=== PATIENT | male | born 1960 | race Caucasian/White ===

== ENCOUNTER 2020-06-12 05:32 | Emergency (ER) | payer BC, SELFPAY ==
[2020-06-12 05:45] VITALS: BP 125/78; PULSE 75; RESP 18; TEMP 36.6; O2SAT 99; BMI 22.3
--- NOTE | 2020-06-12 05:45 | ECG_ITS ---
Test Reason : PALPITATIONS Blood Pressure : / mmHG Vent. Rate : 080 BPM Atrial Rate : 080 BPM P-R Int : 134 ms QRS Dur : 094 ms QT Int : 394 ms P-R-T Axes : 052 -06 006 degrees QTc Int : 454 ms Sinus rhythm with Premature supraventricular complexes in a pattern of bigeminy Abnormal ECG No previous ECGs available Referred By: Sophia Kramer Electronically Signed By:JAIME LANCE MD
--- NOTE | 2020-06-12 06:45 | ED.ARRPALP ---
HPI - Arrhythmia/Palpitations General Chief Complaint: Arrhythmia/Palpitations Stated Complaint: HEART RACING Time Seen by Provider: 06/12/20 06:45 Source: patient Mode of arrival: ambulatory Limitations: no limitations History of Present Illness MD complaint: skipped beats and palpitations Onset (ago): hour(s) (few) Duration: constant Severity: mild Context: occurred during rest Associated symptoms: denies other symptoms Related Data Allergies Allergy/AdvReac Type Severity Reaction Status Date / Time acetaminophen [From PERCOCET] Allergy Unknown VOMITING Verified 06/12/20 06:32 oxycodone [From PERCOCET] Allergy Unknown VOMITING Verified 06/12/20 06:32 Review of Systems Review of Systems: Constitutional : No Weight loss, No Fever, No Chills ENT/Mouth : No sore throat, No Rhinorrhea Eyes: No Eye Pain, No Swelling Cardiovascular : no Chest Pain, no SOB, no Dyspnea on Exertion, No Orthopnea, No Edema, pos Palpitations Respiratory : No Cough, No Sputum Gastrointestinal : pos Nausea, No Vomiting, No Diarrhea, No abdominal Pain, No Hematochezia, No Melena Genitourinary : No Dysuria, No Urinary Frequency Musculoskeletal : No joint pain, No Myalgias, No Joint Swelling Skin : No Skin Lesions, No rash Neuro : No Weakness, No Numbness, No Dizziness, No Headache Psych : No Anxiety/Panic, No Depression Heme/Lymph: No Bruising, No Lymphadenopathy Endocrine : No Polyuria, No Polydipsia All other systems reviewed and are negative [facility] Past Medical History Attestation statement: The following information was validated with the patient. Medical History Parkinson disease Surgical History History of back surgery Hx of aortic aneurysm repair Social History Social History Smoking Status: Never smoker Use of substances other than those prescribed or required for medical reasons: No Advance Directives: No Physical Exam Vital Signs: Vital Signs: Last Vital Signs Temp 98 F 06/12/20 05:45 Pulse 71 06/12/20 08:57 Resp 18 06/12/20 08:57 BP 104/62 06/12/20 08:57 Pulse Ox 98 06/12/20 08:57 Body Mass Index 22.3 Appearance: Alert. Oriented X3. No acute distress. Eyes: Pupils equal, round and reactive to light. ENT: Pharynx normal. Neck: Normal inspection. Neck supple. CVS: Normal heart rate and rhythm. Pulses normal. Respiratory: No respiratory distress. Breath sounds normal. Abdomen: Soft and nontender. Skin: Skin warm and dry. Normal skin color. Normal skin turgor. Extremities: No lower extremity edema. No calf ttp Neuro: Oriented X 3. No motor deficit. No sensory deficit. Course Course Course Narrative: no acute findings at this time, stable for DC, PACs will refer to PCP and Cardiology MDM - Arrhythmia/Palpitations MDM Narrative Medical decision making narrative: 59 yo male with hx of Parkinson's s/p aortic thoracic aneurysm repair 10+ years ago - here with palpitations no associated SOB/CP will need labs, lytes, CXR, EKG, PACs seen on tele but not in bigeminy, takes no BB denies GIB symptoms doubt ACS/PE/aneurysm issue, dispo per results and findings Lab Data Result diagrams: 06/12/20 07:05 06/12/20 07:05 Labs: Lab Results 06/12/20 06/12/20 06/12/20 Range/Units 07:05 07:05 07:05 WBC 5.5 (4.8-10.8) X10*3/uL RBC 4.75 (4.60-5.80) X10*6/uL Hgb 14.7 (14.0-18.0) g/dl Hct 43.7 (42-52) % MCV 92.0 (80-98) fL MCH 30.9 (27.0-33.0) pg MCHC 33.6 (31.0-36.0) g/dl RDW 12.8 (11.0-16.0) % Plt Count 187 (160-400) X10*3/uL MPV 9.5 (9.4-12.4) fL Immature Gran % (Auto) 0.2 (0.0-0.4) % Neut % (Auto) 65.4 (45-73) % Lymph % (Auto) 24.5 (20-40) % [place] % (Auto) 6.6 (2-11) % Eos % (Auto) 2.6 (0-4) % Baso % (Auto) 0.7 (0-2) % Lymph # (Auto) 1.3 (1.2-4.9) X10*3/uL [place] # (Auto) 0.4 (0.1-1.2) X10*3/uL Eos # (Auto) 0.1 (0.0-0.4) X10*3/uL Baso # (Auto) 0.0 (0.0-0.2) X10*3/uL Abs Immat Gran (auto) 0.01 (0.00-0.03) X10*3/uL Absolute Neuts (auto) 3.6 (2.0-8.3) X10*3/uL Absolute Nucleated RBC 0.000 (0.0-0.012) X10*3/uL Nucleated RBC % (auto) 0.0 (0.0-0.2) /100WBC Hold Blue Top SEE NOTE Sodium 140 (135-145) mmol/L Potassium 4.3 (3.3-5.1) mmol/l Chloride 106 (96-108) mmol/L Carbon Dioxide 29 (22-29) mmol/L Anion Gap 9 L (12-20) BUN 18 H (9-16) mg/dL Creatinine 1.21 (0.5-1.4) mg/dL Estim Creat Clear Calc 68.3 Estimated GFR > 60 Random Glucose 92 (60-115) mg/dL Calcium 9.0 (8.4-10.2) mg/dL Magnesium (1.6-2.6) mg/dL Total Bilirubin (0.0-1.0) mg/dL Direct Bilirubin (0.0-0.5) mg/dL AST (5-37) U/L ALT (0-40) U/L Alkaline Phosphatase (39-117) U/L Troponin I High Sens (<3.5-35.0) ng/L B-Natriuretic Peptide (<100) pg/mL Total Protein (6.5-8.0) g/dL Albumin (3.5-5.0) g/dL 06/12/20 06/12/20 Range/Units 07:05 07:05 WBC (4.8-10.8) X10*3/uL RBC (4.60-5.80) X10*6/uL Hgb (14.0-18.0) g/dl Hct (42-52) % MCV (80-98) fL MCH (27.0-33.0) pg MCHC (31.0-36.0) g/dl RDW (11.0-16.0) % Plt Count (160-400) X10*3/uL MPV (9.4-12.4) fL Immature Gran % (Auto) (0.0-0.4) % Neut % (Auto) (45-73) % Lymph % (Auto) (20-40) % [place] % (Auto) (2-11) % Eos % (Auto) (0-4) % Baso % (Auto) (0-2) % Lymph # (Auto) (1.2-4.9) X10*3/uL [place] # (Auto) (0.1-1.2) X10*3/uL Eos # (Auto) (0.0-0.4) X10*3/uL Baso # (Auto) (0.0-0.2) X10*3/uL Abs Immat Gran (auto) (0.00-0.03) X10*3/uL Absolute Neuts (auto) (2.0-8.3) X10*3/uL Absolute Nucleated RBC (0.0-0.012) X10*3/uL Nucleated RBC % (auto) (0.0-0.2) /100WBC Hold Blue Top Sodium (135-145) mmol/L Potassium (3.3-5.1) mmol/l Chloride (96-108) mmol/L Carbon Dioxide (22-29) mmol/L Anion Gap (12-20) BUN (9-16) mg/dL Creatinine (0.5-1.4) mg/dL Estim Creat Clear Calc Estimated GFR Random Glucose (60-115) mg/dL Calcium (8.4-10.2) mg/dL Magnesium 2.2 (1.6-2.6) mg/dL Total Bilirubin 0.9 (0.0-1.0) mg/dL Direct Bilirubin 0.4 (0.0-0.5) mg/dL AST 16 (5-37) U/L ALT 18 (0-40) U/L Alkaline Phosphatase 64 (39-117) U/L Troponin I High Sens < 3.5 (<3.5-35.0) ng/L B-Natriuretic Peptide 35 (<100) pg/mL Total Protein 6.5 (6.5-8.0) g/dL Albumin 4.4 (3.5-5.0) g/dL ECG Data Attestation: I personally reviewed and interpreted this ECG as follows: ECG interpretation date: 06/12/20 ECG interpretation time: 08:38 Interpretation: Rate: 68 Rhythm: NSR, occasional PACs Merkel: left Normal P waves. Normal MOMO. Normal QRS complex. ST T wave : normal qTC: normal prior studies: no acute ischemia The study has been interpreted contemporaneously by me. . Discharge Plan Discharge Clinical Impression: Palpitations, PAC (premature atrial contraction) Patient Disposition: Home, Self-Care Additional Instructions: return to ED for any worsening symptoms or concerns YOUR THYROID TEST IS PENDING IF ABNORMAL WE WILL CALL YOU DECREASE YOUR CAFFEINE INTAKE Referrals: Galileo Gore MD [Primary Care Provider] - 2 days (IF NOT BETTER) Vance Hall MD [Physician] - 1 week Stand Alone Forms: Work/School Release
--- NOTE | 2020-06-12 06:54 | XR_ITS ---
EXAMINATION: XR CHEST CLINICAL INFORMATION: Palpitations COMPARISON: None TECHNIQUE: Frontal view of the chest was obtained. FINDINGS: Mild scoliosis convex right dorsal spine. No significant abnormality is noted involving the heart, lungs, mediastinum, bony thorax or soft tissues. XR/XR chest 1V IMPRESSION: No active chest disease.
--- NOTE | 2020-06-12 06:56 | PC.NURSE ---
REPORT FROM NIMISHA MARTINEZ AT BEDSIDE FOR INITIAL EVALUATION PT INFORMED OF THE PLAN OF CARE, TANNERY GUMMER REVEALS NSR, NO ECTOPY
[2020-06-12 07:21] LABS: MANUAL DIFF FLAG NO
[2020-06-12 07:28] LABS: Basophils Percent Auto 0.7 % (0-2); Eosinophils Absolute Auto 0.1 X10*3/uL (0.0-0.4); Eosinophils Percent Auto 2.6 % (0-4); Hematocrit 43.7 % (42-52); Hemoglobin 14.7 g/dl (14.0-18.0); Imm Gran Abs Auto 0.01 X10*3/uL (0.00-0.03); Imm Gran Pct Auto 0.2 % (0.0-0.4); Lymphocytes Absolute Auto 1.3 X10*3/uL (1.2-4.9); Lymphocytes Percent Auto 24.5 % (20-40); Mean Corpuscular HGB Conc 33.6 g/dl (31.0-36.0); Mean Corpuscular Hemoglobin 30.9 pg (27.0-33.0); Mean Platelet Volume 9.5 fL (9.4-12.4); Monocytes Absolute Auto 0.4 X10*3/uL (0.1-1.2); Monocytes Percent Auto 6.6 % (2-11); Neutrophils Absolute Auto 3.6 X10*3/uL (2.0-8.3); Neutrophils Percent Auto 65.4 % (45-73); Platelet Count 187 X10*3/uL (160-400); Red Blood Count 4.75 X10*6/uL (4.60-5.80); Red Cell Distribution Width 12.8 % (11.0-16.0); White Blood Count 5.5 X10*3/uL (4.8-10.8)
[2020-06-12 07:45] LABS: Alanine Aminotransferase 18 U/L (0-40); Albumin Level 4.4 g/dL (3.5-5.0); Alkaline Phosphatase 64 U/L (39-117); Aspartate Amino Transferase 16 U/L (5-37); Bilirubin Direct 0.4 mg/dL (0.0-0.5); Bilirubin Total 0.9 mg/dL (0.0-1.0); Magnesium 2.2 mg/dL (1.6-2.6); Total Protein 6.5 g/dL (6.5-8.0)
[2020-06-12 07:50] LABS: B Type Natriuretic Peptide 35 pg/mL (<100); Troponin-I High Sensitivity < 3.5 ng/L (<3.5-35.0)
[2020-06-12 07:51] LABS: Anion Gap 9 (12-20); Blood Urea Nitrogen 18 mg/dL (9-16); Carbon Dioxide 29 mmol/L (22-29); Chloride 106 mmol/L (96-108); Creatinine Clr Calc Pharmacy 68.3; Estimated Glomerular Filt Rate > 60; Glucose Random 92 mg/dL (60-115); Potassium 4.3 mmol/l (3.3-5.1); Sodium 140 mmol/L (135-145)
--- NOTE | 2020-06-12 08:00 | PC.NURSE ---
NO COMPLAINTS AT THIS TIME, WAITING FOR RESULTS
--- NOTE | 2020-06-12 08:18 | ECG_ITS ---
Test Reason : PALPITION Blood Pressure : / mmHG Vent. Rate : 068 BPM Atrial Rate : 068 BPM P-R Int : 138 ms QRS Dur : 106 ms QT Int : 412 ms P-R-T Axes : 073 -18 002 degrees QTc Int : 438 ms Sinus rhythm with Premature atrial complexes with Aberrant conduction Otherwise normal ECG When compared with ECG of 12-JUN-2020 05:45, in a pattern of bigeminy is no longer Present Referred By: Sophia Kramer Electronically Signed By:JAIME LANCE MD
[2020-06-12 08:57] VITALS: BP 104/62; PULSE 71; RESP 18; O2SAT 98
[2020-06-12 13:13] LABS: Thyroid Stimulating Hormone 1.74 uIU/mL (0.32-4.0)
== END 2020-06-12 09:49 | disposition home or self-care (01) ==
PROVIDERS: Emergency Provider Emergency Medicine; PCP Internal Medicine
DX: R00.2 Palpitations (principal); I49.1 Atrial premature depolarization
CPT/HCPCS: 36415; 71045; 80048; 80076; 83735; 83880; 84443; 84484; 85025; 93005; 99283; 99285

== ENCOUNTER 2021-03-14 10:41 | Outpatient (REF) | payer BC, SELFPAY ==
[2021-03-14 10:44] LABS: MANUAL DIFF FLAG NO
[2021-03-14 11:04] LABS: Basophils Absolute Auto 0.1 X10*3/uL (0.0-0.2); Basophils Percent Auto 1.1 % (0-2); Eosinophils Absolute Auto 0.2 X10*3/uL (0.0-0.4); Eosinophils Percent Auto 3.5 % (0-4); Hematocrit 44.3 % (42-52); Hemoglobin 14.7 g/dl (14.0-18.0); Lymphocytes Absolute Auto 1.3 X10*3/uL (1.2-4.9); Lymphocytes Percent Auto 24.6 % (20-40); Mean Corpuscular HGB Conc 33.2 g/dl (31.0-36.0); Mean Corpuscular Hemoglobin 30.8 pg (27.0-33.0); Mean Corpuscular Volume 92.9 fL (80-98); Mean Platelet Volume 9.8 fL (9.4-12.4); Monocytes Absolute Auto 0.4 X10*3/uL (0.1-1.2); Monocytes Percent Auto 7.6 % (2-11); Neutrophils Absolute Auto 3.4 X10*3/uL (2.0-8.3); Neutrophils Percent Auto 63.2 % (45-73); Platelet Count 194 X10*3/uL (160-400); Red Blood Count 4.77 X10*6/uL (4.60-5.80); Red Cell Distribution Width 12.8 % (11.0-16.0); White Blood Count 5.4 X10*3/uL (4.8-10.8)
[2021-03-14 11:11] LABS: Estimated Average Glucose 103 mg/dL; Hemoglobin A1c % 5.2 %
[2021-03-14 11:18] LABS: Alanine Aminotransferase 13 U/L (0-40); Albumin Level 4.5 g/dL (3.5-5.0); Alkaline Phosphatase 65 U/L (39-117); Anion Gap 12 (12-20); Aspartate Amino Transferase 16 U/L (5-37); Bilirubin Total 1.1 mg/dL (0.0-1.0); Blood Urea Nitrogen 17 mg/dL (9-16); Carbon Dioxide 27 mmol/L (22-29); Chloride 105 mmol/L (96-108); Cholesterol 192 mg/dL; Estimated Glomerular Filt Rate 58; Glucose Fasting 93 mg/dL (60-99); HDL Cholesterol 56 mg/dL; LDL Cholesterol Calculated 120 mg/dl; Potassium 4.3 mmol/L (3.3-5.1); Sodium 140 mmol/L (135-145); Total Protein 6.7 g/dL (6.5-8.0); Triglycerides 81 mg/dL
[2021-03-14 11:31] LABS: Glucose Urine UA NEG (NEG); Leukocyte Esterase Urine NEG (NEG); Nitrite Urine NEG (NEG); Urine Blood NEG (NEG); Urine Ketones NEG (NEG); Urine Protein NEG (NEG-TRACE)
[2021-03-14 11:33] LABS: PSA,Total (Free>4and<10) 1.75 ng/mL (0.00-4.00)
[2021-03-14 11:38] LABS: Creatinine Urine 166.59 mg/dL; Microalbum/Creatinine Ratio Ur 7.2 ug/mg cr
[2021-03-14 11:44] LABS: Appearance Urine CLEAR; Color Urine YELLOW
== END 2021-03-14 10:42 | disposition home or self-care (01) ==
LOC: HO.LNP 10:41
PROVIDERS: Visit Provider Internal Medicine
DX: Z00.00 Encounter for general adult medical examination without abnormal findings (principal); R73.09 Other abnormal glucose; R97.20 Elevated prostate specific antigen [PSA]; G20 Parkinson's disease
CPT/HCPCS: 80053; 80061; 81003; 82043; 83036; 84153; 85025

== ENCOUNTER 2021-10-21 10:26 | Emergency (ER) | payer BC, SELFPAY ==
[2021-10-21 11:03] VITALS: BP 143/75; PULSE 75; RESP 19; TEMP 36.6; O2SAT 99; BMI 23.0
[2021-10-21 14:18] LABS: MANUAL DIFF FLAG NO
[2021-10-21 14:19] LABS: Basophils Absolute Auto 0.1 X10*3/uL (0.0-0.2); Basophils Percent Auto 0.8 % (0-2); Eosinophils Absolute Auto 0.2 X10*3/uL (0.0-0.4); Eosinophils Percent Auto 2.2 % (0-4); Hematocrit 44.4 % (42.0-52.0); Hemoglobin 14.9 g/dl (14.0-18.0); Imm Gran Abs Auto 0.02 X10*3/uL (0.00-0.03); Imm Gran Pct Auto 0.2 % (0.0-0.4); Lymphocytes Absolute Auto 1.7 X10*3/uL (1.2-4.9); Lymphocytes Percent Auto 19.7 % (20-40); Mean Corpuscular HGB Conc 33.6 g/dl (31.0-36.0); Mean Corpuscular Hemoglobin 31.2 pg (27.0-33.0); Mean Corpuscular Volume 92.9 fL (80.0-98.0); Mean Platelet Volume 9.2 fL (9.4-12.4); Monocytes Absolute Auto 0.4 X10*3/uL (0.1-1.2); Monocytes Percent Auto 4.8 % (2-11); Neutrophils Absolute Auto 6.3 x10*3/uL (2.0-8.3); Neutrophils Percent Auto 72.3 % (45-73); Platelet Count 194 X10*3/uL (160-400); Red Blood Count 4.78 X10*6/uL (4.60-5.80); Red Cell Distribution Width 12.5 % (11.0-16.0); White Blood Count 8.7 X10*3/uL (4.8-10.8)
[2021-10-21 14:21] LABS: Appearance Urine CLEAR; Color Urine YELLOW; Glucose Urine UA NEG (NEG); Leukocyte Esterase Urine NEG (NEG); Nitrite Urine NEG (NEG); Specific Gravity - Urine >= 1.030 (1.005-1.025); Urine Blood NEG (NEG); Urine Ketones 5 MG/DL (NEG); Urine Protein TRACE MG/DL (NEG-TRACE)
[2021-10-21 14:32] LABS: Anion Gap 12 (12-20); Blood Urea Nitrogen 15 mg/dL (9-16); Calcium 9.4 mg/dL (8.4-10.2); Carbon Dioxide 29 mmol/L (22-29); Chloride 104 mmol/L (96-108); Creatinine Clr Calc Pharmacy 65.9; Estimated Glomerular Filt Rate 58; Glucose Random 153 mg/dL (60-115); Sodium 141 mmol/L (135-145)
[2021-10-21 18:33] VITALS: BP 138/80; PULSE 71; RESP 16; TEMP 36.4; O2SAT 100
--- NOTE | 2021-10-21 18:35 | ED.MALEGU ---
HPI - Male Genitourinary General Chief complaint: Urogenital-Male Stated complaint: Trouble urinating Time Seen by Provider: 10/21/21 18:35 Source: patient Mode of arrival: ambulatory Limitations: no limitations History of Present Illness HPI Narrative: Patient history of Parkinson disease , BPH complaining of difficulty urinating unable to empty his bladder in triage post vital bladder volume was 54 mL. No fever no chills feels very anxious also no blood in the stool or urine no flank pain no history of urinary retention in the past patient is on tamsulosin and finasteride Related Data Previous Rx's Medication Instructions Recorded lorazepam 1 mg tablet (Ativan) 1 mg PO BID PRN #7 tab 10/21/21 phenazopyridine 200 mg tablet 200 mg PO TID PRN #6 tab 10/21/21 (Pyridium) Allergies Allergy/AdvReac Type Severity Reaction Status Date / Time acetaminophen [From PERCOCET] Allergy Unknown VOMITING Verified 06/12/20 06:32 oxycodone [From PERCOCET] Allergy Unknown VOMITING Verified 06/12/20 06:32 Review of Systems Review of Systems: Yes all other systems are reviewed and are negative [facility] Past Medical History Medical History Parkinson disease Surgical History History of back surgery Hx of aortic aneurysm repair Social History Social History Alcohol intake: never Patient Tobacco Use Status: Never used Tobacco Use of substances other than those prescribed or required for medical reasons: No Advance Directives: No Advance Directives Information Provided: No Physical Exam Vital Signs: Vital Signs: Last Vital Signs Temp 98 F 10/21/21 18:45 Pulse 77 10/21/21 18:45 Resp 18 10/21/21 18:45 BP 142/84 H 10/21/21 18:45 Pulse Ox 99 10/21/21 18:45 BMI result Body Mass Index 23.0 Appearance: Alert. Oriented X3. No acute distress. Very anxious Eyes: No pallor icterus ENT: Pharynx normal. Oral Mucosa moist Neck: Normal inspection. Neck supple. CVS: Normal heart rate and rhythm. Pulses normal. Respiratory: No respiratory distress. Equal air entry bilateral, no wheezing/rales/rhonchi Abdomen: Soft and nontender. Bowel sounds are present, no mass palpable, no CVA tenderness Skin: Skin warm and dry. Normal skin color. Normal skin turgor. Extremities: No lower extremity edema. No calf tenderness Neuro: Oriented X 3. MDM - Male Genitourinary MDM Narrative Medical decision making narrative: Patient seems very anxious urine is negative labs 1st negative any infection patient fell little better after Pyridium and Ativan will discharge patient home on those 2 medications Lab Data Attestation: I reviewed the patient's lab results. Result diagrams: 10/21/21 14:14 10/21/21 14:14 Labs: Lab Results 10/21/21 10/21/21 10/21/21 Range/Units 14:14 14:14 14:14 WBC 8.7 (4.8-10.8) X10*3/uL RBC 4.78 (4.60-5.80) X10*6/uL Hgb 14.9 (14.0-18.0) g/dl Hct 44.4 (42.0-52.0) % MCV 92.9 (80.0-98.0) fL MCH 31.2 (27.0-33.0) pg MCHC 33.6 (31.0-36.0) g/dl RDW 12.5 (11.0-16.0) % Plt Count 194 (160-400) X10*3/uL MPV 9.2 L (9.4-12.4) fL Immature Gran % (Auto) 0.2 (0.0-0.4) % Neut % (Auto) 72.3 (45-73) % Lymph % (Auto) 19.7 L (20-40) % Price % (Auto) 4.8 (2-11) % Eos % (Auto) 2.2 (0-4) % Baso % (Auto) 0.8 (0-2) % Lymph # (Auto) 1.7 (1.2-4.9) X10*3/uL [place] # (Auto) 0.4 (0.1-1.2) X10*3/uL Eos # (Auto) 0.2 (0.0-0.4) X10*3/uL Baso # (Auto) 0.1 (0.0-0.2) X10*3/uL Abs Immat Gran (auto) 0.02 (0.00-0.03) X10*3/uL Absolute Neuts (auto) 6.3 (2.0-8.3) x10*3/uL Absolute Nucleated RBC 0.000 (0.0-0.012) X10*3/uL Nucleated RBC % (auto) 0.0 (0.0-0.2) /100WBC Sodium 141 (135-145) mmol/L Potassium 4.0 (3.3-5.1) mmol/L Chloride 104 (96-108) mmol/L Carbon Dioxide 29 (22-29) mmol/L Anion Gap 12 (12-20) BUN 15 (9-16) mg/dL Creatinine 1.26 (0.5-1.4) mg/dL Estim Creat Clear Calc 65.9 Estimated GFR 58 Random Glucose 153 H D (60-115) mg/dL Calcium 9.4 (8.4-10.2) mg/dL Urine Color YELLOW Urine Appearance CLEAR Urine pH 6.0 (5.0-8.0) Ur Specific [place] >= 1.030 H (1.005-1.025) Urine Protein TRACE (NEG-TRACE) MG/DL Urine Glucose (UA) NEG (NEG) MG/DL Urine Ketones 5 (NEG) MG/DL Urine Blood NEG (NEG) Urine Nitrite NEG (NEG) Ur Leukocyte Esterase NEG (NEG) Discharge Plan Discharge Clinical Impression: Anxiety, Bladder irritability Patient Disposition: Home, Self-Care Instructions: Dysuria (ED), Anxiety (ED) Additional Instructions: Drink plenty of fluids Take Medication for anxiety will help in bladder spasm You do not have any bladder infection Prescriptions: New lorazepam [Ativan] 1 mg tablet 1 mg PO BID PRN (Reason: anxiety) Qty: 7 0RF phenazopyridine [Pyridium] 200 mg tablet 200 mg PO TID PRN (Reason: pain) Qty: 6 0RF
[2021-10-21 18:45] VITALS: BP 142/84; PULSE 77; RESP 18; TEMP 36.6; O2SAT 99
[2021-10-21] MEDS: Phenazopyridine HCL 200 MG TABLET PO (19:05)
[2021-10-21] MEDS: LORazepam 1 MG TABLET PO (19:05)
== END 2021-10-21 20:19 | disposition home or self-care (01) ==
PROVIDERS: Emergency Provider Internal Medicine; PCP Internal Medicine
DX: N32.89 Other specified disorders of bladder (principal); F41.9 Anxiety disorder, unspecified; G20 Parkinson's disease
CPT/HCPCS: 36415; 80048; 81003; 85025; 99283; 99284

== ENCOUNTER 2021-11-07 11:13 | Outpatient (REF) | payer BC, SELFPAY ==
[2021-11-07 11:50] LABS: Appearance Urine CLEAR; Color Urine YELLOW; Glucose Urine UA NEG (NEG); Leukocyte Esterase Urine NEG (NEG); Nitrite Urine NEG (NEG); Urine Blood NEG (NEG); Urine Ketones NEG (NEG); Urine Protein TRACE MG/DL (NEG-TRACE)
== END 2021-11-07 11:14 | disposition home or self-care (01) ==
LOC: HO.LNP 11:13
PROVIDERS: Visit Provider Internal Medicine
DX: N32.89 Other specified disorders of bladder (principal)
CPT/HCPCS: 81003; 87086

== ENCOUNTER 2022-03-19 12:24 | Outpatient (REF) | payer BC, SELFPAY ==
[2022-03-19 12:27] LABS: MANUAL DIFF FLAG NO
[2022-03-19 12:36] LABS: Basophils Absolute Auto 0.1 X10*3/uL (0.0-0.2); Basophils Percent Auto 1.2 % (0-2); Eosinophils Absolute Auto 0.3 X10*3/uL (0.0-0.4); Eosinophils Percent Auto 4.3 % (0-4); Hematocrit 43.5 % (42.0-52.0); Hemoglobin 14.6 g/dl (14.0-18.0); Imm Gran Abs Auto 0.01 X10*3/uL (0.00-0.03); Imm Gran Pct Auto 0.2 % (0.0-0.4); Lymphocytes Absolute Auto 1.7 X10*3/uL (1.2-4.9); Lymphocytes Percent Auto 28.8 % (20-40); Mean Corpuscular HGB Conc 33.6 g/dl (31.0-36.0); Mean Corpuscular Hemoglobin 31.1 pg (27.0-33.0); Mean Corpuscular Volume 92.6 fL (80.0-98.0); Mean Platelet Volume 9.7 fL (9.4-12.4); Monocytes Absolute Auto 0.4 X10*3/uL (0.1-1.2); Monocytes Percent Auto 6.6 % (2-11); Neutrophils Absolute Auto 3.4 x10*3/uL (2.0-8.3); Neutrophils Percent Auto 58.9 % (45-73); Platelet Count 194 X10*3/uL (160-400); Red Cell Distribution Width 12.8 % (11.0-16.0); White Blood Count 5.8 X10*3/uL (4.8-10.8)
[2022-03-19 12:40] LABS: Appearance Urine Clear; Color Urine Yellow; Glucose Urine UA Negative (Negative); Leukocyte Esterase Urine Negative (Negative); Nitrite Urine Negative (Negative); Urine Blood Negative (Negative); Urine Ketones Negative (Negative); Urine Protein Negative (Neg-Trace)
[2022-03-19 12:52] LABS: Alanine Aminotransferase 12 U/L (0-40); Albumin Level 4.5 g/dL (3.5-5.0); Alkaline Phosphatase 60 U/L (39-117); Anion Gap 14 (12-20); Aspartate Amino Transferase 14 U/L (5-37); Bilirubin Total 1.1 mg/dL (0.0-1.0); Blood Urea Nitrogen 19 mg/dL (9-16); Carbon Dioxide 28 mmol/L (22-29); Chloride 105 mmol/L (96-108); Cholesterol 193 mg/dL; Estimated Average Glucose 103 mg/dL; Estimated Glomerular Filt Rate 58; Glucose Fasting 93 mg/dL (60-99); HDL Cholesterol 65 mg/dL; Hemoglobin A1c % 5.2 %; LDL Cholesterol Calculated 115 mg/dl; Potassium 4.2 mmol/L (3.3-5.1); Sodium 143 mmol/L (135-145); Total Protein 6.7 g/dL (6.5-8.0); Triglycerides 69 mg/dL
[2022-03-19 12:54] LABS: Bacteria Urine None Seen (None Seen); Hyaline Casts Urine 0-2 /LPF (0-2); RBC Urine 0-2 /HPF (0-2); Squamous Epithelial Cell Urine 0-2 /HPF (0-2); WBC Urine 0-5 /HPF (0-5)
[2022-03-19 13:04] LABS: Creatinine Urine 139.18 mg/dL; Microalbum/Creatinine Ratio Ur 5.7 ug/mg cr
[2022-03-19 13:15] LABS: PSA,Total (Free>4and<10) 1.17 ng/mL (0.00-4.00)
== END 2022-03-19 12:25 | disposition home or self-care (01) ==
LOC: HO.LNP 12:24
PROVIDERS: Visit Provider Internal Medicine
DX: Z00.00 Encounter for general adult medical examination without abnormal findings (principal); R73.03 Prediabetes; R97.20 Elevated prostate specific antigen [PSA]
CPT/HCPCS: 80053; 80061; 81001; 82043; 83036; 84153; 85025

== ENCOUNTER 2022-04-10 10:44 | Outpatient (REF) | payer BC, SELFPAY ==
--- NOTE | ~2022-04-10 | MM_ITS ---
EXAMINATION: MM DIAGNOSTIC DIGITAL BREAST TOMOSYNTHESIS, BILATERAL US DIAGNOSTIC ULTRASOUND BREAST, RIGHT CLINICAL INFORMATION: Male age 61 with palpable mass outer right breast noted at routine clinical exam. COMPARISON: No prior breast imaging. TECHNIQUE: Digital breast tomosynthesis is performed in both the craniocaudal and mediolateral oblique views along with computer-aided detection (CAD). Synthesized 2D images are generated from the tomosynthesis. Ultrasound right breast is targeted to the outer breast. Grayscale imaging and color Doppler are performed without and with harmonics. FINDINGS: There are scattered areas of fibroglandular density (ACR BI-RADS breast composition Category b). Left breast shows some mild gynecomastia type pattern retroareolar region. There is no mass or architectural abnormality. Neither breast shows abnormal calcifications. The axilla and skin contours are unremarkable. Right breast has a macrolobulated circumscribed smooth mass in the area of palpable concern outer quadrant measuring approximately 3.0 x 2.7 x 2.9 cm. Ultrasound right breast demonstrates a unilocular simple appearing cystic lesion just beneath the dermis corresponding to finding on mammography measuring 3.1 x 2.7 x 1.3 cm. There is thin imperceptible wall and increased through-transmission of sound. No internal septation or solid component. Some reverberation artifact suggested on initial images, not reproducible. No associated color flow. There is no visible claw sign with the skin to suggest dermal origin. Additional imaging right axilla demonstrates no lymphadenopathy. Results are discussed with the patient at time of visit. The cystic lesion on the right appears below the dermis. Cysts in males are extremely rare. Tissue sampling is suggested. A surgical consult will be requested. MM/MM tomosynthesis diagnostic BI IMPRESSION: Right: -Unilocular cystic mass outer breast 3 cm, likely arising deep to dermis. Left: -Mild benign gynecomastia. ASSESSMENT: BI-RADS 4: Suspicious RECOMMENDATION: Surgical consult.
== END 2022-04-10 10:45 | disposition home or self-care (01) ==
LOC: HO.MAMMO 10:44
PROVIDERS: PCP Internal Medicine; Visit Provider Internal Medicine
DX: N63.15 Unspecified lump in the right breast, overlapping quadrants (principal)
CPT/HCPCS: 76642; 77062; 77066

== ENCOUNTER 2022-04-16 07:55 | Outpatient (REF) | payer BC, SELFPAY ==
--- NOTE | ~2022-04-16 | MM_ITS ---
EXAMINATION: ULTRASOUND GUIDED CORE BIOPSY BREAST, RIGHT POST PROCEDURE DIGITAL MAMMOGRAM, RIGHT CLINICAL INFORMATION: 61-year-old male with unilocular circumscribed cyst periareolar right breast, 3.1 x 2.7 x 1.3 cm. COMPARISON: Diagnostic mammography and targeted right breast ultrasound 04/10/2022. FINDINGS: Case and management plans reviewed intra-departmentally and discussed with surgeon in advance of today's appointment. Proper informed consent is obtained from the patient after discussion of the procedure, potential risks and complications, and alternatives. Patient was given an opportunity for questions. The patient appeared to understand. The patient consented to the procedure and signed the consent form. GUIDANCE: Ultrasound-guided; aseptic technique. LESION: Unilocular outer right periareolar cyst, male age 61. APPROACH: Oblique lateral medial. ANESTHESIA: 10 mL carbonated 1% lidocaine. DERMATOTOMY: Single skin miri dermatotomy performed. NEEDLE: 14-gauge Achieve core biopsy device with 13.5-gauge co-axial guide needle. CORES: 9 passes performed with approximately 4 cores with solid material. The cyst is fully collapsed after sampling. CLIP: HydroMARK; shape: open coil. POST PROCEDURE UNILATERAL DIGITAL MAMMOGRAM: The post biopsy mammogram is performed in separate room using separate digital mammography equipment from the biopsy procedure. CC x2, ML views are obtained. There are scattered areas of fibroglandular density (breast composition category: b). The clip marker is in position. The cyst is no longer demonstrated. No gross hematoma. The patient tolerated the procedure well. No immediate complications. Home instructions reviewed with the patient. Final pathology results are pending. MM/MM diagnostic mammo unilat RT IMPRESSION: 1. Status post ultrasound-guided core biopsy right breast. 2. Clip placed: HydroMARK; shape: open coil. 3. Pathology pending. An addendum report will be issued.
[2022-04-16] MEDS: Lidocaine HCl 1 % 20 ML VIAL 9 ML SUBCUT (09:22)
[2022-04-16] MEDS: Sodium Bicarbonate 8.4% 50 MEQ/50 ML VIAL SUBCUT (09:24)
== END 2022-04-16 07:56 | disposition home or self-care (01) ==
LOC: HO.MAMMO 07:55
PROVIDERS: PCP Internal Medicine; Visit Provider Surgery
DX: N60.01 Solitary cyst of right breast (principal)
CPT/HCPCS: 19083; 77062; 77065; 88305; A4648

== ENCOUNTER 2022-10-21 06:26 | Day surgery (SDC) | payer BC, SELFPAY ==
--- NOTE | 2022-10-20 13:45 | P.CONAN_ITS ---
Documented by User: Jazmine Jalloh NP 10/20/22 13:45 HPI - Anesthesia Eval Consult details Narrative: 62yo M for Colonoscopy PMFSH Active Problems Active Problems: All Active Problems (Updated 04/14/22 @ 15:20 by Gulshan Pelayo MD) Cyst of right breast (Acute) Past Medical History Medical History Parkinson disease Family History Family History Father Lung cancer Mother Breast cancer Surgical History Surgical History (Updated 10/20/22 @ 13:40 by Shayy Auguste RN) H/O partial thyroidectomy History of back surgery Hx of aortic aneurysm repair Social History Social History Alcohol intake: current Alcohol intake frequency: holidays/special occasions only Alcohol type: beer Patient Tobacco Use Status: Never used Tobacco Use of substances other than those prescribed or required for medical reasons: No Are you DNR?: No Advance Directives: No Advance Directives Information Provided: Yes Meds Allergies Allergy/AdvReac Type Severity Reaction Status Date / Time acetaminophen [From PERCOCET] Allergy Unknown VOMITING Verified 04/14/22 15:09 oxycodone [From PERCOCET] Allergy Unknown VOMITING Verified 04/14/22 15:09 Home Medications Medication Instructions Recorded Confirmed Last Taken Type carbidopa 25 mg-levodopa 100 mg 0 tab PO 04/14/22 04/23/22 Unknown History tablet finasteride 5 mg tablet 5 mg PO DAILY 04/14/22 04/16/22 Unknown History gabapentin 300 mg capsule 80,310,900 mg PO DAILY 04/14/22 04/16/22 Unknown History modafinil 100 mg tablet 100 mg PO DAILY 04/14/22 04/16/22 Unknown History sildenafil 100 mg tablet 50 mg PO DAILY PRN 04/14/22 04/16/22 Unknown History tamsulosin 0.4 mg capsule 0.4 mg PO BID 04/14/22 04/16/22 Unknown History aspirin 81 mg tablet 81 mg PO DAILY 10/20/22 10/20/22 Unknown History Exam Exam Date and Time: October 20, [id number] Assessment and Plan Assessment Anesthesia Assessment: Chart Reviewed Documented by User: Alejandra Ramon MD 10/21/22 09:03 [facility] Past Medical History Medical History Parkinson disease Family History Family History Father Lung cancer Mother Breast cancer Family history of problems with anesthesia: No Surgical History Surgical History (Updated 10/20/22 @ 13:40 by Shayy Auguste RN) H/O partial thyroidectomy History of back surgery Hx of aortic aneurysm repair History of Problems with Anesthesia: Yes Social History Social History Alcohol intake: current Alcohol intake frequency: holidays/special occasions only Alcohol type: beer Patient Tobacco Use Status: Never used Tobacco Use of substances other than those prescribed or required for medical reasons: No Are you DNR?: No Advance Directives: No Advance Directives Information Provided: Yes Meds Allergies Allergy/AdvReac Type Severity Reaction Status Date / Time acetaminophen [From PERCOCET] Allergy Unknown VOMITING Verified 04/14/22 15:09 oxycodone [From PERCOCET] Allergy Unknown VOMITING Verified 04/14/22 15:09 Home Medications Medication Instructions Recorded Confirmed Last Taken Type carbidopa 25 mg-levodopa 100 mg 0 tab PO 04/14/22 04/23/22 Unknown History tablet finasteride 5 mg tablet 5 mg PO DAILY 04/14/22 04/16/22 Unknown History gabapentin 300 mg capsule 80,310,900 mg PO DAILY 04/14/22 04/16/22 Unknown History modafinil 100 mg tablet 100 mg PO DAILY 04/14/22 04/16/22 Unknown History sildenafil 100 mg tablet 50 mg PO DAILY PRN 04/14/22 04/16/22 Unknown History tamsulosin 0.4 mg capsule 0.4 mg PO BID 04/14/22 04/16/22 Unknown History aspirin 81 mg tablet 81 mg PO DAILY 10/20/22 10/20/22 Unknown History Exam Airway Mallampati Class: II TM Dist: >3cm Neck ROM: Full Heart: rr Lungs: cta Assessment and Plan Assessment Anesthesia Assessment: Anesthesia Plan Discussed Final Anesthetic Review Family History of Problems with Anesthesia: No History of Problems with Anesthesia: Yes NPO: Yes ASA Class: II Final Preanesthetic Review: No Changes in Pt Med Stat, Meds/Allgs Chart Reviewed, Consent Obtained/Reviewed and Anes Risks/Benef Reviewed Patient Risk: Low Procedure Risk: Low Anesthetic Plan Anesthetic Plan: MAC: Disposition: Standard PACU
[2022-10-21 06:47] VITALS: BP 129/73; PULSE 75; RESP 16; TEMP 36.6; O2SAT 99; BMI 23.0
[2022-10-21] MEDS: Lactated Ringers 1,000 ML 100 ML IVCONT (06:58)
[2022-10-21 08:31] VITALS: BP 98/56; PULSE 66; RESP 18; TEMP 36.6; O2SAT 96
--- NOTE | 2022-10-21 08:33 | PM.OP ---
Brief Operative Note Date of Service: 10/21/22 Pre-op diagnosis: Screening Post-op diagnosis: other (Diverticulosis) Procedure: Colonoscopy to the cecum Surgeon: Mj Pena Anesthesia: MAC Was an Enterprise Systems Administrator used for this Procedure?: No Estimated blood loss (mL): 0 Pathology: none sent Condition: stable Disposition: PACU
[2022-10-21 08:46] VITALS: BP 115/65; PULSE 68; RESP 16; O2SAT 99
[2022-10-21 08:58] VITALS: BP 120/75; PULSE 70; RESP 16; TEMP 36.4; O2SAT 99
--- NOTE | 2022-10-21 20:19 | OP_ITS ---
DATE OF SERVICE: 10/21/2022 SURGEON: Mj Pena MD PREOPERATIVE DIAGNOSIS: POSTOPERATIVE DIAGNOSIS: PROCEDURE PERFORMED: Colonoscopy to the cecum. ESTIMATED BLOOD LOSS: COMPLICATIONS: ANESTHESIA: Monitored anesthesia care. ASSISTANTS: SPECIMENS: PREOPERATIVE DIAGNOSES: Colorectal cancer screening and personal history of tubular adenoma of the colon. POSTOPERATIVE DIAGNOSES: Colorectal cancer screening and personal history of tubular adenoma of the colon, diverticulosis, and internal hemorrhoids. INDICATION: The patient presents for followup of personal history of tubular adenomas of the colon and colorectal cancer screening. Full consent has been obtained from him for this, including risks of bleeding and perforation. DESCRIPTION OF PROCEDURE: The patient was placed in the left lateral decubitus position. The digital rectal exam revealed no abnormalities. The Olympus video pediatric colonoscope was entered into the rectum and advanced easily to the cecum. Once in the cecum, I did identify a normal-appearing cecal pouch with appendiceal orifice and a normal-appearing ileocecal valve. The entire cecum was well visualized and appeared normal without any sign of mass or ulceration. The scope was slowly withdrawn assessing all mucosal surfaces carefully. Preparation was excellent. There was a translumination in the light deep in the right lower quadrant. I did not visualize any sign of polyps, colitis, nor angiodysplasia. There was a mild amount of sigmoid diverticulosis. In the rectum, the scope was retroflexed, visualizing small internal hemorrhoids, but no other pathology. The rectal mucosa appeared normal. The scope was straightened and withdrawn from the patient. He tolerated the procedure well and was returned to the recovery area in stable condition. IMPRESSION: 1. Mild sigmoid diverticulosis. 2. Small internal hemorrhoids. PLAN: Given today's negative exam but previous history of tubular adenoma, I would recommend a followup colonoscopy in 5 years for further screening and surveillance. He will otherwise see me on a p.r.n. basis. Mj Pena MD RMEdilma/[place] / [phone] [place]
== END 2022-10-21 09:41 | disposition home or self-care (01) ==
PROVIDERS: PCP Internal Medicine; Visit Provider Internal Medicine
PROC: 0DJD8ZZ Inspection of Lower Intestinal Tract, Via Natural or Artificial Opening Endoscopic (ICD-10-PCS; CPT 45378; principal; 2022-10-21 07:30)
DX: Z12.11 Encounter for screening for malignant neoplasm of colon (principal); Z86.010 Personal history of colon polyps; K57.30 Diverticulosis of large intestine without perforation or abscess without bleeding; K64.8 Other hemorrhoids; G20 Parkinson's disease; Z79.899 Other long term (current) drug therapy; Z88.8 Allergy status to other drugs, medicaments and biological substances
CPT/HCPCS: 45378

== ENCOUNTER 2023-02-07 02:53 | Emergency (ER) | payer BC, SELFPAY ==
[2023-02-07 03:01] VITALS: BP 159/82; PULSE 109; RESP 20; TEMP 36.4; O2SAT 96; BMI 23.0
[2023-02-07 03:18] LABS: MANUAL DIFF FLAG NO
[2023-02-07 03:19] LABS: Basophils Absolute Auto 0.1 X10*3/uL (0.0-0.2); Basophils Percent Auto 0.5 % (0-2); Eosinophils Percent Auto 0.2 % (0-4); Hematocrit 43.6 % (42.0-52.0); Hemoglobin 15.1 g/dl (14.0-18.0); Imm Gran Abs Auto 0.03 X10*3/uL (0.00-0.03); Imm Gran Pct Auto 0.2 % (0.0-0.4); Lymphocytes Percent Auto 7.5 % (20-40); Mean Corpuscular HGB Conc 34.6 g/dl (31.0-36.0); Mean Corpuscular Hemoglobin 31.2 pg (27.0-33.0); Mean Corpuscular Volume 90.1 fL (80.0-98.0); Mean Platelet Volume 8.8 fL (9.4-12.4); Monocytes Absolute Auto 0.4 X10*3/uL (0.1-1.2); Monocytes Percent Auto 3.3 % (2-11); Neutrophils Absolute Auto 11.3 x10*3/uL (2.0-8.3); Neutrophils Percent Auto 88.3 % (45-73); Platelet Count 201 X10*3/uL (160-400); Red Blood Count 4.84 X10*6/uL (4.60-5.80); Red Cell Distribution Width 12.6 % (11.0-16.0); White Blood Count 12.8 X10*3/uL (4.8-10.8)
[2023-02-07 03:36] LABS: Alanine Aminotransferase 7 U/L (0-40); Albumin Level 4.8 g/dL (3.5-5.0); Alkaline Phosphatase 65 U/L (39-117); Anion Gap 15 (12-20); Aspartate Amino Transferase 15 U/L (5-37); Bilirubin Direct 0.3 mg/dL (0.0-0.5); Blood Urea Nitrogen 14 mg/dL (9-16); Calcium 9.7 mg/dL (8.4-10.2); Carbon Dioxide 20 mmol/L (22-29); Chloride 109 mmol/L (96-108); Estimated Glomerular Filt Rate > 60; Glucose Random 119 mg/dL (60-115); Lipase 34 U/L (8-78); Potassium 3.8 mmol/L (3.3-5.1); Sodium 140 mmol/L (135-145); Total Protein 7.4 g/dL (6.5-8.0)
[2023-02-07 04:15] LABS: Appearance Urine Clear; Color Urine Yellow; Glucose Urine UA Negative (Negative); Leukocyte Esterase Urine Negative (Negative); Nitrite Urine Negative (Negative); PH 5.5 (5.0-9.0); Specific Gravity - Urine <= 1.005 (1.005-1.025); UMIC TRIGGER UACC YES; Urine Blood Large (3+) (Negative); Urine Ketones Negative (Negative); Urine Protein Negative (Neg-Trace)
[2023-02-07 04:17] LABS: Bacteria Urine None Seen (None Seen); Hyaline Casts Urine 0-2 /LPF (0-2); Squamous Epithelial Cell Urine 0-2 /HPF (0-2); WBC Urine 0-5 /HPF (0-5)
--- NOTE | 2023-02-07 04:27 | PC.NURSE ---
alert, mental status at baseline. cath without difficulty. reports great relief/resting. family at bedside.
--- NOTE | 2023-02-07 05:46 | ED.MALEGU ---
HPI - Male Genitourinary General Chief complaint: Urogenital-Male Stated complaint: Trouble using bathroom Time Seen by Provider: 02/07/23 03:40 Source: patient and family Mode of arrival: ambulatory History of Present Illness HPI Narrative: 62-year-old male with underlying Parkinson's disorder presents for concerns regarding possible UTI but reporting that he is not passed urine in several hours. Patient states that he was in [place] at a concert, had several beers, and then on the right back on the bus was unable to urinate. He denies any fevers or chills but endorses that he was recently treated for urinary tract infection. Related Data Home Medications Medication Instructions Recorded Confirmed carbidopa 25 mg-levodopa 100 mg 0 tab PO 04/14/22 04/23/22 tablet finasteride 5 mg tablet 5 mg PO DAILY 04/14/22 04/16/22 gabapentin 300 mg capsule 80,310,900 mg PO DAILY 04/14/22 04/16/22 modafinil 100 mg tablet 100 mg PO DAILY 04/14/22 04/16/22 sildenafil 100 mg tablet 50 mg PO DAILY PRN 04/14/22 04/16/22 tamsulosin 0.4 mg capsule 0.4 mg PO BID 04/14/22 04/16/22 aspirin 81 mg tablet 81 mg PO DAILY 10/20/22 10/20/22 Previous Rx's Medication Instructions Recorded lorazepam 1 mg tablet (Ativan) 1 mg PO BID PRN anxiety #7 tabs 10/21/21 Allergies Allergy/AdvReac Type Severity Reaction Status Date / Time acetaminophen [From PERCOCET] Allergy Unknown VOMITING Verified 02/07/23 03:04 oxycodone [From PERCOCET] Allergy Unknown VOMITING Verified 02/07/23 03:04 Review of Systems Review of Systems: Pertinent positives and negatives as stated in HPI PMF Past Medical History Source: nursing notes reviewed Medical History Parkinson disease Surgical History H/O partial thyroidectomy History of back surgery Hx of aortic aneurysm repair Family History Family History Father Lung cancer Mother Breast cancer Social History Social History Alcohol intake: current Alcohol intake frequency: holidays/special occasions only Alcohol type: beer Patient Tobacco Use Status: Never used Tobacco Advance Directives: No Advance Directives Information Provided: Yes Physical Exam Vital Signs: Vital Signs: Last Vital Signs Temp 97.6 F 02/07/23 03:01 Pulse 109 H 02/07/23 03:01 Resp 20 02/07/23 03:01 BP 159/82 H 02/07/23 03:01 Pulse Ox 96 02/07/23 03:01 O2 Del Method Room Air 02/07/23 03:01 BMI result Body Mass Index 23.0 VITAL SIGNS: Reviewed. GENERAL: Well developed, well nourished, in no acute distress. HEAD: Normocephalic/atraumatic EYES: PERRLA, EOMI LUNGS: Normal breath sounds. No adventitious sounds or accessory muscle use. SpO2<96> CARDIOVASCULAR: Regular rate and rhythm without noted murmurs ABDOMEN: Soft, mild tenderness that suprapubic, non-distended with bowel sounds. MUSCULOSKELETAL: No tenderness, deformities, or effusions noted on gross inspection. EXTREMITIES: No cyanosis, clubbing or edema. SKIN: Inspection of the skin reveals no rashes NEUROLOGIC: Alert and oriented x 4. Strength and sensation to light touch were grossly intact x 4, mild tremor. Medical Decision Making Medical Decision Making MDM Narrative: 62-year-old male with history and clinical presentation, DDX: Urinary tension, UTI. On bladder scan patient was noted to have over 400 cc of urine in his bladder. I reviewed all investigations and there is a noted leukocytosis with left shift, but due to urinary retention suspect that this is a stress response as patient is afebrile and does not report any cough. In addition, urinalysis negative for evidence of infection but does demonstrate hematuria likely secondary to prostatic bleeding secondary to Gleason catheter insertion. There has been significant urinary output indicative of urinary tension. Patient denied any recent medication changes in suspect that may be the urinary retention is secondary to underlying disease process. All findings and results were discussed with him at bedside and he understands he will need to follow-up with urology and he will be discharged with a Gleason catheter. Otherwise, chemistry results are grossly within normal limits. Differential Diagnosis Please see the discussion above Admission/Observation Consideration of admission/observation: Escalation of care including admission/observation considered Lab Data Please see the discussion above 02/07/23 03:14 02/07/23 03:14 Labs: Lab Results 02/07/23 02/07/23 02/07/23 Range/Units 03:14 03:14 04:07 WBC 12.8 H (4.8-10.8) X10*3/uL RBC 4.84 (4.60-5.80) X10*6/uL Hgb 15.1 (14.0-18.0) g/dl Hct 43.6 (42.0-52.0) % MCV 90.1 (80.0-98.0) fL MCH 31.2 (27.0-33.0) pg MCHC 34.6 (31.0-36.0) g/dl RDW 12.6 (11.0-16.0) % Plt Count 201 (160-400) X10*3/uL MPV 8.8 L (9.4-12.4) fL Immature Gran % (Auto) 0.2 (0.0-0.4) % Neut % (Auto) 88.3 H (45-73) % Lymph % (Auto) 7.5 L (20-40) % [place] % (Auto) 3.3 (2-11) % Eos % (Auto) 0.2 (0-4) % Baso % (Auto) 0.5 (0-2) % Lymph # (Auto) 1.0 L (1.2-4.9) X10*3/uL [place] # (Auto) 0.4 (0.1-1.2) X10*3/uL Eos # (Auto) 0.0 (0.0-0.4) X10*3/uL Baso # (Auto) 0.1 (0.0-0.2) X10*3/uL Abs Immat Gran (auto) 0.03 (0.00-0.03) X10*3/uL Absolute Neuts (auto) 11.3 H (2.0-8.3) x10*3/uL Absolute Nucleated RBC 0.000 (0.0-0.012) X10*3/uL Nucleated RBC % (auto) 0.0 (0.0-0.2) /100WBC Sodium 140 (135-145) mmol/L Potassium 3.8 (3.3-5.1) mmol/L Chloride 109 H (96-108) mmol/L Carbon Dioxide 20 L (22-29) mmol/L Anion Gap 15 (12-20) BUN 14 (9-16) mg/dL Creatinine 1.14 (0.5-1.4) mg/dL Estim Creat Clear Calc 72.0 Estimated GFR > 60 Random Glucose 119 H (60-115) mg/dL Calcium 9.7 D (8.4-10.2) mg/dL Total Bilirubin 1.0 (0.0-1.0) mg/dL Direct Bilirubin 0.3 (0.0-0.5) mg/dL AST 15 (5-37) U/L ALT 7 (0-40) U/L Alkaline Phosphatase 65 (39-117) U/L Total Protein 7.4 (6.5-8.0) g/dL Albumin 4.8 (3.5-5.0) g/dL Lipase 34 (8-78) U/L Urine Color Cancelled Urine Appearance Cancelled Urine pH Cancelled Ur Specific [place] Cancelled Urine Protein Cancelled Urine Glucose (UA) Cancelled Urine Ketones Cancelled Urine Blood Cancelled Urine Nitrite Cancelled Ur Leukocyte Esterase Cancelled Urine RBC (0-2) /HPF Urine WBC (0-5) /HPF Ur Squamous Epith Cells (0-2) /HPF Urine Bacteria (None Seen) Hyaline Casts (0-2) /LPF 02/07/23 Range/Units 04:07 WBC (4.8-10.8) X10*3/uL RBC (4.60-5.80) X10*6/uL Hgb (14.0-18.0) g/dl Hct (42.0-52.0) % MCV (80.0-98.0) fL MCH (27.0-33.0) pg MCHC (31.0-36.0) g/dl RDW (11.0-16.0) % Plt Count (160-400) X10*3/uL MPV (9.4-12.4) fL Immature Gran % (Auto) (0.0-0.4) % Neut % (Auto) (45-73) % Lymph % (Auto) (20-40) % [place] % (Auto) (2-11) % Eos % (Auto) (0-4) % Baso % (Auto) (0-2) % Lymph # (Auto) (1.2-4.9) X10*3/uL [place] # (Auto) (0.1-1.2) X10*3/uL Eos # (Auto) (0.0-0.4) X10*3/uL Baso # (Auto) (0.0-0.2) X10*3/uL Abs Immat Gran (auto) (0.00-0.03) X10*3/uL Absolute Neuts (auto) (2.0-8.3) x10*3/uL Absolute Nucleated RBC (0.0-0.012) X10*3/uL Nucleated RBC % (auto) (0.0-0.2) /100WBC Sodium (135-145) mmol/L Potassium (3.3-5.1) mmol/L Chloride (96-108) mmol/L Carbon Dioxide (22-29) mmol/L Anion Gap (12-20) BUN (9-16) mg/dL Creatinine (0.5-1.4) mg/dL Estim Creat Clear Calc Estimated GFR Random Glucose (60-115) mg/dL Calcium (8.4-10.2) mg/dL Total Bilirubin (0.0-1.0) mg/dL Direct Bilirubin (0.0-0.5) mg/dL AST (5-37) U/L ALT (0-40) U/L Alkaline Phosphatase (39-117) U/L Total Protein (6.5-8.0) g/dL Albumin (3.5-5.0) g/dL Lipase (8-78) U/L Urine Color Yellow Urine Appearance Clear Urine pH 5.5 Ur Specific W[place] <= 1.005 Urine Protein Negative Urine Glucose (UA) Negative Urine Ketones Negative Urine Blood Large (3+) H Urine Nitrite Negative Ur Leukocyte Esterase Negative Urine RBC 6-10 H (0-2) /HPF Urine WBC 0-5 (0-5) /HPF Ur Squamous Epith Cells 0-2 (0-2) /HPF Urine Bacteria None Seen (None Seen) Hyaline Casts 0-2 (0-2) /LPF External Record Review External record reviewed: Outpatient record and Prior outpatient labs Discharge Plan Discharge Clinical Impression: Acute urinary retention, Hematuria Patient Disposition: Home, Self-Care Instructions: Urinary Retention in Men (ED), Gleason Catheter Placement and Care (ED), Hematuria (ED) Additional Instructions: 1. Resume all home medications as prescribed. 2. Please review the information for Gleason catheter care. 3. You have been provided with a referral to Urology and should call the office on Wednesday morning. Return to the ER for any worsening symptoms. Prescriptions: No Action lorazepam [Ativan] 1 mg tablet 1 mg PO BID PRN (Reason: anxiety) Qty: 7 0RF aspirin 81 mg Tablet 81 mg PO DAILY gabapentin 300 mg capsule 80,310,900 mg PO DAILY tamsulosin 0.4 mg capsule 0.4 mg PO BID finasteride 5 mg tablet 5 mg PO DAILY modafinil 100 mg tablet 100 mg PO DAILY carbidopa-levodopa 25-100 mg tablet 0 tab PO sildenafil 100 mg tablet 50 mg PO DAILY PRN Referrals: Stella Rios MD [Physician] - Galileo Gore MD [Primary Care Provider] -
== END 2023-02-07 06:16 | disposition home or self-care (01) ==
PROVIDERS: Emergency Provider Student in an Organized Health Care Education/Training Program; PCP Internal Medicine
DX: N39.0 Urinary tract infection, site not specified (principal); R33.9 Retention of urine, unspecified; R31.9 Hematuria, unspecified; Z79.899 Other long term (current) drug therapy
CPT/HCPCS: 36415; 80048; 80076; 81001; 83690; 85025; 99284

== ENCOUNTER 2023-03-08 10:39 | Outpatient (REF) | payer BC, SELFPAY ==
[2023-03-08 11:00] LABS: Appearance Urine Clear; Color Urine Yellow; Glucose Urine UA Negative (Negative); Leukocyte Esterase Urine Trace (Negative); Nitrite Urine Negative (Negative); UMIC TRIGGER UACC YES; Urine Blood Negative (Negative); Urine Ketones Trace mg/dL (Negative); Urine Protein Negative (Neg-Trace)
[2023-03-08 11:04] LABS: Bacteria Urine None Seen (None Seen); Hyaline Casts Urine 0-2 /LPF (0-2); RBC Urine 0-2 /HPF (0-2); Squamous Epithelial Cell Urine 0-2 /HPF (0-2); WBC Urine 0-5 /HPF (0-5)
== END 2023-03-08 10:40 | disposition home or self-care (01) ==
LOC: HO.LNP 10:39
PROVIDERS: Visit Provider Internal Medicine
DX: R31.9 Hematuria, unspecified (principal)
CPT/HCPCS: 81001

== ENCOUNTER 2023-03-19 10:23 | Outpatient (REF) | payer BC, SELFPAY ==
[2023-03-19 10:26] LABS: MANUAL DIFF FLAG NO
[2023-03-19 10:30] LABS: Basophils Absolute Auto 0.1 X10*3/uL (0.0-0.2); Basophils Percent Auto 1.2 % (0-2); Eosinophils Absolute Auto 0.2 X10*3/uL (0.0-0.4); Eosinophils Percent Auto 3.6 % (0-4); Hematocrit 43.7 % (42.0-52.0); Hemoglobin 14.9 g/dl (14.0-18.0); Imm Gran Abs Auto 0.02 X10*3/uL (0.00-0.03); Imm Gran Pct Auto 0.3 % (0.0-0.4); Lymphocytes Absolute Auto 1.8 X10*3/uL (1.2-4.9); Lymphocytes Percent Auto 27.5 % (20-40); Mean Corpuscular HGB Conc 34.1 g/dl (31.0-36.0); Mean Corpuscular Hemoglobin 31.6 pg (27.0-33.0); Mean Corpuscular Volume 92.6 fL (80.0-98.0); Mean Platelet Volume 9.5 fL (9.4-12.4); Monocytes Absolute Auto 0.4 X10*3/uL (0.1-1.2); Monocytes Percent Auto 6.4 % (2-11); Neutrophils Absolute Auto 4.1 x10*3/uL (2.0-8.3); Platelet Count 202 X10*3/uL (160-400); Red Blood Count 4.72 X10*6/uL (4.60-5.80); Red Cell Distribution Width 12.8 % (11.0-16.0); White Blood Count 6.7 X10*3/uL (4.8-10.8)
[2023-03-19 10:47] LABS: Alanine Aminotransferase 13 U/L (0-40); Albumin Level 4.5 g/dL (3.5-5.0); Alkaline Phosphatase 64 U/L (39-117); Anion Gap 13 (12-20); Aspartate Amino Transferase 15 U/L (5-37); Bilirubin Total 1.2 mg/dL (0.0-1.0); Blood Urea Nitrogen 18 mg/dL (9-16); Calcium 9.2 mg/dL (8.4-10.2); Carbon Dioxide 26 mmol/L (22-29); Chloride 104 mmol/L (96-108); Cholesterol 205 mg/dL; Estimated Average Glucose 100 mg/dL; Estimated Glomerular Filt Rate > 60; Glucose Fasting 94 mg/dL (60-99); HDL Cholesterol 67 mg/dL; Hemoglobin A1c % 5.1 %; LDL Cholesterol Calculated 121 mg/dl; Potassium 4.1 mmol/L (3.3-5.1); Sodium 139 mmol/L (135-145); Total Protein 6.9 g/dL (6.5-8.0); Triglycerides 88 mg/dL
[2023-03-19 11:14] LABS: PSA,Total (Free>4and<10) 0.94 ng/mL (0.00-4.00)
== END 2023-03-19 10:24 | disposition home or self-care (01) ==
LOC: HO.LNP 10:23
PROVIDERS: PCP Internal Medicine; Visit Provider Internal Medicine
DX: Z00.00 Encounter for general adult medical examination without abnormal findings (principal); Z12.5 Encounter for screening for malignant neoplasm of prostate; R97.20 Elevated prostate specific antigen [PSA]; R73.03 Prediabetes
CPT/HCPCS: 80053; 80061; 83036; 84153; 85025

== ENCOUNTER 2024-03-15 08:41 | Outpatient (REF) | payer BC, SELFPAY ==
--- NOTE | ~2024-03-15 | FL_ITS ---
EXAMINATION: XR FLUOROSCOPY UPPER GI WITH AIR CLINICAL INFORMATION: Reflux, dysphagia COMPARISON: None TECHNIQUE: Fluoroscopic air contrast upper GI examination was performed utilizing standard techniques with thin and thick barium and effervescent granules. Numerous spot images were obtained. FINDINGS: Lateral cine images of the oropharynx and hypopharynx demonstrate normal swallow mechanism with normal epiglottic inversion and soft palate elevation. No tracheal penetration, glottic or subglottic aspiration identified. No nasopharyngeal reflux present. Hypopharyngeal structures appear normal without evidence of mass or diverticulum. There is mild cricopharyngeal achalasia present. Dual and single contrast images of the esophagus demonstrate and normal caliber. There is a granular appearance of the esophageal mucosa with multiple small filling defects in the mid and distal esophagus. There is also felinization of the mid esophageal mucosa. No evidence of strictures. Esophageal peristalsis is mildly disorganized. No evidence of hiatus hernia identified. Significant gastroesophageal reflux is seen up the thoracic inlet. Dual contrast and single contrast images of the stomach demonstrated a normal contour. The gastric rugal folds have a thickened appearance. There are multiple areas of contrast pooling in the fundus and body of the stomach that may represent small superficial aphthous ulcers. In addition, there are a few well-circumscribed filling defects in the body the stomach that could represent gastric polyps or superficial ulcers with surrounding edema. Contrast freely passed into the gastric antrum and duodenal bulb without delay. Single and air-contrast images of the duodenal bulb demonstrate no abnormality. The duodenal sweep has a normal appearance, course, and mucosal fold appearance. The imaged proximal jejunum has a normal fold pattern and caliber. FLUOROSCOPY TIME: 4 minutes 25 seconds Number of Spot Images: 10 Number of Cine: 15 DOSE AREA PRODUCT: 2374 uGy-m2 (microgray-meter squared) FL/FL upper GI w air IMPRESSION: 1. Mild cricopharyngeal achalasia. 2. There is a granular appearance of the esophageal mucosa with multiple small filling defects noted in the mid and distal esophagus. These findings are suggestive of erosive esophagitis. Other etiologies include rasheed or esophageal polyps, however, less likely. Recommend correlation with EGD. 3. Felinization of the mid esophageal mucosa. This is a benign finding that is associated with chronic reflux. 4. Mildly disorganized esophageal peristalsis. 5. Severe gastroesophageal reflux. 6. Thickened gastric rugal folds. In addition there are multiple areas of contrast pooling in the fundus and body the stomach. These findings are suggestive of erosive gastritis. Recommend correlation with EGD. 7. There are a few well-circumscribed filling defects in the body the stomach that could represent gastric polyps or superficial ulcers with surrounding edema. Recommend correlation with EGD. This procedure was performed by Bam Jackson PA-C, and supervised by Dr. Rodriguez
== END 2024-03-15 08:42 | disposition home or self-care (01) ==
LOC: HO.XRAY 08:41
PROVIDERS: PCP Internal Medicine; Visit Provider Internal Medicine
DX: K29.60 Other gastritis without bleeding (principal)
CPT/HCPCS: 74246

== ENCOUNTER → 2024-03-15 08:43 | Outpatient (BNV) | payer BC, SELFPAY | PROVIDERS: PCP Internal Medicine; Visit Provider Physician Assistant Surgical | DX: R13.10 Dysphagia, unspecified (principal); K21.9 Gastro-esophageal reflux disease without esophagitis | CPT/HCPCS: 74246 ==

== ENCOUNTER 2024-03-21 10:52 | Outpatient (REF) | payer BC, SELFPAY ==
[2024-03-21 10:58] LABS: MANUAL DIFF FLAG NO
[2024-03-21 11:23] LABS: Appearance Urine Clear; Color Urine Yellow; Glucose Urine UA Negative (Negative); Leukocyte Esterase Urine Negative (Negative); Nitrite Urine Negative (Negative); Urine Blood Negative (Negative); Urine Ketones Negative (Negative); Urine Protein Negative (Neg-Trace)
[2024-03-21 11:25] LABS: Estimated Average Glucose 105 mg/dL; Hemoglobin A1c % 5.3 % (<6.0)
[2024-03-21 11:30] LABS: Bacteria Urine None Seen (None Seen); Hyaline Casts Urine 0-2 /LPF (0-2); RBC Urine 0-2 /HPF (0-2); Squamous Epithelial Cell Urine 0-2 /HPF (0-2); WBC Urine 0-5 /HPF (0-5)
[2024-03-21 11:34] LABS: Basophils Absolute Auto 0.1 X10*3/uL (0.0-0.2); Basophils Percent Auto 1.3 % (0-2); Eosinophils Absolute Auto 0.2 X10*3/uL (0.0-0.4); Eosinophils Percent Auto 3.2 % (0-4); Hematocrit 41.5 % (42.0-52.0); Hemoglobin 14.1 g/dl (14.0-18.0); Imm Gran Abs Auto 0.01 X10*3/uL (0.00-0.03); Imm Gran Pct Auto 0.2 % (0.0-0.4); Lymphocytes Absolute Auto 1.5 X10*3/uL (1.2-4.9); Lymphocytes Percent Auto 23.9 % (20-40); Mean Corpuscular Hemoglobin 31.7 pg (27.0-33.0); Mean Corpuscular Volume 93.3 fL (80.0-98.0); Mean Platelet Volume 9.4 fL (9.4-12.4); Monocytes Absolute Auto 0.4 X10*3/uL (0.1-1.2); Neutrophils Percent Auto 64.4 % (45-73); Platelet Count 213 X10*3/uL (160-400); Red Blood Count 4.45 X10*6/uL (4.60-5.80); White Blood Count 6.2 X10*3/uL (4.8-10.8)
[2024-03-21 11:45] LABS: Alanine Aminotransferase < 5 U/L (0-40); Albumin Level 4.4 g/dL (3.5-5.0); Alkaline Phosphatase 57 U/L (39-117); Anion Gap 13 (12-20); Aspartate Amino Transferase 11 U/L (5-37); Blood Urea Nitrogen 13 mg/dL (9-16); Calcium 9.4 mg/dL (8.4-10.2); Carbon Dioxide 27 mmol/L (22-29); Chloride 105 mmol/L (96-108); Cholesterol 195 mg/dL (<200); Estimated Glomerular Filt Rate > 60; Glucose Fasting 103 mg/dL (60-99); HDL Cholesterol 57 mg/dL (>40); LDL Cholesterol Calculated 117 mg/dL (<100); Potassium 4.2 mmol/L (3.3-5.1); Sodium 141 mmol/L (135-145); Total Protein 6.6 g/dL (6.5-8.0); Triglycerides 106 mg/dL (<150)
[2024-03-21 11:51] LABS: PSA,Total (Free>4and<10) 1.05 ng/mL (0.00-4.00)
[2024-03-21 11:56] LABS: Creatinine Urine 82.68 mg/dL
== END 2024-03-21 10:53 | disposition home or self-care (01) ==
LOC: HO.LNP 10:52
PROVIDERS: Visit Provider Internal Medicine
DX: Z00.00 Encounter for general adult medical examination without abnormal findings (principal); Z13.6 Encounter for screening for cardiovascular disorders; Z12.5 Encounter for screening for malignant neoplasm of prostate; R73.03 Prediabetes; R97.20 Elevated prostate specific antigen [PSA]
CPT/HCPCS: 80053; 80061; 81001; 82043; 82570; 83036; 84153; 85025

== ENCOUNTER 2024-04-07 08:09 | Outpatient (REF) | payer BC, SELFPAY ==
--- NOTE | ~2024-04-07 | US_ITS ---
EXAMINATION: US ABDOMEN COMPLETE CLINICAL INFORMATION: Abdominal discomfort. COMPARISON: None available. TECHNIQUE: Real-time imaging of the abdominal viscera. FINDINGS: PANCREAS: Normal. ABDOMINAL AORTA: The proximal, mid, and distal segments are normal in caliber. INFERIOR VENA CAVA: Visualized portions are normal. LIVER: Normal. The liver is normal in size. The liver contour is normal. Parenchymal echogenicity is normal. No focal hepatic lesion. There is no intrahepatic biliary duct dilatation seen. GALLBLADDER: Normal. The gallbladder is physiologically distended without evidence of stones, sludge, polyps, wall thickening or pericholecystic fluid. COMMON BILE DUCT: Normal in caliber measuring 1.0 cm in diameter. RIGHT KIDNEY: Normal. No hydronephrosis. No renal calculi or focal parenchymal lesions. The kidney measures 12.8 cm in maximum dimension. LEFT KIDNEY: Simple appearing cyst in the lower pole measuring 1.3 cm for which no routine imaging follow-up is recommended. No hydronephrosis. No renal calculi or focal parenchymal lesions. The kidney measures 12.9 cm in maximum dimension. SPLEEN: Normal. The spleen measures 10.6 cm in maximum dimension. FREE FLUID: None. US/US abdomen complete IMPRESSION: No acute sonographic abnormalities to explain the patient's symptoms. Electronically signed by: Sandy Hart MD 04/13/2024 01:02 PM EDT
== END 2024-04-07 08:10 | disposition home or self-care (01) ==
LOC: HO.US 08:09
PROVIDERS: PCP Internal Medicine; Visit Provider Internal Medicine
DX: R10.84 Generalized abdominal pain (principal)
CPT/HCPCS: 76700

== ENCOUNTER 2024-05-29 12:19 | Day surgery (SDC) | payer BC, SELFPAY ==
[2024-05-25 14:16] VITALS: BMI 21.9
[2024-05-29 13:14] VITALS: BP 121/71; PULSE 68; RESP 16; TEMP 36.7; O2SAT 97; BMI 22.0
[2024-05-29] MEDS: Lactated Ringers 1,000 ML 100 ML IVCONT (13:23)
--- NOTE | 2024-05-29 14:52 | HO.ANESPROP2 ---
HPI - Anesthesia Eval Consult details Narrative: 63 yo male patient for EGD PMFSH Active Problems Active Problems: All Active Problems Cyst of right breast (Acute) Parkinson's Back pain BPH Past Medical History Medical History Subclavian artery aneurysm Parkinson disease Family History Family History Father Lung cancer Mother Breast cancer Family history of problems with anesthesia: No Surgical History Surgical History History of esophagogastroduodenoscopy (EGD) H/O colonoscopy H/O partial thyroidectomy History of back surgery Hx of aortic aneurysm repair History of Problems with Anesthesia: No Social History Social History Alcohol intake: current Alcohol intake frequency: holidays/special occasions only Alcohol type: beer Patient Tobacco Use Status: Never used Tobacco Use of substances other than those prescribed or required for medical reasons: No Are you DNR?: No Advance Directives: No Advance Directives Information Provided: Yes Meds Allergies Allergy/AdvReac Type Severity Reaction Status Date / Time oxycodone [From PERCOCET] Allergy Intermediate VOMITING Verified 05/29/24 13:13 Active Medications: Current Medications Lactated Ringer's (Lr) 1,000 mls @ 100 mls/hr IVCONT .Q10H GREGOR Last Admin: 05/29/24 13:23 Dose: 100 mls/hr Home Medications ?Medication ?Instructions ?Recorded ?Confirmed ?Last Taken ?Type carbidopa 25 mg-levodopa 100 mg 2 tab PO 4-5XD 04/14/22 05/29/24 05/29/24 12:00 History tablet finasteride 5 mg tablet 5 mg PO DAILY 04/14/22 05/29/24 Unknown History gabapentin 300 mg capsule 80,310,900 mg PO DAILY 04/14/22 05/29/24 Unknown History modafinil 100 mg tablet 100 mg PO DAILY 04/14/22 05/29/24 Unknown History sildenafil 100 mg tablet 50 mg PO DAILY PRN Erectile 04/14/22 05/29/24 Unknown History Dysfunction tamsulosin 0.4 mg capsule 0.4 mg PO BID 04/14/22 05/29/24 Unknown History hyoscyamine sulfate 0.375 mg 0.375 mg PO DAILY 05/25/24 05/29/24 Unknown History tablet,extended release,12 hr Exam Height,Weight and Vital Signs: Height 5 ft 11.25 in Weight 72.121 kg Last Vital Signs Temp 98.1 F 05/29/24 13:14 Pulse 68 05/29/24 13:14 Resp 16 05/29/24 13:14 BP 121/71 05/29/24 13:14 Pulse Ox 97 05/29/24 13:14 O2 Del Method Room Air 05/29/24 13:14 Airway Mallampati Class: II TM Dist: >3cm Neck ROM: Full Loose/Missing/Broken Teeth: Yes (Missing some teeth. Denies broken or loose teeth) Heart: RRR Lungs: CTAB Assessment and Plan Assessment Anesthesia Assessment: Anesthesia Plan Discussed and Chart Reviewed Final Anesthetic Review Family History of Problems with Anesthesia: No History of Problems with Anesthesia: No NPO: Yes ASA Class: III Final Preanesthetic Review: No Changes in Pt Med Stat, Meds/Allgs Chart Reviewed, Consent Obtained/Reviewed and Anes Risks/Benef Reviewed Patient Risk: Intermediate Procedure Risk: Low Assessment/Block/Sedation in SS: Assess/Block/Sedation-SS Anesthetic Plan Anesthetic Plan: TIVA Disposition: Standard PACU
[2024-05-29 15:21] VITALS: BP 96/52; PULSE 63; RESP 16; TEMP 36.6; O2SAT 97
--- NOTE | 2024-05-29 15:25 | P.BOP_ITS ---
Brief Operative Note Date of Service: 05/29/24 Pre-op diagnosis: Abdominal pain, abnormal UGI Post-op diagnosis: other (Mild gastritis, Gastric polyps) Procedure: EGD with biopsies Surgeon: Mj Pena MD Anesthesia: MAC Was an Methods Analyst Data Processing used for this Procedure?: No Estimated blood loss (mL): 2.0 Pathology: other (A. Gastric antrum B. Gastric polyps) Condition: stable Disposition: PACU
[2024-05-29 15:35] VITALS: BP 105/66; PULSE 59; RESP 16; TEMP 36.4; O2SAT 98
--- NOTE | 2024-05-30 12:45 | OP_ITS ---
DATE OF SERVICE: 05/29/2024 SURGEON: jM Pena MD INDICATIONS: The patient presents for evaluation of previous abdominal pain and abnormal upper GI series. Full consent has been obtained from him for this, including risks of bleeding and perforation. PREOPERATIVE DIAGNOSIS: POSTOPERATIVE DIAGNOSIS: PROCEDURE PERFORMED: Esophagogastroduodenoscopy with biopsies. ESTIMATED BLOOD LOSS: COMPLICATIONS: ANESTHESIA: Monitored anesthesia care. ASSISTANTS: SPECIMENS: PREOPERATIVE DIAGNOSES: Abdominal pain and abnormal upper gastrointestinal series. POSTOPERATIVE DIAGNOSES: Abdominal pain and abnormal upper gastrointestinal series, hiatal hernia, gastric polyps, minimal gastritis. DESCRIPTION OF PROCEDURE: The patient was placed in the left lateral decubitus position. The Olympus video gastroscope was passed in the posterior oropharynx and upper esophagus under direct vision. The scope was passed slowly into the distal esophagus. The gastroesophageal junction appeared at 39 cm. This appeared normal without any sign of esophagitis nor Quintana esophagus. The scope entered the stomach there was a small hiatal hernia. The scope was advanced to the pylorus and the duodenum was cannulated to the descending portion. The duodenum including the bulb was carefully inspected and appeared normal without mass or ulceration. The scope was withdrawn back to the stomach. The gastric antrum had some mild areas of edema and erythema but no erosions nor ulceration. There was good peristalsis. Biopsies were obtained from the gastric antrum. The scope was retroflexed visualizing the proximal stomach carefully which appeared normal, without any mass or ulceration. However, there were several hyperplastic appearing gastric polyps noted and 2 of these were biopsied. The scope was straightened and withdrawn back to the esophagus. The esophageal mucosa appeared normal. Scope was withdrawn from the patient. He tolerated the procedure well and was returned to the recovery area in stable condition. IMPRESSION: 1. Minimal gastritis. 2. Gastric polyps. 3. Small hiatal hernia. PLAN: The results of the biopsy will be checked. At this point, he reports that he is actually feeling better and is not using any PPI nor hyoscyamine any longer. His previous GI symptoms have resolved. Previous abdominal ultrasound was negative in regard to gallstones or any other pathology. At this point, he will see me in the future on a p.r.n. basis in this regard. Even if H pylori is present in the gastric biopsies, I would not necessarily treat that if he remains asymptomatic. He will be due for a followup colonoscopy in 2027. He will otherwise see me on a p.r.n. basis. He was advised not to use any aspirin and NSAIDs for at least a week. This has been discussed with his . MD ABRAHAM Chávez/REGINA / [id number]
== END 2024-05-29 15:46 | disposition home or self-care (01) ==
PROVIDERS: PCP Internal Medicine; Visit Provider Internal Medicine
PROC: 0DJ08ZZ Inspection of Upper Intestinal Tract, Via Natural or Artificial Opening Endoscopic (ICD-10-PCS; CPT 43235; principal; 2024-05-29 13:40)
DX: R93.3 Abnormal findings on diagnostic imaging of other parts of digestive tract (principal); R10.84 Generalized abdominal pain; K29.50 Unspecified chronic gastritis without bleeding; K31.7 Polyp of stomach and duodenum; K44.9 Diaphragmatic hernia without obstruction or gangrene; K58.0 Irritable bowel syndrome with diarrhea; G20.A1 Parkinson's disease without dyskinesia, without mention of fluctuations; Z79.899 Other long term (current) drug therapy; Z88.5 Allergy status to narcotic agent; Z98.890 Other specified postprocedural states
CPT/HCPCS: 43239; 88305; 88313; 88342; J1100; J1596; J2003; J2704

== ENCOUNTER 2025-03-15 16:14 | Outpatient (REF) | payer BC, SELFPAY ==
--- NOTE | ~2025-03-15 | XR_ITS ---
XR LUMBAR SPINE 4 OR MORE VIEWS Reason: M54.9 LOW BACK PAIN Comparison: Radiographs on May 22, 2019 FINDINGS: Lumbar lordosis is maintained. No subluxation. No compression fracture. Disc space narrowing is more prominent at L4-L5 and L5-S1. Marginal osteophytes at multiple levels. Facet arthropathy is more prominent at L5-S1. Sacroiliac joints are intact. Degenerative changes have mildly progressed from 2019. XR/XR lumbar spine 4V min IMPRESSION: Multilevel degenerative changes, mildly progressed from 2019. Electronically signed by: Sandra Ramirez MD 03/15/2025 05:50 PM EDT
--- OUTSIDE RECORDS SUMMARY | 2025-03-15 16:17 | XMS_ITS | Encounter Summary ---
Author Organization [facility] Address [address] [place] [address] Care Team Providers Care Sneller Hand Name Role Phone Bao Galileo Primary Care Provider [phone] Reason for Visit * Reason Onset Date Comments Change in location of Fluoroscopy 09/16/2022 Encounter Details Date Type Department Care Team (Late st Contact Info) Description 09/16/2022 Telephone [facility] [address] [place] [address] [phone] Telephone Intake, Staff Change in location of Fluoroscopy Social History Tobacco Use Types Packs/Day Years Used Date Smoking Tobacco: Never Smokeless Tobacco: Never Alcohol Use Standard Drinks/Week Comments Yes 5 (1 standard drink = 0.6 oz pur e alcohol) Sex and Gender Information Value Date Recorded Sex Assigned at Male 06/14/2020 7:33 AM EST Legal Sex Male 10:42 AM EDT Gender Identity Male 06/14/2020 7:33 AM EST Sexual Orientation Straight 06/14/2020 7: 33 AM EST documented as of this encounter Miscellaneous Notes * Telephone Encounter - ABRAHAM Harris - 09/17/2022 8:53 AM EST Faxed referral to Kerwin Alonzo [place] at [phone] documented in this encounter Plan of Treatment Upcoming Encounters Date Type Department Care Team (Late st Contact Info) Description 06/18/2025 8:00 AM EST Office Visit [facility] [address] [place] [phone] Mindy German NP [address] [place] [phone] 07/04/2025 8:00 AM EST Office Visit [facility] [address] [place] [phone] Mindy German NP [address] [place] [phone] 07/18/2025 8:00 AM EST Office Visit [facility] [address] [place] [phone] Mindy German NP [address] [place] [address] 10/18/2025 2:30 PM EDT Procedure visit [facility] [address] [address] Surinder Valenzuela MD [address] [place] [phone] documented as of this encounter Visit Diagnoses Not on filedocumented in this encounter Care Teams Sneller Hand Relationship Specialty Start Date End Date Galileo Gore [address] [place] [address] [place] [address] PCP - General Internal Medicine 02/08/20 documented as of this encounter
--- OUTSIDE RECORDS SUMMARY | 2025-03-15 16:17 | XMS_ITS | Encounter Summary ---
Author Organization [facility] Address [address] [facility] [address] [place] [phone] Phone Care Team Providers Care Sort Line Name Role Phone Galileo Gore MD Primary Care Provider Encounter Details Date Type Department Care Team (Late st Contact Info) Description 11/10/2022 Procedure Pass [facility] Cardiac US [address] [place] [address] Social History Tobacco Use Types Packs/Day Years Used Date Smoking Tobacco: Never Smokeless Tobacco: Never Sex and Gender Information Value Date Recorded Sex Assigned at Not on file Legal Sex Male 5:04 PM EST Gender Identity Not on file Sexual Orientation Not on file documented as of this encounter Plan of Treatment Upcoming Encounters Date Type Department Care Team (Latest Contact Info) Description 05/22/2024 Procedure Pass [facility] - MRI [address] [facility], 6th [place] [address] 09/11/2024 Procedure Pass [facility] MRI, Lunder [address] [facility], 4th [place] [address] 04/20/2025 11:45 AM EDT Pre-Admission Testing [facility] Pre-Procedure Evaluation Department Please [place] [phone] [facility] Admitting, Provider 05/04/2025 Procedure Pass [facility] PERIOPERATIVE DEPT [address] [place] [phone] 05/04/2025 7:00 AM EDT Appointment [facility] MRI, Lunder [address] [facility], 4th [place] [address] Mj Young MD, PhD [address] [place] [phone] [email or web address] 05/04/2025 7:45 AM EDT Hospital Encounter [facility] PERIOPERATIVE DEPT [address] [place] [address] Mj Young MD, PhD [address] [place] [phone] [email or web address] 05/04/2025 7:45 AM EDT - 05/04/2025 2:42 PM EDT Surgery [facility] PERIOPERATIVE DEPT [address] [place] [phone] Mj Young MD, PhD [address] [place] [phone] [email or web address] INSERTION STIMULATOR DEEP BRAIN 05/10/2025 Procedure Pass [facility] Periop Dept [address] [place] [address] 05/10/2025 Procedure Pass [facility] Periop Dept [address] [place] [address] 05/11/2025 Procedure Pass [facility] PERIOPERATIVE DEPT [address] [place] [phone] 05/11/2025 11:24 AM EDT Hospital Encounter [facility] PERIOPERATIVE DEPT [address] [place] [phone] Mj Young MD, PhD [address] [place] [phone] [email or web address] 05/11/2025 11:24 AM EDT - 05/11/2025 1:46 PM EDT Surgery [facility] PERIOPERATIVE DEPT [address] [place] [address] Mj Young MD, PhD [address] [facility] [address] [place] [phone] [email or web address] PLACEMENT PULSE GENERATOR INFRACLAVICULAR 11/05/2025 9:45 AM EDT Appointment [facility] - MRI [address] [facility], 6th [place] [address] Keri Smith, RIVET THROWER [address] [place] [phone] [email or web address] 11/05/2025 1:00 PM EDT Office Visit [facility] Cardiovascular Medicine [address] [place] [address], 5th Floor, [address] [place] [address] Keri Smith, RIVET THROWER [address] [place] [phone] [email or web address] Scheduled Procedures Name Priority Associated Diagnoses Date/Ti me INSERTION STIMULATOR DEEP BRAIN Parkinson's disease with dyskinesia and fluctuating manifestations 05/04/2025 7:45 AM EDT MODIFIER MRI Parkinson's disease with dyskinesia and fluctuating manifestations 05/04/2025 7:45 AM EDT PLACEMENT PULSE GENERATOR INFRACLAVICULAR Parkinson's disease, unspecified whether dyskinesia present, unspecified whether manifestations fluctuate 05/11/2025 11:24 AM EDT documented as of this encounter Visit Diagnoses Not on filedocumented in this encounter Care Teams Sort Line Relationship Specialty Start Date End Date Galileo Gore MD [address] [place] [address] [place] [address] PCP - General 01/30/14 documented as of this encounter Additional Source Comments The information contained in this document represents components of the legal health record. It is not the complete legal health record.[facility]
--- OUTSIDE RECORDS SUMMARY | 2025-03-15 16:17 | XMS_ITS | Patient Health Record ---
Author Organization Galileo Gore MD Address [address] [place], [place] [id number] Care Team Providers Care Research Development Director Name Role Phone Galileo Gore Primary Care Provider [phone] Allergies No Known Allergies Results Component Value Reference Range Notes Complete Blood Count Auto Di ff Reviewed date:03/21/2024 12:14:38 PM Interpretation: Performing Lab:[facility], [address] [place] [phone] Notes/Report: White Blood Count 6.2 4.8-10.8 X10*3/uL Red Blood Count 4.45 4.60-5.80 X10*6/uL Hemoglobin 14.1 14.0-18.0 g/dl Hematocrit 41.5 42.0-52.0 % Mean Corpuscular Volume 93.3 80.0-98.0 fL Mean Corpuscular Hemoglobin 31.7 27.0-33.0 pg Mean Corpuscular HGB Conc 34.0 31.0-36.0 g/dl Red Cell Distribution Width 13.0 11.0-16.0 % Platelet Count 213 160-400 X10*3/uL Mean Platelet Volume 9.4 9.4-12.4 fL Neutrophils Percent Auto 64.4 45-73 % Imm Gran Pct Auto 0.2 0.0-0.4 % Lymphocytes Percent Auto 23.9 20-40 % Monocytes Percent Auto 7.0 2-11 % Eosinophils Percent Auto 3.2 0-4 % Basophils Percent Auto 1.3 0-2 % NRBC Pct Auto 0.0 0.0-0.2 /100WBC Neutrophils Absolute Auto 4.0 2.0-8.3 x10*3/uL Imm Gran Abs Auto 0.01 0.00-0.03 X10*3/uL Lymphocytes Absolute Auto 1.5 1.2-4.9 X10*3/uL Monocytes Absolute Auto 0.4 0.1-1.2 X10*3/uL Eosinophils Absolute Auto 0.2 0.0-0.4 X10*3/uL Basophils Absolute Auto 0.1 0.0-0.2 X10*3/uL NRBC Abs Auto 0.000 0.0-0.012 X10*3/uL Comprehensive [place]. Panel Fa st Reviewed date:03/21/2024 12:15:24 PM Interpretation: Performing Lab:[facility], [address] [place] [phone] Notes/Report: Sodium 141 135-145 mmol/L Potassium 4.2 3.3-5.1 mmol/L Chloride 105 96-108 mmol/L Carbon Dioxide 27 22-29 mmol/L Anion Gap 13 12-20 Blood Urea Nitrogen 13 9-16 mg/dL Creatinine 1.13 0.5-1.4 mg/dL Estimated Glomerular Filt Rate > 60 NOTE: For -Dutch individuals, multiply the result by 1.210. Chronic Kidney Disease: Estimated GFR < 60 mL/min/1.73m2 Severe Kidney Disease: Estimated GFR < 15 mL/min/1.73m2 Glucose Fasting 103 60-99 mg/dL A fasting glucose from 100-125 mg/dl is considered impaired (pre-diabetes). Calcium 9.4 8.4-10.2 mg/dL Bilirubin Total 1.0 0.0-1.0 mg/dL Aspartate Amino Transferase 11 5-37 U/L Alanine Aminotransferase < 5 0-40 U/L Total Protein 6.6 6.5-8.0 g/dL Albumin Level 4.4 3.5-5.0 g/dL Alkaline Phosphatase 57 39-117 U/L Lipid Panel Reviewed date:03/21/2024 11:58:45 AM Interpretation: Performing Lab:[facility], [address] [place] [phone] Notes/Report: Triglycerides 106 <150 mg/dL Desirable Triglyceride: less than 150 mg/dL Borderline High Triglyceride 150-199 mg/dL High Triglyceride: 200-499 mg/dL Very High Triglyceride: greater than or equal to 5OO mg/dL Cholesterol 195 <200 mg/dL Desirable Cholesterol: less than 200 mg/dL Borderline High Cholesterol: 200-239 mg/dL High Cholesterol: greater than 239 mg/dL LDL Cholesterol Calculated 117 <100 mg/dL Desirable LDL: less than 100 mg/dL Near Optimal/Above Optimal LDL: 110-129 mg/dL Borderline High LDL: 130-159 mg/dL High LDL: 160-189 mg/dL Very High LDL: greater than or equal to 190 mg/dL HDL Cholesterol 57 >40 mg/dL Desirable HDL: greater than 40 mg/dL Note: This HDL assay may give artificially low results in patients with liver disease. PSA,Total (Free>4and<10) Reviewed date:03/21/2024 11:58:03 AM Interpretation: Performing Lab:[facility], [address] [place] [phone] Notes/Report: PSA,Total (Free>4and<10) 1.05 0.00-4.00 ng/mL A Free PSA was not performed: The percentage of Free PSA can be used to enhance the differentiation of prostate cancer from benign prostatic disease in subjects whose PSA levels are between 4.0 and 10.0 ng/mL. For subjects whose PSA levels are below 4.0 or above 10.0 ng/mL, the risk of prostate cancer is determined on the basis of the PSA alone. Therefore the % Free PSA is recommended only for those subjects whose PSA levels are between 4.0 and 10.0 ng/mL. PSA methodology: Marin Alinity i Chemiluminescent Microparticle Immunoassay (CMIA) Microalbumin, Random Reviewed date:03/21/2024 12:13:50 PM Interpretation: Performing Lab:[facility], [address] [place] [phone] Notes/Report: Creatinine Urine 82.68 Microalbumin Urine 5.0 Microalbum/Creatinine Ratio Ur 6.0 <30 ug/mg cr Albumin/Creatinine Ratio Reference Ranges: Normal: < 30 ug/mg creatinine Microalbuminuria: 30 - 300 ug/mg creatinine Clinical Albuminuria: > 300 ug/mg creatinine Hemoglobin A1c Reviewed date:03/21/2024 11:58:23 AM Interpretation: Performing Lab:[facility], [address] [place] [phone] Notes/Report: Hemoglobin A1c % 5.3 <6.0 % Hemoglobin A1C Reference Range Adults: 4.8 - 6.0 % Non diabetic: < 6.0 % Goal: < 7.0 % Additional Action Suggested: > 8.0 % Note: Hemoglobin A1c results are invalid for patients with abnormal amounts of HbF. Blood transfusions may impact the HbA1c concentration in the patient sample. Estimated Average Glucose 105 eAG = Estimated average glucose which is %A1C expressed as average glucose, using the formula of the L2D-Ptffcny Average Glucose study (ADAG), Diabetes Care, Vol.31,#8, Mar. 2007 UA ClnCatch+Micro w/rflx Cul t Reviewed date:03/21/2024 12:15:07 PM Interpretation: Performing Lab:[facility], [address] [place] [phone] Notes/Report: Urine, Clean Catch Color Urine Yellow Appearance Urine Clear PH 7.0 5.0-9.0 Glucose Urine UA Negative Negative mg/dL Urine Blood Negative Negative Specific [place] - Urine 1.010 1.005-1.025 Urine Protein Negative Neg-Trace mg/dL Urine Ketones Negative Negative mg/dL Nitrite Urine Negative Negative Leukocyte Esterase Urine Negative Negative RBC Urine 0-2 0-2 /HPF WBC Urine 0-5 0-5 /HPF Squamous Epithelial Cell Urine 0-2 0-2 /HPF Bacteria Urine None Seen None Seen Hyaline Casts Urine 0-2 0-2 /LPF FL upper GI w air Reviewed date:03/19/2024 06:26:47 PM Interpretation: Performing Lab: Notes/Report: [address] [address] Fluoroscopy Report Signed Patient: Wellington Daniel MR#: [id number] 7 : 1960 Acct:[id number] Age/Sex: 63 / M ADM Date: 03/15/24 Loc: [facility] Attending Dr: Galileo Gore MD Ordering Physician: Galileo Gore MD Date of Service: 03/15/24 Procedure(s): FL upper GI w air Accession Number(s): [id number] cc: Galileo Gore MD EXAMINATION: XR FLUOROSCOPY UPPER GI WITH AIR CLINICAL INFORMATION: Reflux, dysphagia COMPARISON: None TECHNIQUE: Fluoroscopic air contrast upper GI examination was performed utilizing standard techniques with thin and thick barium and effervescent granules. Numerous spot images were obtained. FINDINGS: Lateral cine images of the oropharynx and hypopharynx demonstrate normal swallow mechanism with normal epiglottic inversion and soft palate elevation. No tracheal penetration, glottic or subglottic aspiration identified. No nasopharyngeal reflux present. Hypopharyngeal structures appear normal without evidence of mass or diverticulum. There is mild cricopharyngeal achalasia present. Dual and single contrast images of the esophagus demonstrate and normal caliber. There is a granular appearance of the esophageal mucosa with multiple small filling defects in the mid and distal esophagus. There is also felinization of the mid esophageal mucosa. No evidence of strictures. Esophageal peristalsis is mildly disorganized. No evidence of hiatus hernia identified. Significant gastroesophageal reflux is seen up the thoracic inlet. Dual contrast and single contrast images of the stomach demonstrated a normal contour. The gastric rugal folds have a thickened appearance. There are multiple areas of contrast pooling in the fundus and body of the stomach that may represent small superficial aphthous ulcers. In addition, there are a few well-circumscribed filling defects in the body the stomach that could represent gastric polyps or superficial ulcers with surrounding edema. Contrast freely passed into the gastric antrum and duodenal bulb without delay. Single and air-contrast images of the duodenal bulb demonstrate no abnormality. The duodenal sweep has a normal appearance, course, and mucosal fold appearance. The imaged proximal jejunum has a normal fold pattern and caliber. FLUOROSCOPY TIME: 4 minutes 25 seconds Number of Spot Images: 10 Number of Cine: 15 DOSE AREA PRODUCT: 2374 uGy-m2 (microgray-meter squared) FL/FL upper GI w air IMPRESSION: 1. Mild cricopharyngeal achalasia. 2. There is a granular appearance of the esophageal mucosa with multiple small filling defects noted in the mid and distal esophagus. These findings are suggestive of erosive esophagitis. Other etiologies include rasheed or esophageal polyps, however, less likely. Recommend correlation with EGD. 3. Felinization of the mid esophageal mucosa. This is a benign finding that is associated with chronic reflux. 4. Mildly disorganized esophageal peristalsis. 5. Severe gastroesophageal reflux. 6. Thickened gastric rugal folds. In addition there are multiple areas of contrast pooling in the fundus and body the stomach. These findings are suggestive of erosive gastritis. Recommend correlation with EGD. 7. There are a few well-circumscribed filling defects in the body the stomach that could represent gastric polyps or superficial ulcers with surrounding edema. Recommend correlation with EGD. This procedure was performed by Bam Jackson PA-C, and supervised by Dr. Rodriguez Dictated By: Bam Jackson Signed By: <Electronically signed by Bam Jackson in [place]> 03/16/24 1700 <Electronically signed by Vincent Rodriguez MD in OV> 03/16/24 170 DD/ 0913 TD/TT: Risk Compliance Analyst: [place] [address] Fluoroscopy Report Signed Patient: Wellington Daniel MR#: [id number] 7 : 1960 Acct:[id number] Age/Sex: 63 / M ADM Date: 03/15/24 Loc: [facility] Attending Dr: Galileo Gore MD Ordering Physician: Galileo Gore MD Date of Service: 03/15/24 Procedure(s): FL upp er GI w air Accession Number(s): [id number] cc: Galileo Gore MD EXAMINATION: XR FLUOROSCOPY UPPER GI WITH AIR CLINICAL INFORMATION: Reflux, dysphagia COMPARISON: None TECHNIQUE: Fluoroscopic air contrast upper GI examination was performed utilizing standard techniques with thin and thick barium and effervescent granules. Numerous s pot images were obtained. FINDINGS: Lateral cine images of the oropharynx and hypopharynx demonstrate normal swallow mecha nism with normal epiglottic inversion and soft palate elevation. No tracheal penetration, glottic or subglottic aspiration identifie d. No nasopharyngeal reflux present. Hypopharyngeal structures appear no rmal without evidence of mass or diverticulum. There is mild cricopharyngeal achalasia present. Dual and single cont rast images of the esophagus demonstrate and normal caliber. There is a granular appearance of the esophageal mucosa with multiple small filli ng defects in the mid and distal esophagus. There is also felinization of the mid esophageal mucosa. No evidence of strictures. Esophage al peristalsis is mildly disorganized. No evidence of hiatu s hernia identified. Significant gastroesophageal reflux is seen up th e thoracic inlet. Dual contrast and si ngle contrast images of the stomach demonstrated a normal contour. The gastric rugal folds have a thickened appearance. There are multiple a reas of contrast pooling in the fundus and body of the stomach that may represent small superficial aphthous ulcers. In addition, there are a few well-circumscribed filling defects in the body the stomach delfin t could represent gastric polyps or superficial ulcers with surround ing edema. Contrast freely passed into the gastric antrum and duodenal bulb without delay. Single and air-contr ast images of the duodenal bulb demonstrate no abnormality. The duodenal sweep has a normal appearance, course, and mucosal fold appeara nce. The imaged proximal jejunum has a normal fold pattern and caliber. FLUOROSCOPY TIME: 4 minutes 25 seconds Number of Spot Image s: 10 Number of Cine: 15 DOSE AREA PRODUCT: 2374 uGy-m2 (microgray-meter squared) F L/FL upper GI w air IMPRESSION: 1. Mild cricopharyng eal achalasia. 2. There is a granul ar appearance of the esophageal mucosa with multiple small filli ng defects noted in the mid and distal esophagus. These findings are suggestive of erosive esophagitis. Other etiologies include rasheed or esophageal polyps, however, less likely. Recommend correlation with EGD. 3. Felinization of t he mid esophageal mucosa. This is a benign finding that is associated w ith chronic reflux. 4. Mildly disorganiz ed esophageal peristalsis. 5. Severe gastroesophageal reflux. 6. Thickened gastric rugal folds. In addition there are multiple areas of contrast pooling in the fundus and body the stomach. These findings are suggestive of erosive gastritis. Recommend correlation with EGD. 7. There are a few well-circumscribed filling defects in the body the stomach that could represent gastric polyps or superficial ulcers with surrounding edema. Recommend correlation with EGD. This procedure was performed by Bam Jackson PA-C, and supervised by Dr. Rodriguez Dictated By: Shahbaz Jackson Signed By: <Electronically signed by Bam FAJARDO Jackson in [place]> 03/16/24 1700 <Electronically sign ed by Vincent Rodriguez MD in [place]> 03/16/24 170 DD/ 2 TD/TT: Risk Compliance Analyst: US abdomen complete Reviewed date:04/14/2024 08:44:15 AM Interpretation: Performing Lab: Notes/Report: [place] [address] Ultrasound Report Signed Patient: Wellington Daniel MR#: [id number] 7 : 1960 Acct:[id number] Age/Sex: 63 / M ADM Date: 04/07/24 Loc: HO.US Attending Dr: Mj Dubois MD Ordering Physician: Mj Dubois MD Date of Service: 04/07/24 Procedure(s): US abdomen complete Accession Number(s): [id number] cc: Galileo Gore MD; Mj Dubois MD EXAMINATION: US ABDOMEN COMPLETE CLINICAL INFORMATION: Abdominal discomfort. COMPARISON: None available. TECHNIQUE: Real-time imaging of the abdominal viscera. FINDINGS: PANCREAS: Normal. ABDOMINAL AORTA: The proximal, mid, and distal segments are normal in caliber. INFERIOR VENA CAVA: Visualized portions are normal. LIVER: Normal. The liver is normal in size. The liver contour is normal. Parenchymal echogenicity is normal. No focal hepatic lesion. There is no intrahepatic biliary duct dilatation seen. GALLBLADDER: Normal. The gallbladder is physiologically distended without evidence of stones, sludge, polyps, wall thickening or pericholecystic fluid. COMMON BILE DUCT: Normal in caliber measuring 1.0 cm in diameter. RIGHT KIDNEY: Normal. No hydronephrosis. No renal calculi or focal parenchymal lesions. The kidney measures 12.8 cm in maximum dimension. LEFT KIDNEY: Simple appearing cyst in the lower pole measuring 1.3 cm for which no routine imaging follow-up is recommended. No hydronephrosis. No renal calculi or focal parenchymal lesions. The kidney measures 12.9 cm in maximum dimension. SPLEEN: Normal. The spleen measures 10.6 cm in maximum dimension. FREE FLUID: None. US/US abdomen complete IMPRESSION: No acute sonographic abnormalities to explain the patient's symptoms. Electronically signed by: Sandy Hart MD 04/13/2024 01:02 PM EDT Dictated By: Sandy Hart Signed By: <Electronically signed by Sandy Hart in [place]> 04/13/24 1302 DD/ 0822 TD/TT: 04/07/24 0834 Risk Compliance Analyst: [place] [address] Ultrasound Report Signed Patient: Wellington Daniel MR#: [id number] 7 : 1960 Acct:[id number] Age/Sex: 63 / M ADM Date: 04/07/24 Loc: HO.US Attending Dr: Mj Dubois MD Ordering Physician: Mj Dubois MD Date of Service: 04/07/24 Procedure(s): US abd omen complete Accession Number(s): [id number] cc: Galileo Gore MD; Mj Dubois MD EXAMINATION: US ABDOMEN COMPLETE CLINICAL INFORMATION: Abdominal discomfort. COMPARISON: None available. TECHNIQUE: Real-time imaging of the abdominal viscera. FINDINGS: PANCREAS: Normal. ABDOMINAL AORTA: The proximal, mid, and distal segments are normal in caliber. INFERIOR VENA CAVA: Visualized portions are normal. LIVER: Normal. The l iver is normal in size. The liver contour is normal. Parenchymal echogenicity is normal. No focal hepatic lesion. There is no intrahep atic biliary duct dilatation seen. GALLBLADDER: Normal. The gallbladder is physiologically distended without evidence of stones, sludge, polyps, wall thickening or pericholecystic fluid. COMMON BILE DUCT: No rmal in caliber measuring 1.0 cm in diameter. RIGHT KIDNEY: Normal . No hydronephrosis. No renal calculi or focal parenchymal lesions. The kidney measures 12.8 cm in maximum dimension. LEFT KIDNEY: Simple appearing cyst in the lower pole measuring 1.3 cm for which no routine imaging follow-up is recommended. No hydronephrosis. No r enal calculi or focal parenchymal lesions. The kidney measures 12.9 cm in maximum dimension. SPLEEN: Normal. The spleen measures 10.6 cm in maximum dimension. FREE FLUID: None. U S/US abdomen complete IMPRESSION: No acute sonographic abnormalities to explain the patient's symptoms. Electronically eliza d by: Sandy Hart MD 04/13/2024 01:02 PM EDT RP Dictated By: Sandy Hart Signed By: <Electronically signed by Sandy Hart in [place]> 04/13/24 1302 DD/ 0822 TD/TT: 04/07/24 0834 Risk Compliance Analyst: Pathology Reviewed date:06/01/2024 11:45:17 AM Interpretation: Performing Lab:[facility], [address] [place] [phone] Notes/Report: ---- Name: Wellington Daniel Age/Sex: 63/M : 1960 Unit#: [id number] Attend Dr: Mj Dubois MD Re05/29/24 Status : [facility] Location: [facility] Disch: ---- SPEC : [id number] RECD : 05/30/24 STATUS: SOUT RE NUM: [id number] GUILLERMO: 05/29/24-[address] [facility] [address]: Mj Dubois MD ENTERED: 05/30/24- 37 SP TYPE: Surgical OTHR DR: Galileo Gore MD ORDERED: HE Stain/6, Gross Micro L4/2, IHC/2, Special st. 2/2, H. pylori/2, AB/PAS/2 Diagnosis A. Stomach, antrum, biopsy: Antral-type and oxyntic mucosa with mild chronic inactive inflammation; no Helicobacter organisms seen. B. Stomach, polyps: Fundic gland polyps with background mild chronic inactive inflammation; no Helicobacter organisms seen. Clinical History Pre-Op Dx: Abnormal findings on diagnostic imaging of other parts of digestive tract Post-Op Dx: Hiatal hernia, gastric polyps Microscopic Description A, B. Microscopic sections examined. No metaplastic changes are seen, supported by AB/PAS stains (A and B); no Helicobacter organisms are seen, supported by H. pylori immunostain (A and B). Material Received A. Gastric antrum bx B. Gastric polyps Gross Description Received in 2 parts. A. Received in forma ruthie labeled ?gastric antrum biopsy? are 3 fragments of silva-white soft tissue measuring 0.3 -0.4 cm in greatest dimension which are wrapped in lens paper and entirely submitted f or microscopic examination, 3 pieces in cassette A. B. Received in forma ruthie labeled ?gastric polyps? are 2 fragments of silva soft tissue measuring 0.3 and 0. 3 cm in greatest dimension which are wrapped in lens paper and entirely submitted for microscopic examination, 2 pieces in cassette B. [facility] Copies To: Galileo Gore MD [facility] [address] [place] [id number] CONTINUED ON NEXT PAGE ---- Name: Wellington Daniel Age/Sex: 63/M : 1960 Unit#: [id number] Attend Dr: Mj Dubois MD Re05/29/24 Status : [facility] Location: [facility] Disch: ---- SPEC : [id number] REC STATUS: FRANDY VALENCIA NUM: [id number] GUILLERMO: 05/29/[address] [facility] [address]: Mj Dubois MD ENTERED: 05/30/24 37 SP TYPE: Surgical OTHR DR: Galileo Gore MD ORDERED: HE Stain/6, Gross Micro L4/2, IHC/2, Special st. 2/2, H. pylori/2, AB/PAS/2 Copies To: (Continued) Mj Dubois MD [address] [place] [address] ---- Signed (signature on file) Pedro Gomez MD 06/01/24 1014 ---- END OF REPORT Reason For Referral Reason Abnormal UGI series Diagnosis 1 Abnormal UGI series (R93.3) Referral Organization Galileo Gore MD Referring Provider First Name Galileo Referring Provider Last Name Bao Referring Provider Speciality Internal M edicine Referred Provider Mj Dubois Referred Provider Specialty Gastroentero logy General Notes Vonnie Fontana 02:40:48 PM EDT > info faxed , Vonnie Fontana 03/20/2024 01:01:38 PM EDT > was told by offic Dr. Dubois is doing surgeries today. They wll get back to me with an appt , Vonnie Fontana 03/23/2024 10:59:43 AM EDT > ws Dr. Dubois will be looking at referral today , Pita Ornelas 03/23/2024 12:42:14 PM EDT > PATIENT SCHEDULED FOR 04/04/24 AT 840AM, Vonnie Fontana 03/23/2024 12:46:10 PM EDT > patient wa called with above info Referral Priority Routine Referral Appointment Date 04/04/2024 Medications Medication SIG (Take, Route, Frequency, Duration) Notes Start Date End Date Status Melatonin 5 MG 1 tablet in the evening Orally Once a day for 30 day(s) Active Mirtazapine 7.5 MG 1tablets at bedtime Orally Once a day Active Cyclobenzaprine HCl 5 MG 1 tablet at bed time as needed Orally twice a day for 10 days 03/15/2025 Active Finasteride 5 MG 1 tablet Orally Once a day Active Sildenafil Citrate 100 MG TAKE 1/2 TABLE T BY MOUTH ONCE DAILY NEEDED for 60 Active Ambien 5 MG 1 tablet at bedtime Orally Once a day for 10 days 08/28/2019 Not-Taking Tamsulosin HCl 0.4 MG TAKE ONE CAPSULE B Y MOUTH TWICE A DAY for 180 Active Gabapentin 300 MG 2 capsules once a da y for 90 days Active Carbidopa-Levodopa 25-100 MG 2 tablet as needed Orally 5 times a day Active Omeprazole 40 MG 1 capsule 30 minutes before morning meal Orally Once a day Active Carbidopa-Levodopa ER 50-200 MG 1 tablet as needed Orally hs Active Immunizations Vaccine Route Administration Date Status Comme nts Flu Vaccine IM Intramuscular 06/16/2011 Administered Flu Vaccine IM Intramuscular 07/21/2012 Administered Flu Vaccine IM Intramuscular 08/28/2013 Administered Flu Vaccine IM Intramuscular 05/25/2014 Administered zFluzone Quadrivalent IM Intramuscular 10/08/2015 Administ ered Fluarix Quadrivalent IM Intramuscular 04/07/2016 Administe red Fluarix Quadrivalent IM Intramuscular 05/03/2017 Administe red PPSV23 (Pnemovax) IM Intramuscular 11/16/2017 Administered Fluarix Quadrivalent IM Intramuscular 05/17/2018 Administe red Fluarix Quadrivalent IM Intramuscular 07/07/2019 Administe red Fluarix Quadrivalent IM Intramuscular 04/17/2020 Administshoaib red Prevnar 13 IM Intramuscular 05/30/2020 Administered Covid Vaccine Unknown 08/21/2020 Administered Covid Vaccine Unknown 09/11/2020 Administered Fluarix Quadrivalent IM Intramuscular 04/24/2021 Administshoaib red SARS-COV-2 Pfizer Unknown 08/27/2020 Administered SARS-COV-2 Pfizer Unknown 09/11/2020 Administered SARS-COV-2 Pfizer Unknown 05/16/2021 Administered Fluarix Quadrivalent IM Intramuscular 05/04/2022 Administe red Fluarix Quadrivalent IM Intramuscular 04/09/2023 Administshoaib red Fluarix Quadrivalent - 150 IM Intramuscular 06/16/2024 Adm inistered Social History Tobacco Use: Social History Observation Description Date Details (start date - stop date) Never Smoker NA - NA Tobacco Use/Smoking Question Answer Notes Patient is a nonsmoker Additional Findings: Tobacco Non-User Cu rrent non-smoker, currently using no form of tobacco Alcohol Screen Question Answer Notes Did you have a drink contain ing alcohol in the past year? Yes How often did you have a dri nk containing alcohol in the past year? Monthly or less (1 point) How many drinks did you have on a typical day when you were drinking in the past year? 1 or 2 drinks (0 point) How often did you have 6 or more drinks on one occasion in the past year? Never (0 point) Points 1 Interpretation Negative Problems Problem Type SNOMED Code ICD Code Onset Dates Problem Status W/U Status Risk Notes Problem 839083447 Neuropathy (G62.9) Active confirmed Problem 316609668 Irritable bowel syndrome with diarrhea (K58.0) Active confirmed Problem 89917321 Prostatism (N40.0) Active confirmed Problem 0247146 Primary insomnia (F51.01) Active confirmed Problem 14870210 Diplopia (H53.2) Active confirmed Problem 293310045 Tubular adenoma of colon (D12.6) Active confirmed Problem 3586719 Prediabetes (R73.09) Active confirmed Problem 331408691 Cervical disc disease (M50.90) Active confirmed Problem 137332334 PAC (premature atrial contraction) (I49.1) Active confirmed Problem 37412569 Sciatica of left side (M54.32) Active confirmed Problem 32119918 Constipation, unspecified constipation type (K59.00) Active confirmed Problem Dysthymia (F34.1) Active confirmed Problem 70053882965248 Pharyngeal dysphagia (R13.13) Active confirmed Problem 23804596 Reflux gastritis (K29.60) Active confirmed Problem 732430802 Thoracic aneurys m without mention of rupture (I71.2) Active confirmed Problem 37805336 VSD (ventricular septal defect) (Q21.0) Active confirmed Problem Spasm of bladder (516741276) Bladder spasms (N32.89) Active confirmed Problem 987842083 Elevated PSA (R97.20) Active confirmed Problem 32040866 Parkinson's disease without dyskinesia, unspecified whether manifestations fluctuate (G20.A1) Active confirmed Vital Signs Blood pressure diastolic 60 mm Hg 03/15/2025 june ght is down 2 pounds since 09-14-24 Height 70 in 03/15/2025 weight is down 2 pounds since 09-14-24 Blood pressure systolic 114 mm Hg 03/15/2025 weig ht is down 2 pounds since 09-14-24 Weight 166 lbs 03/15/2025 weight is down 2 pounds since 09-14-24 BMI 23.82 kg/m2 03/15/2025 weight is down 2 pounds since 09-14-24 Encounters Encounter Location Date Provider Diagnosis Galileo Gore MD [address] [place] [address] [id number] 03/21/2024 Galileo Gore Blood tests for routine general physical examination Z00.00 ; Prediabetes R73.09 and Elevated PSA R97.20 Galileo Gore MD [address] [place] [address] [id number] 03/15/2025 Galileo Gore Back pain M54.9 Galileo Gore MD [address] [place] [address] [id number] 03/17/2024 Galileo Gore Abnormal UGI series R93.3 and Chronic constipation K59.09 Galileo Gore MD [address] [place] [address] Drive [address] [place] [address] [id number] 03/28/2024 Galileo Gore Irritable bowel syndrome with diarrhea K58.0 ; Annual physical exam Z00.00 ; Prediabetes R73.09 ; Parkinson disease G20 ; Elevated PSA R97.20 ; Dysthymia F34.1 ; Reflux gastritis K29.60 ; Depression screening Z13.31 and Parkinson's disease, unspecified whether dyskinesia present, unspecified whether manifestations fluctuate G20.A1 Galileo Gore MD [address] [place] [address] [id number] 04/18/2024 Galileo Gore Irritable bowel syndrome with diarrhea K58.0 ; Reflux gastritis K29.60 and Parkinson's disease without dyskinesia, unspecified whether manifestations fluctuate G20.A1 Galileo Gore MD [address] [place] [address] [id number] 06/16/2024 Galileo Gore Parkinson's disease without dyskinesia, unspecified whether manifestations fluctuate G20.A1 ; Reflux gastritis K29.60 and Encounter for immunization Z23 Galileo Gore MD [address] [place] [address] [id number] 09/14/2024 Galileo Gore Irritable bowel syndrome with diarrhea K58.0 ; Parkinson's disease without dyskinesia, unspecified whether manifestations fluctuate G20.A1 and Injury of flexor tendon of right hand, initial encounter S66.801A Galileo Gore MD [address] [place] [address] [id number] 03/17/2024 Galileo Gore Assessments Encounter Date Diagnosis (ICD Code) Assessment Notes Treatment Notes Treatment Clinical Notes Section Notes 03/21/2024 Blood tests for routine general physical examination (ICD-10 - Z00.00) 03/21/2024 Prediabetes (ICD-10 - R73.09) 03/15/2025 Back pain (ICD-10 - M54.9) patient verbalized understanding of medication and directins for use 03/17/2024 Abnormal UGI series (ICD-10 - R93.3) get referral to dr dubois 03/17/2024 Chronic constipation (ICD-10 - K59.09) try doubling the miralax and ducoloax 03/28/2024 Irritable bowel syndrome with diarrhea (ICD-10 - K58.0) patient verbalized understanding of medication and directions for use 03/28/2024 Annual physical exam (ICD-10 - Z00.00) labs reviewed and discussed with patient 04/18/2024 Irritable bowel syndrome with diarrhea (ICD-10 - K58.0) is taking the hyosciamine with help 04/18/2024 Reflux gastritis (ICD-10 - K29.60) is doing better and is getting endoscopy 06/16/2024 Parkinson's disease without dyskinesia, unspecified whether manifestations fluctuate (ICD-10 - G20.A1) doing well at present. is on an antideppresent, will continue current regiment 06/16/2024 Reflux gastritis (ICD-10 - K29.60) doing well on the lactose free diet, will continue current regiment 09/14/2024 Irritable bowel syndrome with diarrhea (ICD-10 - K58.0) he stopped the hyoscyamine as it did not seem to make any difference. / see if you can get results of manometry at gastro clinic at [facility] 09/14/2024 Parkinson's disease without dyskinesia, unspecified whether manifestations fluctuate (ICD-10 - G20.A1) has planned treatment at [facility] 03/21/2024 Elevated PSA (ICD-10 - R97.20) 03/28/2024 Prediabetes (ICD-10 - R73.09) good a1c, will contnue to monitor 04/18/2024 Parkinson's disease without dyskinesia, unspecified whether manifestations fluctuate (ICD-10 - G20.A1) is going for evalution beginning of 06/16/2024 Encounter for immunization (ICD-10 - Z23) flu vaccine administered 09/14/2024 Injury of flexor tendon of right hand, initial encounter (ICD-10 - S66.801A) if not better in 2 weeks to call and will send to hand surgeon 03/28/2024 Parkinson disease (ICD-10 - G20) is doing ablout the same, will continue current regiment 03/28/2024 Elevated PSA (ICD-10 - R97.20) will contiue to monitor 03/28/2024 Dysthymia (ICD-10 - F34.1) stable, will continue current regiment 03/28/2024 Reflux gastritis (ICD-10 - K29.60) still an issue, will contiue curent regiment 03/28/2024 Depression screening (ICD-10 - Z13.31) 03/28/2024 Parkinson's disease, unspecified whether dyskinesia present, unspecified whether manifestations fluctuate (ICD-10 - G20.A1) Plan Of Treatment Pending Test Test Name Order Date Electrocardiogram (EKG) 10/18/2015 Electrocardiogram (EKG) 06/23/2011 XR GI SERIES 02/01/2024 XR GI SERIES 03/14/2024 US breast RT limited 03/24/2022 XR lumbar spine 4V min 03/15/2025 Next Appt Details Provider Name:Galileolucio Mccray ier, 03/22/2025 07:30:00 AM, [address] [place] [address], [address], [place], [place], [phone], Provider Name:Galileo Mccray ier, 04/12/2025 09:30:00 AM, [address] [place] [address], [address], [place], [place], [phone], Insurance Providers Payer Name Payer Address Payer Phone Subscriber Number Group Number Insured Name Patient Relationship to Insured Coverage Start Date Coverage End Date [facility] [address] [place], [place] [phone] [id number] Wellington Daniel Self - patient is the insured Medical (General) History Medical History History ICD Code colonoscopy 09/2011 due in 5 years; colonoscopy done 06/30/[address] Dubois - repeat 5 years(2021) Colonoscopy 10/21/22 repeat 5 years Parkinson disease G20 Parkinson disease
--- OUTSIDE RECORDS SUMMARY | 2025-03-15 16:17 | XMS_ITS | Patient Health Record ---
Author Organization [facility] Address [address] [place] [address] Care Team Providers Care Stamp Redemption Clerk Name Role Phone Bao ROSEN, Galileo Primary Care Provider Mj Bui [phone] Allergies Allergen (clinical drug ingredient) Drug/Non Drug Allergy documented on EMR Reaction Allergy Type Onset Date Status acetaminophen / oxycodone Percocet N/V Drug Allergy Active Results Component Value Reference Range Notes US abdomen complete Reviewed date:05/21/2024 08:15:11 PM Interpretation: Performing Lab: Notes/Report: [address] [address] Ultrasound Report Signed Patient: Krystal Daniel MR#: [id number] 7 : 1960 Acct:[id number] Age/Sex: 63 / M ADM Date: 04/07/24 Loc: HO.US Attending Dr: Mj Pena MD Ordering Physician: Mj Pena MD Date of Service: 04/07/24 Procedure(s): US abdomen complete Accession Number(s): [id number] cc: Galileo Gore MD; Mj Pena MD EXAMINATION: US ABDOMEN COMPLETE CLINICAL INFORMATION: [...] 04/13/24 1302 DD/ 0822 TD/TT: 04/07/24 0834 Qa Lead: Pathology Reviewed date:12/30/2024 04:19:45 PM Interpretation: Performing Lab:[facility], [address] [place] [phone] Notes/Report: Reason For Referral No Information Medications Medication SIG (Take, Route, Frequency, Duration) Notes Start Date End Date Status Gabapentin 300 MG Oral for 90 Active Finasteride 5 MG Oral for 90 A ctive Tamsulosin HCl Activ e Aspirin 81 MG 1 tablet Orally Once a day Not-Taking Omeprazole 40 MG 1 Orally Once a day every morning for 30 days 01/04/2025 Active Latanoprost 0.005 % INSTILL 1 DROP INTO BOTH EYES DAILY Ophthalmic for 60 Active Hyoscyamine Sulfate ER 0.375 MG TAKE ONE TABLET BY MOUTH EVERY DAY Oral for 30 Active Omeprazole 40 MG 1 capsule 30 minutes before morning meal Orally Once a day for 30 day(s) 03/23/2024 Active Modafinil 100 MG TAKE ONE TABLET BY MOUTH EVERY DAY Oral for 90 Active Sildenafil Citrate 100 MG TAKE 1/2 TABLE T BY MOUTH ONCE DAILY NEEDED. Oral for 60 Active Carbidopa-Levodopa 25-100 MG Oral for 90 Active Immunizations Vaccine Route Administration Date Status Comme nts Influenza Unknown 06/16/2022 Administered Social History Alcohol Screen Question Answer Notes Did you have a drink contain ing alcohol in the past year? Yes How often did you have a dri nk containing alcohol in the past year? 2 to 3 times a week (3 points) How many drinks did you have on a typical day when you were drinking in the past year? 1 or 2 drinks (0 point) How often did you have 6 or more drinks on one occasion in the past year? Never (0 point) Points 3 Interpretation Negative Section Notes: He does not smoke nor use an y significant amounts of alcohol He does not smoke nor use an y significant amounts of alcohol He does not smoke nor use an y significant amounts of alcohol He does not smoke nor use an y significant amounts of alcohol Problems Problem Type SNOMED Code ICD Code Onset Dates Problem Status W/U Status Risk Notes Problem 820682829 Encounter for screening for malignant neoplasm of colon (Z12.11) Active confirmed Problem 418673869 History of adenomatous polyp of colon (Z86.010) Active confirmed Problem History of polyp of colon (situation) (224947978) Personal history of colonic polyps (Z86.010) Active confirmed Problem Diverticular disease of colon (081947741) Diverticulosis of large intestine without perforation or abscess without bleeding (K57.30) Active confirmed Problem 620540398 Preprocedural examination (Z01.818) Active confirmed Problem Abnormal upper gastrointestinal barium series (R93.3) Active confirmed Problem Benign neoplasm of stomach (18071411) Gastric polyps (K31.7) Active confirmed Problem Gastritis (1677441) Gastritis (K29.70) Active confirmed Problem Irritable bowel syndrome (59059736) Irritable bowel syndrome with both constipation and diarrhea (K58.0) Active confirmed Problem Generalized abdominal pain (490320045) Abdominal discomfort, generalized (R10.84) Active confirmed Vital Signs Blood pressure diastolic 00 mm Hg 04/04/2024 Height 71.25 in 04/04/2024 Blood pressure systolic 000 mm Hg 04/04/2024 Weight 158 lbs 04/04/2024 BMI 21.88 kg/m2 04/04/2024 Encounters Encounter Location Date Provider Diagnosis [facility] [address] [place] [id number] 05/29/2024 Mj Pena Hiatal hernia K44.9 ; Gastritis K29.70 ; Gastric polyps K31.7 ; Abnormal finding on GI tract imaging R93.3 and Abdominal pain R10.9 [facility] [address] [place] [phone] 04/04/2024 Mj Pena Abdominal discomfort , generalized R10.84 ; Abnormal upper gastrointestinal barium series R93.3 and Irritable bowel syndrome with both constipation and diarrhea K58.0 [facility] [address] [place] [phone] 03/23/2024 Mj Pena [facility] [address] [place] [phone] 04/13/2024 Mj Pena [facility] [address] [place] [phone] 05/08/2024 Mj Pena [facility] [address] [place] [phone] 05/19/2024 Mj Pena [facility] [address] [place] [phone] 05/23/2024 Mj Pena [facility] [address] [place] [phone] 01/02/2025 Mj Pena Assessments Encounter Date Diagnosis (ICD Code) Assessment Notes Treatment Notes Treatment Clinical Notes Section Notes 05/29/2024 Hiatal hernia (ICD-10 - K44.9) 05/29/2024 Gastritis (ICD-10 - K29.70) 04/04/2024 Abnormal upper gastrointestinal barium series (ICD-10 - R93.3) Overall, Krystal appears well and does not seem to have any worrisome ongoing GI process at the present time. We did review his negative colonoscopy last year and I recommended a followup colonoscopy in 2027 for further screening purposes. In regard to his current symptoms this does seem like a combination of some irritable bowel syndrome, some possible effect of the GI tract by his underlying Parkinson's disease, and some component of gastritis and/or reflux. Given the abnormal upper GI series I did recommend an upper endoscopy for evaluation. Full consent is obtained for this, including risks of bleeding and perforation. I did advise him that he could continue omeprazole if it is giving him good symptomatic improvement, or he could try to stop it to see how he does without it and if indeed it was truly helping him. In regard to his overall GI complaints I did recommend he try using lactose free dairy products to rule out any component of lactose intolerance contributing to his symptoms. I also recommended adding some daily Metamucil to his bowel regimen to see if that might make his bowel movements were regular. I did advise him to continue his hyoscyamine. I did advise him to adjust his MiraLax if he begins having some looser bowel movements. I will obtain duodenal biopsies to rule out celiac disease as a contributing factor to his symptoms as well. I also recommend an abdominal ultrasound to rule out any component of gallstones that might be contributing to his generalized abdominal discomfort. I did advise Krystal to contact me prior to the endoscopy if he begins having any worsening symptoms or has questions I can be of assistance with. Krystal was comfortable with this plan. Thank you again for allowing me to participate in Krystal's care. I shall continue to keep you advised of his progress. 04/04/2024 Abdominal discomfort, generalized (ICD-10 - R10.84) Try lactose-free dairy products Add some Metamucil once a day with a lot of fluids daily to help regulate the BM's Continue the Hyoscyamine once a day You can continue the omeprazole or stop it to see how you do without it Overall, Krystal appears well and does not seem to have any worrisome ongoing GI process at the present time. We did review his negative colonoscopy last year and I recommended a followup colonoscopy in 2027 for further screening purposes. In regard to his current symptoms this does seem like a combination of some irritable bowel syndrome, some possible effect of the GI tract by his underlying Parkinson's disease, and some component of gastritis and/or reflux. Given the abnormal upper GI series I did recommend an upper endoscopy for evaluation. Full consent is obtained for this, including risks of bleeding and perforation. I did advise him that he could continue omeprazole if it is giving him good symptomatic improvement, or he could try to stop it to see how he does without it and if indeed it was truly helping him. In regard to his overall GI complaints I did recommend he try using lactose free dairy products to rule out any component of lactose intolerance contributing to his symptoms. I also recommended adding some daily Metamucil to his bowel regimen to see if that might make his bowel movements were regular. I did advise him to continue his hyoscyamine. I did advise him to adjust his MiraLax if he begins having some looser bowel movements. I will obtain duodenal biopsies to rule out celiac disease as a contributing factor to his symptoms as well. I also recommend an abdominal ultrasound to rule out any component of gallstones that might be contributing to his generalized abdominal discomfort. I did advise Krystal to contact me prior to the endoscopy if he begins having any worsening symptoms or has questions I can be of assistance with. Krystal was comfortable with this plan. Thank you again for allowing me to participate in Krystal's care. I shall continue to keep you advised of his progress. 05/29/2024 Gastric polyps (ICD-10 - K31.7) 04/04/2024 Irritable bowel syndrome with both constipation and diarrhea (ICD-10 - K58.0) Overall, Krystal appears well and does not seem to have any worrisome ongoing GI process at the present time. We did review his negative colonoscopy last year and I recommended a followup colonoscopy in 2027 for further screening purposes. In regard to his current symptoms this does seem like a combination of some irritable bowel syndrome, some possible effect of the GI tract by his underlying Parkinson's disease, and some component of gastritis and/or reflux. Given the abnormal upper GI series I did recommend an upper endoscopy for evaluation. Full consent is obtained for this, including risks of bleeding and perforation. I did advise him that he could continue omeprazole if it is giving him good symptomatic improvement, or he could try to stop it to see how he does without it and if indeed it was truly helping him. In regard to his overall GI complaints I did recommend he try using lactose free dairy products to rule out any component of lactose intolerance contributing to his symptoms. I also recommended adding some daily Metamucil to his bowel regimen to see if that might make his bowel movements were regular. I did advise him to continue his hyoscyamine. I did advise him to adjust his MiraLax if he begins having some looser bowel movements. I will obtain duodenal biopsies to rule out celiac disease as a contributing factor to his symptoms as well. I also recommend an abdominal ultrasound to rule out any component of gallstones that might be contributing to his generalized abdominal discomfort. I did advise Krystal to contact me prior to the endoscopy if he begins having any worsening symptoms or has questions I can be of assistance with. Krystal was comfortable with this plan. Thank you again for allowing me to participate in Krystal's care. I shall continue to keep you advised of his progress. 05/29/2024 Abnormal finding on GI tract imaging (ICD-10 - R93.3) 05/29/2024 Abdominal pain (ICD-10 - R10.9) Plan Of Treatment Future Test Test Name Order Date COLONOSCOPY 08/14/2011 COLONOSCOPY 04/13/2017 COLONOSCOPY 09/02/2022 UPPER GI ENDOSCOPY 04/04/2024 Insurance Providers Payer Name Payer Address Payer Phone Subscriber Number Group Number Insured Name Patient Relationship to Insured Coverage Start Date Coverage End Date [facility] [address] [place] [address] [id number] KRYSTAL DANIEL Self - patient is the insured Medical (General) History Medical History History ICD Code Denies NM,DM,CVA,Lung disease,renal dise ase Swallowing evaluation--had a n EGD at [facility] in 01/2017--told it was negative--having a F/U with the swallowing[facility] [facility] Colonoscopy in 09/2011--small tubular adenoma, diverticulosis, and internal hemorrhoids Parkinson's Negative colonoscopy in 06/2017 and 10/19 22 Surgical History Surgery Date(Month/Year) He describes vascular surger ies in 2002 and 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
== END 2025-03-15 16:15 | disposition home or self-care (01) ==
LOC: HO.HMGCX 16:14
PROVIDERS: PCP Internal Medicine; Visit Provider Internal Medicine
DX: M54.50 Low back pain, unspecified (principal)
CPT/HCPCS: 72110

== ENCOUNTER → 2025-03-15 16:24 | Outpatient (BNV) | payer BC, SELFPAY | PROVIDERS: PCP Internal Medicine; Visit Provider Radiology Body Imaging | DX: M51.370 Other intervertebral disc degeneration, lumbosacral region with discogenic back pain only (principal) | CPT/HCPCS: 72110 ==

== ENCOUNTER 2025-03-22 11:16 | Outpatient (REF) | payer BC, SELFPAY ==
--- OUTSIDE RECORDS SUMMARY | 2025-03-22 03:30 | XMS_ITS ---
Author Organization Galileo Gore MD Address [address] [place] [phone] Care Team Providers Care Summer Sessions Director Name Role Phone Galileo Gore Primary Care Provider Results Component Value Reference Range Notes Complete Blood Count Auto Di ff (Not yet reviewed by provider) Interpretation: Performing Lab:[facility], [address] [place] [phone] Notes/Report: White Blood Count 6.8 4.8-10.8 X10*3/uL [...] Panel Reviewed date:03/22/2025 12:31:57 PM Interpretation: Performing Lab:[address] [address] Notes/Report: Triglycerides 107 <150 mg/dL Desirable Triglyceride: [...] (Free>4and<10) Reviewed date:03/22/2025 12:32:12 PM Interpretation: Performing Lab:[address] [address] Notes/Report: PSA,Total (Free>4and<10) 1.16 0.00-4.00 ng/mL A [...] A1c Reviewed date:03/22/2025 12:32:04 PM Interpretation: Performing Lab:[facility], [address] [place] [phone] Notes/Report: Hemoglobin A1c % 5.4 <6.0 % [...] average glucose, using the formula of the Y6D-Dgitjkv Average Glucose study (ADAG), Diabetes Care, Vol.31,#8, Mar. 2007 REASON FOR VISIT yearly fasting labs Encounters Encounter Location Date Provider Diagnosis Galileo Gore MD [address] [place] [address] [address] [place], [place] [phone] 03/22/2025 Galileo Gore Blood tests for routine [...] Treatment Pending Test Test Name Order Date Complete Blood Count Auto Diff 5 Comprehensive [place]. Panel Fast 5 Microalbumin, Random 03/22/2025 UA ClnCatch+Micro w/rflx Cult 03/22/2025 Next Appt Details Provider Name:Galileo Mccray ier, 04/12/2025 09:30:00 AM, [address], [address], [place], [place], [phone], Progress Notes * Wellington PLUMMER EDOB:1960 (64 yo M)Acc No.[id number]:03/22/2025 Progress Note Patient: [place] MICHAUD Provider: Jade Gore MD :1960 A ge:64 Y S ex:Male Date:03/22/2025 Address:[address] [place] [address] [place], [id number] Subjective: * Chief Complaints: * 1 . Yearly fasting labs. * Medical History: Objective: * Vitals: Assessment: * Assessment: 1. B lood tests for routine general physical examination - Z00.00 (Primary) 2 .?Prediabetes - R73.09 3 . E levated PSA - R97.20 Plan: * Treatment: 2. P rediabetes L AB: Complete Blood Count Auto Diff (Collection Date & Time - 03/22/2025 07:30 AM) L AB: Comprehensive [place]. Panel Fast L AB: Microalbumin, Random L AB: UA ClnCatch+Micro w/rflx Cult L AB: Lipid Panel (Collection Date & Time - 03/22/2025 07:30 AM) L AB: PSA,Total (Free>4and<10) (Collection Date & Time - 03/22/2025 07:30 AM) L AB: Hemoglobin A1c (Collection Date & Time - 03/22/2025 07:30 AM) 3. E levated PSA L AB: Complete Blood Count Auto Diff (Collection Date & Time - 03/22/2025 07:30 AM) L AB: Comprehensive [place]. Panel Fast L AB: Microalbumin, Random L AB: UA ClnCatch+Micro w/rflx Cult L AB: Lipid Panel (Collection Date & [...] 03/22/2025 Generated for Rachel arango/Inge/Anujitting on: 0 03/22/2025 01:00 PM EDT
[2025-03-22 11:21] LABS: MANUAL DIFF FLAG NO
[2025-03-22 11:26] LABS: Hematocrit 42.4 % (42.0-52.0); Hemoglobin 14.0 g/dl (14.0-18.0); Imm Gran Abs Auto 0.02 X10*3/uL (0.00-0.03); Imm Gran Pct Auto 0.3 % (0.0-0.4); Lymphocytes Absolute Auto 2.2 X10*3/uL (1.2-4.9); Mean Corpuscular HGB Conc 33.0 g/dl (31.0-36.0); Mean Corpuscular Hemoglobin 30.9 pg (27.0-33.0); Mean Corpuscular Volume 93.6 fL (80.0-98.0); NRBC Abs Auto 0.000 X10*3/uL (0.0-0.012); NRBC Pct Auto 0.0 /100WBC (0.0-0.2); Platelet Count 201 X10*3/uL (160-400); Red Blood Count 4.53 X10*6/uL (4.60-5.80); White Blood Count 6.8 X10*3/uL (4.8-10.8)
[2025-03-22 11:36] LABS: Hemoglobin A1C 131.5238 umol/L; Total Hemoglobin (HGBA1C) 3677.1931 umol/L
[2025-03-22 12:08] LABS: Alanine Aminotransferase 10 U/L (0-40); Albumin Level 4.6 g/dL (3.5-5.0); Alkaline Phosphatase 78 U/L (39-117); Anion Gap 12 (12-20); Aspartate Amino Transferase 25 U/L (5-37); Blood Urea Nitrogen 26 mg/dL (9-16); Calcium 9.1 mg/dL (8.4-10.2); Carbon Dioxide 28 mmol/L (22-29); Chloride 106 mmol/L (96-108); Cholesterol 201 mg/dL (<200); Estimated Glomerular Filt Rate > 60; HDL Cholesterol 53 mg/dL (>40); Potassium 4.6 mmol/L (3.3-5.1); Sodium 141 mmol/L (135-145); Total Protein 6.9 g/dL (6.5-8.0); Triglycerides 107 mg/dL (<150)
[2025-03-22 12:27] LABS: PSA,Total (Free>4and<10) 1.16 ng/mL (0.00-4.00)
--- OUTSIDE RECORDS SUMMARY | 2025-03-22 13:00 | XMS_ITS | Patient Health Record ---
Author Organization [facility] Address [address] [place] [address] Care Team Providers Care Campus Dean Name Role Phone Bao ROSEN, Galileo Primary Care Provider Mj Bui [phone] Allergies Allergen (clinical drug ingredient) Drug/Non Drug Allergy documented on EMR Reaction Allergy Type Onset Date Status acetaminophen / oxycodone Percocet N/V Drug Allergy Active Results Component Value Reference Range Notes US abdomen complete Reviewed date:05/21/2024 08:15:11 PM Interpretation: Performing Lab: Notes/Report: [address] [address] Ultrasound Report Signed Patient: Krystal Daniel MR#: [id number] 7 : 1960 Acct:[id number] Age/Sex: 63 / M ADM Date: 04/07/24 Loc: HO.US Attending Dr: Mj Pena MD Ordering Physician: Mj Pena MD Date of Service: 04/07/24 Procedure(s): US abdomen complete Accession Number(s): [id number] cc: Galileo Gore MD; Mj Pena MD [...] 04/13/24 1302 DD/ 0822 TD/TT: 04/07/24 0834 Developer Prover Mechanical: Pathology Reviewed date:12/30/2024 04:19:45 PM Interpretation: Performing Lab:[facility], [address] [place] [phone] Notes/Report: Reason For Referral No Information Medications [...] Problem Status W/U Status Risk Notes Problem [id number] Encounter for screening for malignant neoplasm of colon (Z12.11) Active confirmed Problem 547991792 History of adenomatous polyp of colon (Z86.010) Active confirmed Problem History of polyp of colon (situation) (951102649) Personal history of colonic polyps (Z86.010) Active confirmed Problem Diverticular disease of colon (063550386) Diverticulosis of large intestine without perforation or abscess without bleeding (K57.30) Active confirmed Problem 085556136 Preprocedural examination (Z01.818) Active confirmed Problem Abnormal upper gastrointestinal barium series (R93.3) Active confirmed Problem Benign neoplasm of stomach (13413892) Gastric polyps (K31.7) Active confirmed Problem Gastritis (7010096) Gastritis (K29.70) Active confirmed Problem Irritable bowel syndrome (26492616) Irritable bowel syndrome with both constipation and diarrhea (K58.0) Active confirmed Problem Generalized abdominal pain (877151347) Abdominal discomfort, generalized (R10.84) Active confirmed Vital Signs Blood pressure diastolic 00 mm Hg 04/04/2024 Height 71.25 in 04/04/2024 Blood pressure systolic 000 mm Hg 04/04/2024 Weight 158 lbs 04/04/2024 BMI 21.88 kg/m2 04/04/2024 Encounters Encounter Location Date Provider Diagnosis [facility] Outpatient [address] [place] [phone] 05/29/2024 Mj Pena Hiatal hernia K44.9 ; Gastritis K29.70 ; Gastric polyps K31.7 ; Abnormal finding on GI tract imaging R93.3 and Abdominal pain R10.9 [facility] [address] [place] [phone] 04/04/2024 Mj Pena Abdominal discomfort , generalized R10.84 ; Abnormal upper gastrointestinal barium series R93.3 and Irritable bowel syndrome with both constipation and diarrhea K58.0 [facility] [address] [place] [phone] 03/23/2024 Mj Pena [facility] [address] [place] [phone] 04/13/2024 Mj Pena [facility] [address] [place] [phone] 05/08/2024 Mj Pena [facility] [address] [place] [phone] 05/19/2024 Mj Pena [facility] [address] [place] [phone] 05/23/2024 Mj Pena [facility] [address] [place] [phone] 01/02/2025 Mj Pena Assessments Encounter Date Diagnosis [...] Insured Coverage Start Date Coverage End Date [facility] [address] [place] [address] [id number] KRYSTAL DANIEL Self - patient is the insured Medical (General) History Medical History History ICD Code Denies AL,DM,CVA,Lung disease,renal dise ase Swallowing evaluation--had a n EGD at [facility] in 01/2017--told it was negative--having a F/U with the swallowing/speech center at [facility] Colonoscopy in 09/2011--small tubular adenoma, diverticulosis, and internal hemorrhoids Parkinson's Negative colonoscopy in 06/2017 and 10/19 22 Surgical History Surgery Date(Month/Year) He describes 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
--- OUTSIDE RECORDS SUMMARY | 2025-03-22 13:01 | XMS_ITS | Encounter Summary ---
Author Organization [facility] Address [address] [facility] [address] [place] [phone] Phone Care Team Providers Care Stamp Pad Maker Name Role Phone Galileo Gore MD Primary Care Provider Encounter Details Date Type Department Care Team (Late st Contact Info) Description 11/10/2022 Procedure Pass [facility] Cardiac US [address] [place] [address] Social History Tobacco Use Types Packs/Day Years [...] (Latest Contact Info) Description 05/22/2024 Procedure Pass [facility] for Outpatient Care - MRI [address] [facility], 6th [place] [address] 09/11/2024 Procedure Pass [facility] MRI, Lunder [address] [facility], 4th [place] [address] 04/20/2025 11:45 AM EDT Pre-Admission Testing [facility] Pre-Procedure Evaluation Department Please [place] [phone] [facility] Admitting, Provider 05/04/2025 Procedure Pass [facility] PERIOPERATIVE DEPT [address] [place] [address] 05/04/2025 7:00 AM EDT Appointment [facility] MRI, [address] [facility], 4th [place] [address] Mj Young MD, PhD [address] [place] [phone] [email or web address] 05/04/2025 7:45 AM EDT Hospital Encounter [facility] PERIOPERATIVE DEPT [address] [place] [phone] Mj Young MD, PhD [address] [place] [phone] [email or web address] 05/04/2025 7:45 AM EDT - 05/04/2025 2:42 PM EDT Surgery [facility] PERIOPERATIVE DEPT [address] [place] [phone] Mj Young MD, PhD [address] [place] [phone] [email or web address] INSERTION STIMULATOR DEEP BRAIN 05/10/2025 Procedure Pass [facility] Periop Dept [address] [place] [address] 05/10/2025 Procedure Pass [facility] Periop Dept [address] [place] [address] 05/11/2025 12:45 PM EDT Pre-Admission Testing [facility] Pre-Procedure Evaluation Department Please [place] [address] [facility] Admitting, Provider 05/18/2025 Procedure Pass [facility] PERIOPERATIVE DEPT [address] [place] [phone] 05/18/2025 2:39 PM EDT Hospital Encounter [facility] PERIOPERATIVE DEPT [address] [place] [phone] Mj Young MD, PhD [address] [place] [phone] [email or web address] 05/18/2025 2:39 PM EDT - 05/18/2025 5:01 PM EDT Surgery [facility] PERIOPERATIVE DEPT [address] [place] [phone] Mj Young MD, PhD [address] [address] [email or web address] PLACEMENT PULSE GENERATOR INFRACLAVICULAR 11/05/2025 9:45 AM EDT Appointment [facility] for Outpatient Care - MRI [address] [place] [address], 6th [place] [address] Keri Smith, PULPIT OPERATOR [address] [place] [phone] [email or web address] 11/05/2025 1:00 PM EDT Office Visit [facility] Cardiovascular Medicine [address] [place] [address], 5th Floor, [address] [place] [address] Keri Smith, PULPIT OPERATOR [address] [place] [phone] [email or web address] Scheduled Procedures Name Priority Associated Diagnoses Date/Ti me INSERTION STIMULATOR DEEP BRAIN Parkinson's disease with dyskinesia and fluctuating manifestations 05/04/2025 7:45 AM EDT MODIFIER MRI Parkinson's disease with dyskinesia and fluctuating manifestations 05/04/2025 7:45 AM EDT PLACEMENT PULSE GENERATOR INFRACLAVICULAR Parkinson's disease, unspecified whether dyskinesia present, unspecified whether manifestations fluctuate 05/18/2025 2:39 PM EDT documented as of this encounter Visit Diagnoses Not on filedocumented in this encounter Care Teams Stamp Pad Maker Relationship Specialty Start Date End Date Galileo Gore MD [address] [place] [address] [place] [id number] PCP - General 01/30/14 documented as of this encounter Additional Source Comments The information contained in this document represents components of the legal health record. It is not the complete legal health record.[facility]
--- OUTSIDE RECORDS SUMMARY | 2025-03-22 13:01 | XMS_ITS | Encounter Summary ---
Author Organization [facility] Address [address] [place] [address] Care Team Providers Care Applied Technologist Name Role Phone Cornellrobby Galileo Primary Care Provider [phone] Reason for Visit * Reason Onset Date Comments Change in location of Fluoroscopy 09/16/2022 Encounter Details Date Type Department Care Team (Late st Contact Info) Description 09/16/2022 Telephone [facility] [address] [place] [phone] Telephone Intake, Staff Change in location of [...] AM EST Faxed referral to Kerwin Alonzo [place] at [phone] documented in this encounter Plan of Treatment Upcoming Encounters Date Type Department Care Team (Late st Contact Info) Description 06/18/2025 8:00 AM EST Office Visit [facility] [address] [place] [phone] Mindy German NP [address] [place] [address] 07/04/2025 8:00 AM EST Office Visit [facility] [address] [place] [address] Mindy German NP [address] [place] [address] 07/18/2025 8:00 AM EST Office Visit [facility] [address] [place] [phone] Mindy German NP [address] [place] [phone] 10/18/2025 2:30 PM EDT Procedure visit [facility] [address] [address] Surinder Valenzuela MD [address] [place] [phone] documented as of this encounter Visit Diagnoses Not on filedocumented in this encounter Care Teams Applied Technologist Relationship Specialty Start Date End Date Galileo Gore [address] [place] [address] [place] [address] PCP - General Internal Medicine 02/08/20 documented as of this encounter
== END 2025-03-22 11:17 | disposition home or self-care (01) ==
LOC: HO.LNP 11:16
PROVIDERS: Visit Provider Internal Medicine
DX: Z00.00 Encounter for general adult medical examination without abnormal findings (principal); R73.03 Prediabetes; R97.20 Elevated prostate specific antigen [PSA]; Z12.5 Encounter for screening for malignant neoplasm of prostate; Z13.6 Encounter for screening for cardiovascular disorders
CPT/HCPCS: 80053; 80061; 83036; 84153; 85025

== ENCOUNTER 2025-04-12 12:37 | Outpatient (REF) | payer BC, SELFPAY ==
--- OUTSIDE RECORDS SUMMARY | 2024-05-29 09:40 | XMS_ITS ---
Author Organization [facility] Address [address] [place] [address] Care Team Providers Care Gym Attendant Name Role Phone Galileo Gore MD Primary Care Provider Mj Bui Unavailable [phone] REASON FOR VISIT abdominal pain,abnormal UGI barium series Problems Problem Type SNOMED Code ICD Code Onset Dates Problem Status W/U Status Risk Notes Problem Gastritis (2592487) Gastritis (K29.70) Active confirmed Problem Benign neoplasm of stomach (79359580) Gastric polyps (K31.7) Active confirmed Encounters Encounter Location Date Provider Diagnosis [facility] [place] [facility] [address] [place] [id number] 05/29/2024 Mj Pena Hiatal hernia K44. 9 ; Gastritis K29.70 ; Gastric polyps K31.7 ; Abnormal finding on GI tract imaging R93.3 and Abdominal pain R10.9 Assessments Encounter Date Diagnosis (ICD Code) Assessment Notes Treatment Notes Treatment Clinical Notes Section Notes 05/29/2024 Hiatal hernia (ICD-10 - K44.9) 05/29/2024 Gastritis (ICD-10 - K29.70) 05/29/2024 Gastric polyps (ICD-10 - K31.7) 05/29/2024 Abnormal finding on GI tract imaging (ICD-10 - R93.3) 05/29/2024 Abdominal pain (ICD-10 - R10.9) Plan Of Treatment No Information Progress Notes * KRYSTAL PLUMMER EDOB:1960 (64 yo M)Acc No.[id number]:05/29/2024 EGD/MAC Patient: KRYSTAL MICHAUD Provider: Bradley Pena MD :1960 A ge:63 Y S ex:Male Date:05/29/2024 Address:[address] [place] [address] [id number] Pcp:Galileo Gore MD Subjective: * Chief Complaints: * 1 . abdominal pain,abnormal UGI barium series. * Medical History: Objective: * Vitals: Assessment: * Assessment: 1. H iatal hernia - K44.9 (Primary) 2 . G astritis - K29.70 ?3. G astric polyps - K31.7 4 . A bnormal finding on GI tract imaging - R93.3 5 . A bdominal pain - R10.9 Plan: * Treatment: * Procedure Codes: 4 3239 UPPER GI ENDOSCOPY, BIOPSY * * The named appointment provid er may or may not be the originator of this progress note, and it is not deemed complete until electronically signed by the appointment provider. Sign off status: Pending * Provider: Bradley Pena MD Date: Generated for Rachel arango/Inge/eTransmitting on: 0 04/12/2025 04:48 PM EDT
--- OUTSIDE RECORDS SUMMARY | 2025-03-15 05:15 | XMS_ITS ---
Author Organization Galileo Gore MD Address [address] [place] [phone] Care Team Providers Care Sash Sticker Name Role Phone Galileo Gore Primary Care Provider [phone] Allergies No Known Allergies Results Component Value Reference Range Notes XR lumbar spine 4V min Reviewed date:03/16/2025 09:33:47 AM Interpretation: Performing Lab: Notes/Report: [facility] [address] [place] [address] [place] [address] XRay Report Signed Patient: Wellington Plummer MR#: [id number] 7 : 1960 Acct:[id number] Age/Sex: 64 / M ADM Date: 03/15/25 Loc: HO.[facility]GCX Attending Dr: Galileo Gore MD Ordering Physician: Galileo Gore MD Date of Service: 03/15/25 Procedure(s): XR lumbar spine 4V min Accession Number(s): [id number] cc: Galileo Gore MD XR LUMBAR SPINE 4 OR MORE VIEWS Reason: M54.9 LOW BACK PAIN Comparison: Radiographs on May 22, 2019 FINDINGS: Lumbar lordosis is maintained. No subluxation. No compression fracture. Disc space narrowing is more prominent at L4-L5 and L5-S1. Marginal osteophytes at multiple levels. Facet arthropathy is more prominent at L5-S1. Sacroiliac joints are intact. Degenerative changes have mildly progressed from 2019. XR/XR lumbar spine 4V min IMPRESSION: Multilevel degenerative changes, mildly progressed from 2019. Electronically signed by: Sandra Ramirez MD 03/15/2025 05:50 PM EDT RP Dictated By: Sandra Ramirez MD Signed By: <Electronically signed by Sandra Ramirez MD in OV> 03/15/25 1750 DD/ 1624 TD/TT: 03/15/25 1630 Enterprise Business Architect: [facility] [address] [place] [address] [place] [address] XRay Report Signed Patient: Wellington Plummer MR#: [id number] 7 : 1960 Acct:[id number] Age/Sex: 64 / M ADM Date: 03/15/25 [facility] Dr: Galileo Gore MD Ordering Physician: Galileo Gore MD Date of Service: 03/15/25 Procedure(s): XR lum bar spine 4V min Accession Number(s): [id number] cc: Galileo Gore MD XR LUMBAR SPINE 4 OR MORE VIEWS Reason: M54.9 LOW BACK PAIN Comparison: Radiogra [facility] on May 22, 2019 FINDINGS: Lumbar lordosis is m aintained. No subluxation. No compression fracture. Disc space narrowing is more prominent at L4-L5 and L5-S1. Marginal osteophytes at multi ple levels. Facet arthropathy is more prominent at L5-S1. Sacroiliac deniz ints are intact. Degenerative changes have mildly progressed from 2019. X R/XR lumbar spine 4V min IMPRESSION: Multilevel degenerat josefa changes, mildly progressed from 2019. Electronically eliza d by: Sandra Ramirez MD 03/15/2025 05:50 PM EDT RP Dictated By: Sandra Ramirez MD Signed By: <Electron ically signed by Sandra Ramirez MD in OV> 03/15/25 1750 DD/ 1624 TD/TT: 03/15/25 1630 Enterprise Business Architect: REASON FOR VISIT LOWER BACK PAIN Medications Medication SIG (Take, Route, Frequency, Duration) Notes Start Date End Date Status Ambien 5 MG 1 tablet at bedtime Orally Once a day for 10 days 08/28/2019 Not-Taking Tamsulosin HCl 0.4 MG TAKE ONE CAPSULE B Y MOUTH TWICE A DAY for 180 Active Gabapentin 300 MG 2 capsules once a da y for 90 days Active Omeprazole 40 MG 1 capsule 30 minutes before morning meal Orally Once a day Active Carbidopa-Levodopa ER 50-200 MG 1 tablet as needed Orally hs Active Melatonin 5 MG 1 tablet in the evening Orally Once a day for 30 day(s) Active Mirtazapine 7.5 MG 1tablets at bedtime Orally Once a day Active Finasteride 5 MG 1 tablet Orally Once a day Active Sildenafil Citrate 100 MG TAKE 1/2 TABLE T BY MOUTH ONCE DAILY NEEDED for 60 Active Carbidopa-Levodopa 25-100 MG 2 tablet as needed Orally 5 times a day Active Cyclobenzaprine HCl 5 MG 1 tablet at bed time as needed Orally twice a day for 10 days 03/15/2025 Active Vital Signs Blood pressure systolic 114 mm Hg 03/15/20 25 Blood pressure diastolic 60 mm Hg 025 Height 70 in 03/15/2025 Weight 166 lbs 03/15/2025 BMI 23.82 kg/m2 03/15/2025 weight is down 2 pounds [facility] 09-14-24 Encounters Encounter Location Date Provider Diagnosis Galileo Gore MD [address] [place] [address] [place] [phone] 03/15/2025 Galileo Gore Back pain M54.9 Assessments Encounter Date Diagnosis (ICD Code) Assessment Notes Treatment Notes Treatment Clinical Notes Section Notes 03/15/2025 Back pain (ICD-10 - M54.9) patient verbalized understanding of medication and directins for use Plan Of Treatment Medication Medication Name Sig Start Date Stop Date Notes Cyclobenzaprine HCl 5 MG 1 tablet at bed time as needed Orally twice a day for 10 days 03/15/2025 Treatment Notes Assessment Notes Back pain patient verbalized u nderstanding of medication and directins for use Next Appt Details Follow Up: 2 Weeks, Reason: Provider Name:Galileo landaverder, 07/13/2025 10:15:00 AM, [address], [address], [place], [place], [phone], Provider Name:Galileo Mccray ier, 04/09/2026 07:45:00 AM, [address], [address], [place], [place], [phone], Provider Name:Galileo Mccray ier, 04/15/2026 10:30:00 AM, [address], [address], [place], [place], [phone], Progress Notes * Wellington PLUMMER EDOB:1960 (64 yo M)Acc No.[id number]:03/15/2025 Progress Notes Patient: Wellington MICHAUD Provider: Jade Gore MD :1960 A ge:64 Y S ex:Male Date:03/15/2025 Address:[address] [place] [address] [place], [id number] Subjective: * Chief Complaints: * L OWER BACK PAIN * HPI: S ymptom(s): patient is a 64 yo malehere for complaint of lower back pain/ if he sits for a few minutes has to use a cane to get up. pain does not go down leg. only hurts for a few seconds. sometimes lasts a couple minutes. * ROS: G eneral/Constitutional: Denies C hills. D enies F atigue. D enies F ever. D enies H eadache. E NT: Denies S ore throat. R espiratory: Denies C ough. D enies S hortness of breath at rest. D enies S hortness of breath with exertion. G astrointestinal: Denies D iarrhea. D enies N ausea. * Medical History: * Surgical History: * Hospitalization/Major Diagno stic Procedure: * Medications: T akingMirtazapine 7.5 MG Tablet 1tablets at bedtime Orally Once a day Melatonin 5 MG Tablet 1 tablet in the evening Orally Once a day Sildenafil Citrate 100 MG Tablet TAKE 1/2 TABLET BY MOUTH ONCE DAILY NEEDED Finasteride 5 MG Tablet 1 tablet Orally Once a day Carbidopa-Levodopa 25-100 MG Tablet 2 tablet as needed Orally 5 times a day Gabapentin 300 MG Capsule 2 capsules once a day Carbidopa-Levodopa ER 50-200 MG Tablet Extended Release 1 tablet as needed Orally hs Omeprazole 40 MG Capsule Delayed Release 1 capsule 30 minutes before morning meal Orally Once a day Tamsulosin HCl 0.4 MG Capsule TAKE ONE CAPSULE BY MOUTH TWICE A DAY Taking Mirtazapine 7.5 MG Tablet 1tablets at bedtime Orally Once a day Taking Melatonin 5 MG Tablet 1 tablet in the evening Orally Once a day Taking Sildenafil Citrate 100 MG Tablet TAKE 1/2 TABLET BY MOUTH ONCE DAILY NEEDED Taking Finasteride 5 MG Tablet 1 tablet Orally Once a day Taking Carbidopa-Levodopa 25-100 MG Tablet 2 tablet as needed Orally 5 times a day Taking Gabapentin 300 MG Capsule 2 capsules once a day Taking Carbidopa-Levodopa ER 50-200 MG Tablet Extended Release 1 tablet as needed Orally hs Taking Omeprazole 40 MG Capsule Delayed Release 1 capsule 30 minutes before morning meal Orally Once a day Taking Tamsulosin HCl 0.4 MG Capsule TAKE ONE CAPSULE BY MOUTH TWICE A DAY Not-Taking/PRNAmbien 5 MG Tablet 1 tablet at bedtime Orally Once a day Medication List reviewed and reconciled with the patientNot-Taking/PRN Ambien 5 MG Tablet 1 tablet at bedtime Orally Once a day Medication List reviewed and reconciled with the patient * Allergies: N .K.D.A.yes[Allergies Verified] Objective: * Vitals: H t: 70, Wt: 166, BMI:23.82, BP:114/60, Wt-k.3. weight is down 2 pounds since 09-14-24. * Examination: G eneral Examination: GENERAL APPEARANCE: a lert, well hydrated, in no distress.? BACK: a bnormal pain in mid and left lower back. Assessment: * Assessment: 1. B ack pain - M54.9 (Primary) Plan: * Treatment: * Procedure Codes: * Follow Up: 2 Weeks * * Sign off status: Completed true * Provider: Jade Gore MD Date: 03/15/2025 Generated for Rachel arango/Inge/eTransmitting on: 0 04/12/2025 04:49 PM EDT History and Physical Notes * HPI (History of Present Illness) Category Sub-Category Detail Notes Category Not es Symptom(s) patient is a 64 yo malehere for complaint of lower back pain/ if he sits for a few minutes has to use a cane to get up. pain does not go down leg. only hurts for a few seconds. sometimes lasts a couple minutes. Examination Category Sub-Category Detail Notes Category Not es General Examination GENERAL APPEARANCE: alert, w ell hydrated, in no distress BACK: abnormal pain in mid and left lower back
--- OUTSIDE RECORDS SUMMARY | 2025-03-16 05:04 | XMS_ITS ---
Author Organization Galileo Gore MD Address [address] [place] [phone] Care Team Providers Care Electrode Cleaner Name Role Phone Galileo Gore Primary Care Provider REASON FOR VISIT med issue Medications Medication SIG (Take, Route, Frequency, Duration) Notes Start Date End Date Status Cyclobenzaprine HCl 5 MG 1 tablet at bed time as needed Orally twice a day for 10 days 03/15/2025 Active Encounters Encounter Location Date Provider Diagnosis Galileo Gore MD [address] [facility] [address] [place] [phone] 03/16/2025 Galileo Gore Back pain M54.9 Assessments Encounter Date Diagnosis (ICD Code) Assessment Notes Treatment Notes Treatment Clinical Notes Section Notes 03/16/2025 Back pain (ICD-10 - M54.9) Plan Of Treatment Medication Medication Name Sig Start Date Stop Date Notes Cyclobenzaprine HCl 5 MG 1 tablet at bed time as needed Orally twice a day for 10 days 03/15/2025 Next Appt Details Provider Name:Galileo marcano, 07/13/2025 10:15:00 AM, [address] [facility], [address] [place] [address], [phone], Provider Name:Galileo marcano, 04/09/2026 07:45:00 AM, [address], [address], [place], [place], [phone], Provider Name:Galileo Mccray ier, 04/15/2026 10:30:00 AM, [address] [facility], [address], [place], [place], [phone], Progress Notes * Wellington PLUMMER EDOB:1960 (64 yo M)Acc No.[id number]:03/16/2025 Patient: [place] YANIQUEWellington Franklin :1960 A ge:64 Y S ex:Male Address:[address] [place] [address] [place] * Refills Refill Cyclobenzaprine HCl Tablet, 5 MG, Orally, 20 Tablet, 1 tablet at bedtime as needed, twice a day, 10 days, Refills=1 * true * Date: Generated for Rachel arango/Inge/Anujitting on: 0 04/12/2025 04:48 PM EDT
--- OUTSIDE RECORDS SUMMARY | 2025-03-16 11:51 | XMS_ITS ---
Author Organization Galileo Gore MD Address [address] [place] [phone] Care Team Providers Care Agricultural Engineering Technician Name Role Phone Galileo Gore Primary Care Provider REASON FOR VISIT Xray Encounters Encounter Location Date Provider Diagnosis Galileo Gore MD 10 [facility] [address] [place] [phone] 03/16/2025 Galileo Gore Plan Of Treatment Next Appt Details Provider Name:Galileo Mccray ier, 07/13/2025 10:15:00 AM, [address] [place] [address], [address], [phone], Provider Name:Galileo Mccray ier, 04/09/2026 07:45:00 AM, [address] [place] [address], [address], [phone], Provider Name:Galileo marcano, 04/15/2026 10:30:00 AM, [address] [place] [address], [address], [phone], Progress Notes * Wellington PLUMMER EDOB:1960 (64 yo M)Acc No.[id number]:03/16/2025 Patient: D UPONT, Wellington E :1960 A ge:64 Y S ex:Male Address:[address] [place] [address] [place] [address] * true * Date: Generated for Rachel arango/Inge/Anujitting on: 0 04/12/2025 04:49 PM EDT
--- OUTSIDE RECORDS SUMMARY | 2025-03-22 03:30 | XMS_ITS ---
Author Organization Galileo Gore MD Address [address] [place] [phone] Care Team Providers Care Computer Science Instructor Name Role Phone Galileo Gore Primary Care Provider Results Component Value Reference Range Notes Complete Blood Count Auto Di ff Reviewed date:03/22/2025 04:28:07 PM Interpretation: Performing Lab:[facility], [address] [place] [phone] Notes/Report: White Blood Count 6.8 4.8-10.8 X10*3/uL Red Blood Count 4.53 4.60-5.80 X10*6/uL Hemoglobin 14.0 14.0-18.0 g/dl Hematocrit 42.4 42.0-52.0 % Mean Corpuscular Volume 93.6 80.0-98.0 fL Mean Corpuscular Hemoglobin 30.9 27.0-33.0 pg Mean Corpuscular HGB Conc 33.0 31.0-36.0 g/dl Red Cell Distribution Width 13.5 11.0-16.0 % Platelet Count 201 160-400 X10*3/uL Mean Platelet Volume 9.5 9.4-12.4 fL Neutrophils Percent Auto 55.2 45-73 % Imm Gran Pct Auto 0.3 0.0-0.4 % Lymphocytes Percent Auto 32.2 20-40 % Monocytes Percent Auto 6.7 2-11 % Eosinophils Percent Auto 4.4 0-4 % Basophils Percent Auto 1.2 0-2 % NRBC Pct Auto 0.0 0.0-0.2 /100WBC Neutrophils Absolute Auto 3.7 2.0-8.3 x10*3/u L Imm Gran Abs Auto 0.02 0.00-0.03 X10*3/uL Lymphocytes Absolute Auto 2.2 1.2-4.9 X10*3/u L Monocytes Absolute Auto 0.5 0.1-1.2 X10*3/uL Eosinophils Absolute Auto 0.3 0.0-0.4 X10*3/u L Basophils Absolute Auto 0.1 0.0-0.2 X10*3/uL NRBC Abs Auto 0.000 0.0-0.012 X10*3/uL Lipid Panel Reviewed date:03/22/2025 12:31:57 PM Interpretation: Performing Lab:[address] [phone] Notes/Report: Triglycerides 107 <150 mg/dL Desirable Triglyceride: less than 150 mg/dL Borderline High Triglyceride 150-199 mg/dL High Triglyceride: 200-499 mg/dL Very High Triglyceride: greater than or equal to 5OO mg/dL Cholesterol 201 <200 mg/dL Desirable Cholesterol: less than 200 mg/dL Borderline High Cholesterol: 200-239 mg/dL High Cholesterol: greater than 239 mg/dL LDL Cholesterol Calculated 127 <100 mg/dL Desirable LDL: less than 100 mg/dL Near Optimal/Above Optimal LDL: 110-129 mg/dL Borderline High LDL: 130-159 mg/dL High LDL: 160-189 mg/dL Very High LDL: greater than or equal to 190 mg/dL HDL Cholesterol 53 >40 mg/dL Desirable HDL: greater than 40 mg/dL Note: This HDL assay may give artificially low results in patients with liver disease. PSA,Total (Free>4and<10) Reviewed date:03/22/2025 12:32:12 PM Interpretation: Performing Lab:[address] [address] Notes/Report: PSA,Total (Free>4and<10) 1.16 0.00-4.00 ng/mL A Free PSA was not [...] Marin Alinity i Chemiluminescent Microparticle Immunoassay (CMIA) Hemoglobin A1c Reviewed date:03/22/2025 12:32:04 PM Interpretation: Performing Lab:[facility], [address] [place] [phone] Notes/Report: Hemoglobin A1c % 5.4 <6.0 % Hemoglobin A1C Reference Range Adults: 4.8 - 6.0 % Non diabetic: < 6.0 % Goal: < 7.0 % Additional Action Suggested: > 8.0 % Note: Hemoglobin A1c results are invalid for patients with abnormal amounts of HbF. Blood transfusions may impact the HbA1c concentration in the patient sample. Estimated Average Glucose 108 eAG = Estimated average glucose which is %A1C expressed as average glucose, using the formula of the O3Z-Clbwzwj Average Glucose study (ADAG), Diabetes Care, Vol.31,#8, Mar. 2007 REASON FOR VISIT yearly fasting labs Encounters Encounter Location Date Provider Diagnosis Galileo Gore MD [address] [place] [address] [address] [place], [place] [phone] 03/22/2025 Galileo Gore Blood tests for routine general physical examination Z00.00 ; Prediabetes R73.09 and Elevated PSA R97.20 Assessments Encounter Date Diagnosis (ICD Code) Assessment Notes Treatment Notes Treatment Clinical Notes Section Notes 03/22/2025 Blood tests for routine general physical examination (ICD-10 - Z00.00) 03/22/2025 Prediabetes (ICD-10 - R73.09) 03/22/2025 Elevated PSA (ICD-10 - R97.20) Plan Of Treatment Pending Test Test Name Order Date Comprehensive [place]. Panel Fast Microalbumin, Random 03/22/2025 UA ClnCatch+Micro w/rflx Cult 03/22/2025 Next Appt Details Provider Name:Galileo Mccray ier, 07/13/2025 10:15:00 AM, [address], [address], [place], [phone], Provider Name:Galileo Mccray ier, 04/09/2026 07:45:00 AM, [address], [address], [place], [place], [phone], Provider Name:Galileo Mccray ier, 04/15/2026 10:30:00 AM, [address], [address], [place], [place], [phone], Progress Notes * Wellington PLUMMER EDOB:1960 (64 yo M)Acc No.[id number]:03/22/2025 Progress Note Patient: Wellington MICHAUD Provider: Jade Gore MD :1960 A ge:64 Y S ex:Male Date:03/22/2025 Address:[address] [place] [address] [place], [id number] Subjective: * Chief Complaints: * 1 . Yearly fasting labs. * Medical History: Objective: * Vitals: Assessment: * Assessment: 1. B lood tests for routine general physical examination - Z00.00 (Primary) 2 .?Prediabetes - R73.09 3 . E levated PSA - R97.20 Plan: * Treatment: 2. P rediabetes L AB: Comprehensive [place]. Panel Fast L AB: Microalbumin, Random L AB: UA ClnCatch+Micro w/rflx Cult L AB: Complete Blood Count Auto Diff (Collection Date & Time - 03/22/2025 07:30 AM) L AB: Lipid Panel (Collection Date & Time - 03/22/2025 07:30 AM) L AB: PSA,Total (Free>4and<10) (Collection Date & Time - 03/22/2025 07:30 AM) L AB: Hemoglobin A1c (Collection Date & Time - 03/22/2025 07:30 AM) 3. E levated PSA L AB: Comprehensive [place]. Panel Fast L AB: Microalbumin, Random L AB: UA ClnCatch+Micro w/rflx Cult L AB: Complete Blood Count Auto Diff (Collection Date & Time - 03/22/2025 07:30 AM) L AB: Lipid Panel (Collection Date & Time - 03/22/2025 07:30 AM) L AB: PSA,Total (Free>4and<10) (Collection Date & Time - 03/22/2025 07:30 AM) L AB: Hemoglobin A1c (Collection Date & Time - 03/22/2025 07:30 AM) * Procedure Codes: 3 6415 VENIPUNCT, ROUTINE* * * The named appointment provid er may or may not be the originator of this progress note, and it is not deemed complete until electronically signed by the appointment provider. Sign off status: Pending * Provider: Jade Gore MD Date: 0 03/22/2025 Generated for Rachel arango/Inge/Anujitting on: 0 04/12/2025 04:48 PM EDT
--- OUTSIDE RECORDS SUMMARY | 2025-04-12 04:30 | XMS_ITS ---
Author Organization Galileo Gore MD Address [address] [place] [phone] Care Team Providers Care Doctor Of Medicine Name Role Phone Galileo Gore Primary Care Provider Allergies No Known Allergies Results Component Value Reference Range Notes Occult Blood, Stool, Guaiac Reviewed date:04/12/2025 12:09:37 PM Interpretation:Negative Performing Lab: Notes/Report: Negative Occult Blood, Stool, Guaiac Neg Blood Urea Nitrogen Reviewed date:04/12/2025 02:12:14 PM Interpretation: Performing Lab:[facility], [address] [place] [phone] Notes/Report: Blood Urea Nitrogen 21 9-16 mg/dL Microalbumin, Random Reviewed date:04/12/2025 04:34:47 PM Interpretation: Performing Lab:[facility], [address] [place] [phone] Notes/Report: Creatinine Urine 133.91 Microalbumin Urine 10.0 Microalbum/Creatinine Ratio Ur 7.4 <30 ug/mg cr Albumin/Creatinine Ratio Reference Ranges: Normal: < 30 ug/mg creatinine Microalbuminuria: 30 - 300 ug/mg creatinine Clinical Albuminuria: > 300 ug/mg creatinine UA ClnCatch+Micro w/rflx Cul t Reviewed date:04/12/2025 04:35:07 PM Interpretation: Performing Lab:[facility], [address] [place] [address], [place] [phone] Notes/Report: [id number] Urine, Clean Catch Color Urine Dark Yellow Appearance Urine Clear PH 6.5 5.0-9.0 Glucose Urine UA Negative Negative mg/dL Urine Blood Negative Negative Specific [place] - Urine 1.025 1.005-1.025 Urine Protein Negative Neg-Trace mg/dL Urine Ketones Trace Negative mg/dL Nitrite Urine Negative Negative Leukocyte Esterase Urine Small (1+) Negative RBC Urine 0-2 0-2 /HPF WBC Urine 6-10 0-5 /HPF Squamous Epithelial Cell Urine 0-2 0-2 /HPF Bacteria Urine None Seen None Seen Hyaline Casts Urine 0-2 0-2 /LPF REASON FOR VISIT annual visit Medications Medication SIG (Take, Route, Frequency, Duration) Notes Start Date End Date Status Carbidopa-Levodopa ER 50-200 MG 1 tablet as needed Orally hs Active Tamsulosin HCl 0.4 MG TAKE ONE CAPSULE B Y MOUTH TWICE A DAY Active Omeprazole 40 MG 1 capsule 30 minutes before morning meal Orally Once a day Active Gabapentin 300 MG 2 capsules once a da y for 90 days Active Carbidopa-Levodopa 25-100 MG 2 tablet as needed Orally 5 times a day Active Ambien 5 MG 1 tablet at bedtime Orally Once a day for 10 days 08/28/2019 Not-Taking Melatonin 5 MG 1 tablet in the evening Orally Once a day for 30 day(s) Active Finasteride 5 MG 1 tablet Orally Once a day Active Mirtazapine 7.5 MG 1tablets at bedtime Orally Once a day Active Sildenafil Citrate 100 MG TAKE 1/2 TABLE T BY MOUTH ONCE DAILY NEEDED for 60 Active Cyclobenzaprine HCl 5 MG 1 tablet at bed time as needed Orally twice a day for 10 days 03/15/2025 Not-Taking Immunizations Vaccine Route Administration Date Status Comme nts Fluarix Quadrivalent - 150 IM Intramuscular 04/12/2025 Adm inistered Social History Tobacco Use: Social [...] Never (0 point) Points 1 Interpretation Negative Vital Signs Blood pressure systolic 112 mm Hg 04/12/20 25 Blood pressure diastolic 60 mm Hg 025 Height 70 in 04/12/2025 Weight 164 lbs 04/12/2025 BMI 23.53 kg/m2 04/12/2025 weight is down 2 pounds [facility] 03-15-25 Encounters Encounter Location Date Provider Diagnosis Galileo Gore MD [address] [place] [address] [place] [phone] 04/12/2025 Galileo Gore Annual physical exam Z00.00 ; Tubular adenoma of colon D12.6 ; Parkinson's disease without dyskinesia, unspecified whether manifestations fluctuate G20.A1 ; Encounter for administration of vaccine Z23 ; Elevated BUN R79.9 ; Prediabetes R73.09 ; Elevated PSA R97.20 ; Reflux gastritis K29.60 ; Colon cancer screening Z12.11 and Depression screening Z13.31 Assessments Encounter Date Diagnosis (ICD Code) Assessment Notes Treatment Notes Treatment Clinical Notes Section Notes 04/12/2025 Annual physical exam (ICD-10 - Z00.00) labs reviewed and discussed with patient 04/12/2025 Tubular adenoma of colon (ICD-10 - D12.6) had colonoscopy 2 years ago 04/12/2025 Parkinson's disease without dyskinesia, unspecified whether manifestations fluctuate (ICD-10 - G20.A1) going to get surgery in 2 weeks is going to check with surgeon to see if he should get a covid vaccination before his surgery 04/12/2025 Encounter for administration of vaccine (ICD-10 - Z23) regular Flu vaccine adminsitered 04/12/2025 Elevated BUN (ICD-10 - R79.9) will continue to monitor 04/12/2025 Prediabetes (ICD-10 - R73.09) stable, will continue to monitor, no need for medication at this time 04/12/2025 Elevated PSA (ICD-10 - R97.20) stable 04/12/2025 Reflux gastritis (ICD-10 - K29.60) doing well, will continue current regiment 04/12/2025 Colon cancer screening (ICD-10 - Z12.11) guaiac negative 04/12/2025 Depression screening (ICD-10 - Z13.31) negative screen Plan Of Treatment Medication Medication Name Sig Start Date Stop Date Notes Carbidopa-Levodopa ER 50-200 MG 1 tablet as needed Orally hs Tamsulosin HCl 0.4 MG TAKE ONE CAPSULE B Y MOUTH TWICE A DAY Omeprazole 40 MG 1 capsule 30 minutes before morning meal Orally Once a day Finasteride 5 MG 1 tablet Orally Once a day Treatment Notes Assessment Notes Annual physical exam labs reviewed and d iscussed with patient Tubular adenoma of colon had colonoscopy 2 years ago Parkinson's disease without dyskinesia, unspecified whether manifestations fluctuate going to get surgery in 2 weeks is going to check with surgeon to see if he should get a covid vaccination before his surgery Encounter for administration of vaccine regular Flu vaccine adminsitered Elevated BUN will continue to mon itor Prediabetes stable, will continu e to monitor, no need for medication at this time Elevated PSA stable Reflux gastritis doing well, will con tinue current regiment Colon cancer screening guaiac negative Depression screening negative screen Next Appt Details Follow Up: 3 Months, Reason: Provider Name:Galileo marcano, 07/13/2025 10:15:00 AM, [address] [place] [address], [address], [phone], Provider Name:Galileo marcano, 04/09/2026 07:45:00 AM, [address] [place] [address], [address], [phone], Provider Name:Galileo marcano, 04/15/2026 10:30:00 AM, [address] [place] [address], [address], [phone], Progress Notes * Wellington PLUMMER EDOB:1960 (64 yo M)Acc No.[id number]:04/12/2025 Progress Notes Patient: Wellington MICHAUD Provider: Jade Gore MD :1960 A ge:64 Y S ex:Male Date:04/12/2025 Address:[id number] Subjective: * Chief Complaints: * 1 . Annual visit. * HPI: D epression Screening: PHQ-9 L ittle interest or pleasure in doing things N ot at all, F eeling down, depressed, or hopeless N ot at all, T rouble falling or staying asleep, or sleeping too much N ot at all, F eeling tired or having little energy N ot at all, P oor appetite or overeating N ot at all, F eeling bad about yourself or that you are a failure, or have let yourself or your family down N ot at all, T rouble concentrating on things, such as reading the newspaper or watching television N ot at all, M oving or speaking so slowly that other people could have noticed; or the opposite, being so fidgety or restless that you have been moving around a lot more than usual N ot at all, T houghts that you would be better off or of hurting yourself in some way N ot at all, T otal Score 0 . I nterpretation and Intervention D epression Screening Findings N egative, F ollow-Up for Depression : review of PHQ-9 found negative result, no follow-up needed. C ommunication Needs: Communication Needs D oes the patient have a hearing impairment N o, D oes the patient have a vision impairment? Y es, I f yes, what is the vision impairment? G lasses, D oes the patient have a cognition impairment? N o. F all Risk: History H ave you had any falls with injury in the past year? N o, H ave you had two or more falls in the past year? N o. S MATY Questions: SDOH Questions I n the past year have you been worried about losing housing? N o, I n the past year have you or any family members you live with been unable to get any of the following when it was really needed? Check all that apply: N one. S ymptom(s): patient is a 64 yo male her for annual visit with review of recent labs and follow up of chronic issues g etting ready to have deep brain stimulation. may 04. * ROS: G eneral/Constitutional: Change in appetite d enies. C hills d enies. F ever d enies. O phthalmologic: Blurred vision d enies. D ischarge d enies. P ain d enies. E NT: Decreased hearing d enies. S ore throat d enies.?Swollen glands d enies. E ndocrine: Cold intolerance d enies. E xcessive thirst d enies. H eat intolerance d enies. W eight loss d enies. R espiratory: Cough d enies. S hortness of breath at rest d enies. S hortness of breath with exertion d enies. W heezing d enies. C ardiovascular: Chest pain at rest d enies. C hest pain with exertion?denies. I rregular heartbeat d enies. S hortness of breath d enies. ? G astrointestinal: Abdominal pain d enies. C hange in bowel habits d enies. D iarrhea d enies. N ausea d enies. R ectal bleeding d enies. V omiting d enies . G enitourinary: Blood in urine d enies. D ifficulty urinating d enies. F requent urination d enies. M usculoskeletal: Painful joints d enies. W eakness d enies. ? S kin: Dry skin d enies. I tching d enies. D enies?Mole(s), changes in moles, new moles or any lesions of concern. D enies P hotosensitivity. R james d enies. N eurologic: Dizziness d enies. F ainting d enies. H eadache?denies. * Medical History: c olonoscopy 09/2011 due in 5 years; colonoscopy done 06/30/[address] Pena - repeat 5 years(2021) Colonoscopy 10/21/22 repeat 5 years, Parkinson disease, Parkinson disease. * Family History: F ather: 76 yrs, diagnosed with Cancer. M other: 82 yrs. 3 brother(s) . 1 son(s) , 2 daughter(s) - healthy. . Mother-Natural causes, Denies mental health/substance abuse family history, Denies mental health/substance abuse family history, Denies mental health/substance abuse family history, No pertinent family medical history, No pertinent family medical history. * Social History: T obacco Use: T obacco Use/Smoking P teresa is a n onsmoker, A dditional Findings: Tobacco Non-User C urrent non-smoker, currently using no form of tobacco. D rugs/Alcohol: A lcohol Screen D id you have a drink containing alcohol in the past year? Y es, H ow often did you have a drink containing alcohol in the past year? M onthly or less (1 point), H ow many drinks did you have on a typical day when you were drinking in the past year? 1 or 2 drinks (0 point), H ow often did you have 6 or more drinks on one occasion in the past year? N ever (0 point), P oints 1 , I nterpretation N egative. M iscellaneous: C affeine: yes, frequency:, 1-2 cups per day. Children: yes. Community involvements: yes. Exercise: no. Home smoke detector use: yes. Housing: owning. Living with: spouse. Marital status: . Occupation: works full-time. Pets: cats: dogs:1 dog. * Medications: T aking Mirtazapine 7.5 MG Tablet 1tablets at bedtime Orally Once a day , Taking Melatonin 5 MG Tablet 1 tablet in the evening Orally Once a day , Taking Sildenafil Citrate 100 MG Tablet TAKE 1/2 TABLET BY MOUTH ONCE DAILY NEEDED , Taking Finasteride 5 MG Tablet 1 tablet Orally Once a day , Taking Carbidopa-Levodopa 25-100 MG Tablet 2 tablet as needed Orally 5 times a day , Taking Gabapentin 300 MG Capsule 2 capsules once a day , Taking Carbidopa-Levodopa ER 50-200 MG Tablet Extended Release 1 tablet as needed Orally hs , Taking Omeprazole 40 MG Capsule Delayed Release 1 capsule 30 minutes before morning meal Orally Once a day , Taking Tamsulosin HCl 0.4 MG Capsule TAKE ONE CAPSULE BY MOUTH TWICE A DAY , Not- Taking/PRN Cyclobenzaprine HCl 5 MG Tablet 1 tablet at bedtime as needed Orally twice a day , Not-Taking/PRN Ambien 5 MG Tablet 1 tablet at bedtime Orally Once a day , Medication List reviewed and reconciled with the patient * Allergies: N .K.D.A. Objective: * Vitals: H t: 70, Wt: 164, BMI:23.53, BP:112/60, Wt-k.39. weight is down 2 pounds since 03-15-25. * P ast Orders: L ab:Complete Blood Count Auto Diff (Order Date - 03/22/2025) (Collection Date & Time - 03/22/2025 07:30 AM) Value Reference Range White Blood Count 6.8 4.8-10.8 - X10*3/uL Red Blood Count 4.53 L 4.60-5.80 - X10*6/uL Hemoglobin 14.0 14.0-18.0 - g/dl Hematocrit 42.4 42.0-52.0 - % Mean Corpuscular Volume 93.6 80.0-98.0 - fL Mean Corpuscular Hemoglobin 30.9 27.0-33.0 - pg Mean Corpuscular HGB Conc 33.0 31.0-36.0 - g/ dl Red Cell Distribution Width 13.5 11.0-16.0 - % Platelet Count 201 160-400 - X10*3/uL Mean Platelet Volume 9.5 9.4-12.4 - fL Neutrophils Percent Auto 55.2 45-73 - % Imm Gran Pct Auto 0.3 0.0-0.4 - % Lymphocytes Percent Auto 32.2 20-40 - % Monocytes Percent Auto 6.7 2-11 - % Eosinophils Percent Auto 4.4 H 0-4 - % Basophils Percent Auto 1.2 0-2 - % NRBC Pct Auto 0.0 0.0-0.2 - /100WBC Neutrophils Absolute Auto 3.7 2.0-8.3 - x10* 3/uL Imm Gran Abs Auto 0.02 0.00-0.03 - X10*3/uL Lymphocytes Absolute Auto 2.2 1.2-4.9 - X10* 3/uL Monocytes Absolute Auto 0.5 0.1-1.2 - X10*3/ uL Eosinophils Absolute Auto 0.3 0.0-0.4 - X10* 3/uL Basophils Absolute Auto 0.1 0.0-0.2 - X10*3/ uL NRBC Abs Auto 0.000 0.0-0.012 - X10*3/uL L ab:Lipid Panel (Order Date - 03/22/2025) (Collection Date & Time - 03/22/2025 07:30 AM) Value Reference Range Triglycerides 107 <150 - mg/dL Cholesterol 201 H <200 - mg/dL LDL Cholesterol Calculated 127 H <100 - mg/dL HDL Cholesterol 53 >40 - mg/dL L ab:PSA,Total (Free>4and<10) (Order Date - 03/22/2025) (Collection Date & Time - 03/22/2025 07:30 AM) Value Reference Range PSA,Total (Free>4and<10) 1.16 0.00-4.00 - ng/ mL L ab:Hemoglobin A1c (Order Date - 03/22/2025) (Collection Date & Time - 03/22/2025 07:30 AM) Value Reference Range Hemoglobin A1c % 5.4 <6.0 - % Estimated Average Glucose 108 - mg/dL L ab:Comprehensive Met. Panel (Order Date - 03/22/2025) (Collection Date & Time - 03/22/2025 07:30 AM) Value Reference Range Sodium 141 135-145 - mmol/L Bilirubin Total 0.6 0.0-1.0 - mg/dL Aspartate Amino Transferase 25 5-37 - U/L Alanine Aminotransferase 10 0-40 - U/L Total Protein 6.9 6.5-8.0 - g/dL Albumin Level 4.6 3.5-5.0 - g/dL Alkaline Phosphatase 78 39-117 - U/L Potassium 4.6 3.3-5.1 - mmol/L Chloride 106 96-108 - mmol/L Carbon Dioxide 28 22-29 - mmol/L Anion Gap 12 12-20 - Blood Urea Nitrogen 26 H 9-16 - mg/dL Creatinine 1.08 0.5-1.4 - mg/dL Estimated Glomerular Filt Rate > 60 - Glucose Random 76 60-115 - mg/dL Calcium 9.1 8.4-10.2 - mg/dL * Examination: G eneral Examination: GENERAL APPEARANCE: w ell developed, well nourished, in no acute distress. HEAD: n ormocephalic, atraumatic. EYES: p upils equal, round, reactive to light and accommodation, sclera non-icteric. EARS: n ormal. ORAL CAVITY: m [place] moist. THROAT: c lear. NECK/THYROID: n mary ellen supple, full range of motion, no cervical lymphadenopathy, no bruits. SKIN: w arm and dry, no suspicious lesions. HEART: r egular rate and rhythm, S1, S2 normal, no murmurs.? LUNGS: c lear to auscultation bilaterally. ABDOMEN: s oft, nontender, nondistended, bowel sounds present, normal, no organomegaly , no masses palpable. RECTAL EXAM: n ormal tone, no external hemorrhoids, no masses palpable, prostate normal, stool guaiac negative. MALE GENITOURINARY: c ircumcised, no testicular mass, testes descended bilaterally. EXTREMITIES: n o clubbing, cyanosis, or edema. NEUROLOGIC: n onfocal, motor strength normal upper and lower extremities, sensory exam intact. Assessment: * Assessment: 1. A nnual physical exam - Z00.00 (Primary) 2 . T ubular adenoma of colon - D12.6 3 . P arkinson's disease without dyskinesia, unspecified whether manifestations fluctuate - G20.A1 4 . E ncounter for administration of vaccine - Z23 5. E levated BUN - R79.9 6 . P rediabetes - R73.09 ?7. E levated PSA - R97.20 8 . R eflux gastritis - K29.60 ?9. C olon cancer screening - Z12.11 1 0. D epression screening - Z13.31? Plan: * Treatment: 2. T ubular adenoma of colon Notes: had colonoscopy 2 years ago 3. P arkinson's disease without dyskinesia, unspecified whether manifestations fluctuate Continue Carbidopa-Levodopa ER Tablet Extended Release, 50-200 MG, 1 tablet as needed, Orally, hs.? L AB: UA ClnCatch+Micro w/rflx Cult (Collection Date & Time - 04/12/2025 08:30 AM) Notes: going to get surgery in 2 weeks is going to check with surgeon to see if he should get a covid vaccination before his surgery 4. E ncounter for administration of vaccine Notes: regular Flu vaccine adminsitered 5. E levated BUN L AB: Blood Urea Nitrogen (Collection Date & Time - 04/12/2025 08:30 AM) Notes: will continue to monitor 6. P rediabetes L AB: Microalbumin, Random (Collection Date & Time - 04/12/2025 08:30 AM) Notes: stable, will continue to monitor, no need for medication at this time 7. E levated PSA Continue Finasteride Tablet, 5 MG, 1 tablet, Orally, Once a day; C ontinue Tamsulosin HCl Capsule, 0.4 MG, TAKE ONE CAPSULE BY MOUTH TWICE A DAY. Notes: stable 8. R eflux gastritis Continue Omeprazole Capsule Delayed Release, 40 MG, 1 capsule 30 minutes before morning meal, Orally, Once a day. Notes: doing well, will continue current regiment 9. C olon cancer screening L AB: Occult Blood, Stool, Guaiac (Collection Date & Time - 04/12/2025) N egative Value Reference Range O ccult Blood, Stool, Guaiac Neg Notes: guaiac negative??10.?Depression screening? Notes: negative screen?? * Immunizations: Fluarix Quadrivalent - 150 : 0.5 mL (Dose No:1) (Route: Intramuscular) given by Marlena Mehta , Office Staff on Right Deltoid * Procedure Codes: 3 6415 VENIPUNCT, ROUTINE*, 42340 FLU VACCINE NO PRESERV 3 & >, 04835 IMMUNIZATION ADMIN, 63908 TEST FOR BLOOD, FECES * Follow Up: 3 Months * * The named appointment provid er may or may not be the originator of this progress note, and it is not deemed complete until electronically signed by the appointment provider. Sign off status: Pending * Provider: Jade Gore MD Date: 04/12/2025 Generated for Rachel arango/Inge/Anujitting on: 04/12/2025 04:49 PM EDT History and Physical Notes * HPI (History of Present Illness) Category Sub-Category Detail Notes Category Not es Symptom(s) patient is a 64 yo male her for annual visit with review of recent labs and follow up of chronic issues getting ready to have deep brain stimulation. may 04 Depression Screening PHQ-9 Little inte rest or pleasure in doing things: Not at all Feeling down, depressed, or hopeless: No t at all Trouble falling or staying asleep, or sl eeping too much: Not at all Feeling tired or having little energy: N ot at all Poor appetite or overeating: Not at all Feeling bad about yourself o r that you are a failure, or have let yourself or your family down: Not at all Trouble concentrating on thi ngs, such as reading the newspaper or watching television: Not at all Moving or speaking so slowly that other people could have noticed; or the opposite, being so fidgety or restless that you have been moving around a lot more than usual: Not at all Thoughts that you would be b tyra off or of hurting yourself in some way: Not at all Total Score: 0 Interpretation and Intervention Depression Светлана lane Findings: Negative Follow-Up for Depression: : review of PH Q-9 found negative result, no follow-up needed SDOH Questions SDOH Questions In the past year have you been worried about losing housing?: No In the past year have you or any family members you live with been unable to get any of the following when it was really needed? Check all that apply:: None Fall Risk History Have you had any falls with injury i n the past year?: No Have you had two or more falls in the st year?: No Communication Needs Communication Needs Does the patient have a hearing impairment: No Does the patient have a vision impairmen t?: Yes If yes, what is the vision impairment?: Glasses Does the patient have a cognition impair ment?: No Examination Category Sub-Category Detail Notes Category Not es General Examination GENERAL APPEARANCE: well dev eloped, well nourished, in no acute distress HEAD: normocephalic, atrau matic EYES: pupils equal, round, reactive to light and accommodation, sclera non-icteric EARS: normal THROAT: clear NECK/THYROID: neck supple, full ra nge of motion, no cervical lymphadenopathy, no bruits HEART: regular rate and rhy thm, S1, S2 normal, no murmurs LUNGS: clear to auscultatio n bilaterally ABDOMEN: soft, nontender, non distended, bowel sounds present, normal, no organomegaly , no masses palpable NEUROLOGIC: nonfocal, motor stre ngth normal upper and lower extremities, sensory exam intact SKIN: warm and dry, no zay picious lesions EXTREMITIES: no clubbing, cyanosi s, or edema MALE GENITOURINARY: circumcised, no test icular mass, testes descended bilaterally RECTAL EXAM: normal tone, no exte rnal hemorrhoids, no masses palpable, prostate normal, stool guaiac negative ORAL CAVITY: mucosa moist
[2025-04-12 13:00] LABS: Appearance Urine Clear; Glucose Urine UA Negative (Negative); PH 6.5 (5.0-9.0); Specific Gravity - Urine 1.025 (1.005-1.025); UMIC TRIGGER UACC YES
[2025-04-12 13:05] LABS: UACC Culture Trigger YES
[2025-04-12 13:14] LABS: Blood Urea Nitrogen 21 mg/dL (9-16)
[2025-04-12 14:17] LABS: Microalbum/Creatinine Ratio Ur 7.4 ug/mg cr (<30)
--- OUTSIDE RECORDS SUMMARY | 2025-04-12 16:48 | XMS_ITS | Patient Health Record ---
Author Organization [facility] Address [address] [place] [address] Care Team Providers Care Sheeter Helper Name Role Phone Bao ROSEN, Galileo Primary Care Provider Mj Bui [phone] Allergies Allergen (clinical drug ingredient) Drug/Non Drug Allergy documented on EMR Reaction Allergy Type Onset Date Status acetaminophen / oxycodone Percocet N/V Drug Allergy Active Results Component Value Reference Range Notes Pathology Reviewed date:12/30/2024 04:19:45 PM Interpretation: Performing Lab:[facility], [address] [place] [id number] Notes/Report: Reason For Referral No Information Medications [...] Problem Status W/U Status Risk Notes Problem [id number] Encounter for screening for malignant neoplasm of colon (Z12.11) Active confirmed Problem 977137084 History of adenomatous polyp of colon (Z86.010) Active confirmed Problem History of polyp of colon (situation) (750152840) Personal history of colonic polyps (Z86.010) Active confirmed Problem Diverticular disease of colon (363274747) Diverticulosis of large intestine without perforation or abscess without bleeding (K57.30) Active confirmed Problem 272006260 Preprocedural examination (Z01.818) Active confirmed Problem Abnormal upper gastrointestinal barium series (R93.3) Active confirmed Problem Benign neoplasm of stomach (32491375) Gastric polyps (K31.7) Active confirmed Problem Gastritis (8433922) Gastritis (K29.70) Active confirmed Problem Irritable bowel syndrome (49760202) Irritable bowel syndrome with both constipation and diarrhea (K58.0) Active confirmed Problem Generalized abdominal pain (132994010) Abdominal discomfort, generalized (R10.84) Active confirmed Encounters Encounter Location Date Provider Diagnosis [facility] Outpatient [address] [place], [place] [phone] 05/29/2024 Mj Pena Hiatal hernia K44.9 ; Gastritis K29.70 ; Gastric polyps K31.7 ; Abnormal finding on GI tract imaging R93.3 and Abdominal pain R10.9 [facility] [address] [facility] [address] [place] [phone] 04/13/2024 Mj Pena [facility] [address] [place] [address] 05/08/2024 Mj Pena [facility] [address] [place] [address] 05/19/2024 Mj Pena [facility] [address] [place] [address] 05/23/2024 Mj Pena [facility] [address] [place] [address] 01/02/2025 Mj Pena Assessments Encounter Date Diagnosis [...] Date Coverage End Date [facility] [address] [place] [address] [id number] KRYSTAL PLUMMER Self - patient is the insured Medical (General) History Medical History History ICD Code Denies [place],DM,CVA,Lung disease,renal dise ase Swallowing evaluation--had a n EGD at [facility] in 01/2017--told it was negative--having a F/U with the swallowing/speech center at [facility] Colonoscopy in 09/2011--small tubular adenoma, diverticulosis, and internal hemorrhoids Parkinson's Negative colonoscopy in 06/2017 and 10/19 22 Surgical History Surgery Date(Month/Year) He describes 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
--- OUTSIDE RECORDS SUMMARY | 2025-04-12 16:48 | XMS_ITS | Encounter Summary ---
Author Organization [facility] Address [address] [place] [address] Phone Care Team Providers Care Home Lending Officer Name Role Phone Galileo Gore MD Primary Care Provider Encounter Details Date Type Department Care Team (Late st Contact Info) Description 11/10/2022 Procedure Pass [facility] Cardiac US [address] [place] [address] Social History Tobacco Use Types Packs/Day Years [...] (Latest Contact Info) Description 05/22/2024 Procedure Pass [facility] - MRI [address] [facility], 6th [place] [address] 09/11/2024 Procedure Pass [facility] MRI, Lunder [address] [facility], 4th [place] [address] 04/04/2025 Procedure Pass MRI, [facility] [address] [place] [address] 04/20/2025 11:45 AM EDT Pre-Admission Testing [facility] Pre-Procedure Evaluation Department [place] [address] [facility] Admitting, Provider 04/26/2025 12:00 PM EDT Appointment MRI, [facility] [address] [place] [address] Shawna Lopez PA-C [address] [place] [phone] [email or web address] 05/04/2025 Procedure Pass [facility] PERIOPERATIVE DEPT [address] [place] [phone] 05/04/2025 7:00 AM EDT Appointment [facility] MRI, [address] [facility], 4th [place] [address] Mj Young MD, PhD [address] [place] [phone] [email or web address] 05/04/2025 7:45 AM EDT Hospital Encounter [facility] PERI[facility]IVE DEPT [address] [place] [phone] Mj Young MD, PhD [address] [place] [phone] [email or web address] 05/04/2025 7:45 AM EDT - 05/04/2025 2:50 PM EDT Surgery [facility] PERI[facility]IVE DEPT [address] [place] [phone] Mj Young MD, PhD [address] [place] [phone] [email or web address] INSERTION STIMULATOR DEEP BRAIN 05/10/2025 Procedure Pass [facility] Periop Dept [address] [place] [address] 05/10/2025 [facility] [address] [place] [address] 05/11/2025 12:45 PM EDT Pre-Admission Testing [facility] Pre-Procedure Evaluation Department [place] [address] [facility] Admitting, Provider 05/18/2025 Procedure Pass [facility] PERIOPERATIVE DEPT [address] [place] [phone] 05/18/2025 2:39 PM EDT Hospital Encounter [facility] PERIOPER[facility]IVE DEPT [address] [place] [phone] Mj Young MD, PhD [address] [place] [phone] [email or web address] 05/18/2025 2:39 PM EDT - 05/18/2025 5:01 PM EDT Surgery [facility] PERIOPER[facility]IVE DEPT [address] [place] [phone] Mj Young MD, PhD [address] [place] [phone] [email or web address] PLACEMENT PULSE GENERATOR [email or web address] 05/21/2025 11:30 AM EDT Telephone [facility] Neurosurgery [address] [place] [address], 7th Floor, [address] [place] [address] Shawna Lopez PA-C [address] [place] [phone] [email or web address] 11/05/2025 9:45 AM EDT Appointment [facility] - MRI [address] [place] [address], 6th [place] [address] Keri Smith, MICHAEL [address] [place] [phone] [email or web address] 11/05/2025 1:00 PM EDT Office Visit [facility] Cardiovascular Medicine [address] [place] [address], 5th Floor, [address] [place] [address] Keri Smith, COOK SUPERVISOR [address] [facility] [address] [place] [address] [email or web address] Scheduled Procedures Name Priority Associated Diagnoses Date/Ti [...] on filedocumented in this encounter Care Teams Home Lending Officer Relationship Specialty Start Date End Date Galileo Gore MD [address] [place] [address] [place] [address] PCP - General 01/30/14 documented as of this encounter Additional Source Comments The information contained in this document represents components of the legal health record. It is not the complete legal health record.[facility]
--- OUTSIDE RECORDS SUMMARY | 2025-04-12 16:48 | XMS_ITS | Encounter Summary ---
Author Organization [facility] Address [address] [place] [address] Care Team Providers Care Shine Worker Name Role Phone Galileo Gore Primary Care Provider [phone] Encounter Details Date Type Department Care Team (Late st Contact Info) Description 06/30/2022 Continuum Analyticst Message [facility] [address] [place] [phone] Surinder Valenzuela MD [address] [place] [address] [phone] requesting 90 day prescription Social History Tobacco Use Types Packs/Day Years [...] encounter Miscellaneous Notes * Telephone Encounter - Surinder Valenzuela MD - 06/30/2022 1:39 PM ESTFrom: [place] Daniel To: Physician Surinder Valenzuela Sent: 06/30/2022 1:16 PM EST Subject: requesting 90 day prescription Would it be possible to get a 90 prescription of my Modafinil? documented in this encounter Plan of Treatment Upcoming Encounters Date Type Department Care Team (Late st Contact Info) Description 06/18/2025 8:00 AM EST Office Visit [facility] [address] [place] [phone] Mindy German NP [address] [place] [phone] 07/04/2025 8:00 AM EST Office Visit [facility] [address] [place] [phone] Mindy German NP [address] [place] [address] 07/18/2025 8:00 AM EST Office Visit [facility] [address] [place] [phone] Mindy German NP [address] [place] [address] 10/18/2025 2:30 PM EDT Procedure visit [facility] [address] [place] [address] Surinder Valenzuela MD [address] [place] [phone] documented as of this encounter Visit Diagnoses Not on filedocumented in this encounter Care Teams Shine Worker Relationship Specialty Start Date End Date Galileo Gore [address] [place] [address] [place] [address] PCP - General Internal Medicine 02/08/20 documented as of this encounter
--- OUTSIDE RECORDS SUMMARY | 2025-04-12 16:48 | XMS_ITS | Encounter Summary ---
Author Organization [facility] Address [address] [place] [address] Care Team Providers Care Placement Secretary Name Role Phone Cornellrobby Galileo Primary Care Provider [phone] Reason for Visit * Reason Onset Date Comments Change in location of Fluoroscopy 09/16/2022 Encounter Details Date Type Department Care Team (Late st Contact Info) Description 09/16/2022 Telephone [facility] [address] [place] [address] [phone] Telephone Intake, Staff Change in location of [...] AM EST Faxed referral to Kerwin Alonzo [place] at [phone] documented in this encounter Plan of Treatment Upcoming Encounters Date Type Department Care Team (Late st Contact Info) Description 06/18/2025 8:00 AM EST Office Visit [facility] [address] [place] [phone] Mindy German NP [address] [place] [phone] 07/04/2025 8:00 AM EST Office Visit [facility] [address] [place] [address] Mindy German NP [address] [place] [phone] 07/18/2025 8:00 AM EST Office Visit [facility] [address] [place] [phone] Mindy German NP [address] [place] [phone] 10/18/2025 2:30 PM EDT Procedure visit [facility] Neurology [address] [address] Surinder Valenzuela MD [address] [place] [phone] documented as of this encounter Visit Diagnoses Not on filedocumented in this encounter Care Teams Placement Secretary Relationship Specialty Start Date End Date Galileo Gore [address] [place] [address] [place] [address] PCP - General Internal Medicine 02/08/20 documented as of this encounter
--- OUTSIDE RECORDS SUMMARY | 2025-04-12 16:49 | XMS_ITS | Encounter Summary ---
Author Organization [facility] Address [address] [place] [address] Care Team Providers Care Law Tutor Name Role Phone Galileo Gore Primary Care Provider [phone] Reason for Visit * Reason Onset Date Comments Med Refill 04/08/2025 Encounter Details Date Type Department Care Team (Late st Contact Info) Description 04/08/2025 Refill [facility] [address] [place] [address] Surinder Valenzuela MD [address] [place] [address] Social History Tobacco Use Types Packs/Day Years [...] AM EST documented as of this encounter Plan of Treatment Upcoming Encounters Date Type Department Care Team (Late st Contact Info) Description 06/18/2025 8:00 AM EST Office Visit [facility] [address] [place] [address] iMndy German NP [address] [place] [address] 07/04/2025 8:00 AM EST Office Visit [facility] [address] [place] [phone] Mindy German NP [address] [place] [address] 07/18/2025 8:00 AM EST Office Visit [facility] [address] [place] [phone] Mindy German NP [address] [place] [address] 10/18/2025 2:30 PM EDT Procedure visit [facility] [address] [place] [address] Surinder Valenzuela MD [address] [place] [phone] documented as of this encounter Visit Diagnoses Not on filedocumented in this encounter Care Teams Law Tutor Relationship Specialty Start Date End Date Galileo Gore [address] [place] [address] [place] [address] PCP - General Internal Medicine 02/08/20 documented as of this encounter
--- OUTSIDE RECORDS SUMMARY | 2025-04-12 16:49 | XMS_ITS | Clinical Summary ---
Author Organization [facility] Address [address] [place] [address] Phone Care Team Providers Care Metal Can Inspector Name Role Phone Galileo Gore MD Primary Care Provider Allergies Active Allergy Reactions Criticality Noted Date Comments Gadoterate Meglumine Hives Low 07/04/2018 Single hive was found on pt's back after MRI was completed. Hive was itchy. Pt had no other issues. Pt was monitored by Rad. Pt was given instructions. 13 hour prep will be need for prior exams. Medications carbidopa-levod opa (SINEMET) 25-100 mg per tablet Take 2 tablets by mouth every 3 (three) hours. Active sildenafiL (VIAGRA) 100 mg tablet Take 50 mg by mouth daily as needed for erectile dysfunction. Active latanoprost (XALATAN) 0.005 % ophthalmic solution Place 1 drop into each eye daily. Active gabapentin (NEURONTIN) 300 MG capsule Take 600 mg by mouth every evening. Active tamsulosin (FLOMAX) 0.4 mg Cap Take 0.8 mg by mouth nightly at bedtime. Active finasteride (PROSCAR) 5 mg tablet Take 5 mg by mouth daily. Active brimonidine (ALPHAGAN P) 0.1 % Drop Place 1 drop into each eye 2 (two) times a day. Active melatonin 5 mg Tab Take 10 mg by mouth nightly at bedtime. Active modafiniL (PROVIGIL) 100 MG tablet Take 100 mg by mouth daily. Active mirtazapine (REMERON) 7.5 MG tablet Take 7.5 mg by mouth nightly at bedtime. Active carbidopa-levod opa (SINEMET CR) 50-200 mg per CR tablet Take 1 tablet by mouth nightly at bedtime. 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 Encounters Date Type Department Care Team Description 04/04/2025 Orders Only [facility] Neurosurgery [address] [facility], 7th Floor, [address] [place] [address] Shawna Lopez PA-C Parkinson's disease with dyskinesia and fluctuating manifestations (Primary Dx); Allergic reaction to contrast material, subsequent encounter 03/20/2025 Orders Only [facility] Neurosurgery [address] [facility], 7[address], [address] [place] [address] Shawna Lopez PA-C 03/20/2025 Orders Only [facility] Neurosurgery [address] [facility], [address], [address] [place] [address] Shawna Lopez PA-C 03/01/2025 7:45 AM EDT Office Visit [address] [place] [address] Galileo Gore MD Johndrow, Jennifer, PT Difficulty walking (Primary Dx) 02/06/2025 7:45 AM EDT Office Visit [facility] [address] [address] Galileo Gore MD Johndrow, Jennifer, PT Difficulty walking (Primary Dx) 01/16/2025 7:45 AM EDT Office Visit [address] [place] [address] Surinder Valenzuela MD Johndrow, Jennifer, DEMETRIS Difficulty walking (Primary Dx) from Last 3 Months Social History Tobacco Use Types Packs/Day Years Used Date Smoking Tobacco: Never Smokeless Tobacco: Never Tobacco Cessation:Counseling Given: Not Answered Child or Family Care Answer Date Record ed Do you have problems with on e of the following making it difficult for you to work, study, or receive health care? No 09/05/2024 Education Answer Date Recorded Are you interested in help w ith more adult education (for example, completing high school, GED, job training, learning the [place] language, technical skills, or developing parenting skills)? No 09/05/2024 Are you concerned about learning? Not on file 09/05/2024 No 09/05/2024 Yes 09/05/2024 Food Answer Date Recorded Within the past 6 months we worried whether our food would run out before we got money to buy more. Never True 09/05/2024 Within the past 6 months the food we bought just didn't last and we didn't have enough money to get more. Never True Residential Stability Answer Date Recor ded What is your housing situation today? I have jerome sing 09/05/2024 How many times have you move d in the past 12 months? Zero (I did not move) 09/05/2024 Paying for Meds Answer Date Recorded Do you have trouble paying for medicines? No 09/05/2024 Paying Utility Bills Answer Date Record ed Do you have trouble paying your heating or elect ricity bill? No 09/05/2024 Transportation Answer Date Recorded Has the lack of transportati on kept you from medical appointments or from getting medications? No 09/05/2024 Digital Access Answer Date Recorded No 09/05/2024 Yes 09/05/2024 Do you have reliable internet access at home? Ye s 09/05/2024 Do you have a device (e.g., phone, tablet, computer) with a working camera? Yes 09/05/2024 Sex and Gender Information Value Date Recorded Sex Assigned at Not on file Legal Sex Male 5:04 PM EST Gender Identity Not on file Sexual Orientation Not on file Last Filed Vital Signs Vital Sign Reading Time Taken Comments Blood Pressure 128/62 05/22/2024 1:15 PM EDT Pulse 63 05/22/2024 1:15 PM EDT Temperature - - Respiratory Rate 16 07/04/2018 10:24 AM EST Oxygen Saturation - - Inhaled Oxygen Concentration - - Weight 71.2 kg (157 lb) 05/22/2024 1:15 PM EDT Height 175.3 cm (5' 9 ) 05/22/2024 10:53 AM EDT Body Mass Index 23.18 05/22/2024 10:53 AM EDT Plan of Treatment Upcoming Encounters Date Type Department Care Team (Latest Contact Info) Description 05/22/2024 Procedure Pass [facility] - MRI [address], 6th [place] [address] 09/11/2024 Procedure Pass [facility] MRI, Lunder 4 [address] [facility], 4th [place] [address] 04/04/2025 Procedure Pass [facility], [facility] [address] [place] [address] 04/20/2025 11:45 AM EDT Pre-Admission Testing [facility] Pre-Procedure Evaluation Department Please See [place] [address] [facility] Admitting, Provider 04/26/2025 12:00 PM EDT Appointment [facility], [facility] [address] [place] [address] Shawna Lpoez PA-C [address] [address] [email or web address] 05/04/2025 Procedure Pass [facility] PERIOPERATIVE DEPT [address] [place] [address] 05/04/2025 7:00 AM EDT Appointment [facility] MRI, Lunder [address] [place] [address], 4th [place] [address] Mj Young MD, PhD [address] [address] [email or web address] 05/04/2025 7:45 AM EDT Hospital Encounter [facility] PERIOPERATIVE DEPT [address] [place] [address] Mj Young MD, PhD [address] [place] [phone] [email or web address] 05/04/2025 7:45 AM EDT - 05/04/2025 2:50 PM EDT Surgery [facility] PERIOPERATIVE DEPT [address] [place] [address] Mj Young MD, PhD [address] [place] [address] [email or web address] INSERTION STIMULATOR DEEP BRAIN 05/10/2025 Procedure Pass [facility] Periop Dept [address] [place] [address] 05/10/2025 [facility] [address] [place] [address] 05/11/2025 12:45 PM EDT Pre-Admission Testing [facility] Pre-Procedure Evaluation Department Please See [place] [address] [facility] Admitting, Provider 05/18/2025 Procedure Pass [facility] PERIOPERATIVE DEPT [address] [place] [phone] 05/18/2025 2:39 PM EDT Hospital Encounter [facility] PERIOPERATIVE DEPT [address] [place] [address] Mj Young MD, PhD [address] [place] [phone] [email or web address] 05/18/2025 2:39 PM EDT - 05/18/2025 5:01 PM EDT Surgery [facility] PERIOPERATIVE DEPT [address] [place] [address] Mj Young MD, PhD 15 [facility] [address]45 [place] [address] [email or web address] PLACEMENT PULSE GENERATOR [email or web address] 05/21/2025 11:30 AM EDT Telephone [facility] Neurosurgery [address] [facility], 7th Floor, [address] [place] [address] Shawna Lopez PA-C 15 [facility] [address]45 [place] [address] [email or web address] 11/05/2025 9:45 AM EDT Appointment [facility] - MRI [address], 6th [place] [address] Keri Smith, VASCULAR SURGERY PHYSICIAN [address] [place] [address] [email or web address] 11/05/2025 1:00 PM EDT Office Visit [facility] Cardiovascular Medicine [address], 5th [address], [address] [place] [address] Keri Smith, VASCULAR SURGERY PHYSICIAN [address] [place] [address] [email or web address] Scheduled Procedures Name Priority Associated Diagnoses Date/Ti me INSERTION STIMULATOR DEEP BRAIN Parkinson's disease with dyskinesia and fluctuating manifestations 05/04/2025 7:45 AM EDT MODIFIER MRI Parkinson's disease with dyskinesia and fluctuating manifestations 05/04/2025 7:45 AM EDT PLACEMENT PULSE GENERATOR INFRACLAVICULAR Parkinson's disease, unspecified whether dyskinesia present, unspecified whether manifestations fluctuate 05/18/2025 2:39 PM EDT Health Maintenance Due Date Last Done Comments Adult Td,Tdap Booster 1961 LIPID PANEL 1961 DEPRESSION SCREENING 1973 HEPATITIS C SCREENING 1979 HIV ONE-TIME SCREENING (18-65 YEARS) 1979 COLOGUARD 2006 COLONOSCOPY 2006 COLORECTAL CANCER SCREENING 2006 FIT TEST 2006 FOBT 2006 SIGMOIDOSCOPY 2006 VIRTUAL COLONOSCOPY 2006 ZOSTER VACCINES (1 of 2) 2011 INFLUENZA VACCINE (#1) 2025 , 07/07/2019, 05/17/2018, Additional history exists COVID-19 VACCINE (3 - 2024- season) 2025 09/11/2020, 08/21/2020 PNEUMOCOCCAL VACCINES (50+ years) (3 of 3 - PCV20 or PCV21) 05/30/2025 05/30/2020, 11/16/2017 RSV VACCINE (1 - 1-dose 75+ series) 2036 SMOKING STATUS SCREENING (Once After 26 Yrs) Completed 05/22/2024 HEPATITIS A VACCINES Aged Out No long er eligible based on patient's age to complete this topic HIB VACCINES Aged Out No longer eligi ble based on patient's age to complete this topic MENINGOCOCCAL VACCINES (ACWY) Aged Out No longer eligible based on patient's age to complete this topic MENINGOCOCCAL VACCINES (B) Aged Out N o longer eligible based on patient's age to complete this topic Medical Devices Not on file Insurance [facility] PPO BLUE CROSS OUT OF STATE PPO BLUE CROSS OUT OF STATE PPO BLUE CROSS OUT OF [facility] PPO BLUE CROSS OUT OF STATE PPO BLUE CROSS OUT OF STATE PPO BLUE CROSS OUT OF STATE PPO BLUE CROSS OUT OF STATE PPO BLUE CROSS OUT OF STATE PPO [employer] Care Teams Metal Can Inspector Relationship Specialty Start Date End Date Galileo Gore MD [address] [place] [address] Dr [place] [id number] PCP - General 01/30/14 Additional Source Comments The information contained in this document represents components of the legal health record. It is not the complete legal health record.[facility]
--- OUTSIDE RECORDS SUMMARY | 2025-04-12 16:49 | XMS_ITS | Encounter Summary ---
Author Organization [facility] Address [address] [place] [address] Care Team Providers Care Active Directory Specialist Name Role Phone Galileo Gore Primary Care Provider [phone] Encounter Details Date Type Department Care Team (Late st Contact Info) Description 04/09/2025 myChart Message [facility] [address] [place] [address] Surinder Valenzuela MD [address] [place], [place] [phone] Remeron Social History Tobacco Use Types Packs/Day Years [...] Office Visit [facility] [address] [place] [address] [phone] Mindy German NP [address] [place], [place] [phone] 07/04/2025 8:00 AM EST Office Visit [facility] [address] [place] [address] Mindy German NP [address] [place] [address] 07/18/2025 8:00 AM EST Office Visit [facility] [address] [place] [address] Mindy German NP [address] [place] [address] 10/18/2025 2:30 PM EDT Procedure visit [facility] Neurology [address] [address] Surinder Valenzuela MD [address] [place] [phone] documented as of this encounter Visit Diagnoses Not on filedocumented in this encounter Care Teams Active Directory Specialist Relationship Specialty Start Date End Date Galileo Gore [address] [place] [address] [place] [address] PCP - General Internal Medicine 02/08/20 documented as of this encounter
--- OUTSIDE RECORDS SUMMARY | 2025-04-12 16:49 | XMS_ITS | Encounter Summary ---
Author Organization [facility] Address [address] [place] [address] Care Team Providers Care Network Planner Name Role Phone Galileo Gore Primary Care Provider [phone] Reason for Visit * Reason Comments Med Refill Encounter Details Date Type Department Care Team (Late st Contact Info) Description 04/07/2025 Refill [facility] Neurology Clinic [address] [place], [place] [phone] Surinder Valenzuela MD [address] [place], [place] [phone] Social History Tobacco Use Types Packs/Day Years [...] Description 06/18/2025 8:00 AM EST Office Visit [facility]rology Clinic [address] [place], [place] [phone] Mindy German NP [address] [place], [place] [phone] 07/04/2025 8:00 AM EST Office Visit [facility] Clinic [address] [place] [address] Mindy German NP [address] [place] [address] 07/18/2025 8:00 AM EST Office Visit [facility] [address] [place] [address] Mindy German NP [address] [place] [address] 10/18/2025 2:30 PM EDT Procedure visit [facility] [address] [place] [phone] Surinder Valenzuela MD [address] [place] [phone] documented as of this encounter Visit Diagnoses Not on filedocumented in this encounter Care Teams Network Planner Relationship Specialty Start Date End Date Galileo Gore [address] [place] [address] [place] [address] PCP - General Internal Medicine 02/08/20 documented as of this encounter
--- OUTSIDE RECORDS SUMMARY | 2025-04-12 16:49 | XMS_ITS | Clinical Summary ---
Author Organization [facility] Address [address] [place] [address] Care Team Providers Care Adult Manager Name Role Phone Galileo Gore Primary Care Provider [phone] Allergies Active Allergy Reactions Criticality Noted Date Comments Oxycodone-Acetaminophen Unknown 09/12/2021 Medications gabapentin (NEURONTIN) 300 mg capsule Take 600 mg by mouth every night. 0 Active latanoprost (XALATAN) 0.005% ophthalmic solution Instill 1 drop into both eyes daily. 0 Active sildenafiL (VIAGRA) 100 mg tablet Take 0.5 tablets by mouth daily as needed. 0 Active tamsulosin (FLOMAX) 0.4 mg capsule Take 1 capsule by mouth 2 times daily after meals. 0 Active finasteride (PROSCAR) 5 mg tablet Take 5 mg by mouth daily. Active melatonin 5 mg capsule Take 5 mg by mouth every night. Active omeprazole (PriLOSEC) 40 mg capsule Take 40 mg by mouth once a day. Active brimonidine (ALPHAGAN) 0.2% ophthalmic solution Instill 1 drop into both eyes 2 times a day. 4 Active modafiniL (PROVIGIL) 100 mg tablet TAKE ONE TABLET BY MOUTH EVERY DAY 90 tablet 1 5 Active carbidopa-levo dopa (SINEMET) 25-100 mg tablet (One month supply to keep as rescue in case Vyalev fails and only take then: TAKE 2 TABLETS AT 6 AM., 2 TABLETS AT 9 AM., 2 TABLETS AT 12 PM., 2 TABLETS AT 3 PM., 2 TABLETS AT 6 PM., AND 1 TABLET AT 9 PM.) 330 tablet 5 Active mirtazapine (REMERON) 7.5 mg tablet TAKE ONE TABLET BY MOUTH DAILY AT BEDTIME 30 tablet 2 5 Active mirtazapine (REMERON) 7.5 mg tablet Take 1 tablet (7.5 mg total) by mouth at bed time. at bedtime 30 tablet 2 5 04/09/20 25 Discontinued Hospital, Clinic, or Other Facility Administered Medication Ordered Dose Route Frequency Start Date End Date Status lidocaine (XYLOCAINE) 4% (40 mg/mL) topical solution 120 mg 120 mg topical Once 08/17/2024 Active Active Problems Problem Noted Date Diagnosed Date Esophageal dysphagia 07/17/2024 Assessment & Plan (07/17/2024 12:41 PM EST): Pt with symptoms of solidfood dysphagia, having to cut food up small but does not seem to bother him much since he has become used to this. Barium tablet hung up at [facility] but liquids went through ok. Need OSH EGD result. May warrant repeat EGD. Can order esophageal manometry while waiting for EGD report and can help guide plan depending on EGD results. Advised pt to continue pPI at least daily. Pt's reached out to OSH GI team to request report during our clinic visit so hopefully this can be sent over soon. 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 Neurology Clinic [address] [place] [phone] Mindy German NP Upcoming DBS 04/09/2025 myChart Message [facility] [address] [place] [address] Surinder Valenzuela MD Remeron 04/08/2025 Refill [facility] [address] [place] [phone] Surinder Valenzuela MD 04/07/2025 Refill [facility] [address] [place] [phone] Surinder Valenzuela MD 03/01/2025 3:30 PM EDT Office Visit [facility] [address] [place] [phone] Surinder Valenzuela MD Parkinson's disease with dyskinesia and fluctuating manifestations (HCC) (Primary Dx) 02/17/2025 Refill [facility] [address] [place] [phone] Mindy German NP 01/10/2025 myChart Message [facility] [address] [place] [phone] Surinder Valenzuela MD [facility] area reaction from Last 3 Months Family History Medical History Relation Name Comments Parkinsonism Cousin maternal cousin Tremor Maternal Grandfather possibl e PD Relation Name Status Comments Cousin Alive Daughter 1 Alive Krystal Daughter 2 Alive Nettie Yoon Father Maternal Grandfather Mother Son Alive Demetrius Social History Tobacco Use Types Packs/Day Years Used Date Smoking Tobacco: Never Smokeless Tobacco: Never Tobacco Cessation:Counseling Given: Not Answered Alcohol Use Standard Drinks/Week Comments Yes 5 (1 standard drink = 0.6 oz pur e alcohol) Sex and Gender Information Value Date Recorded Sex Assigned at Male 06/14/2020 7:33 AM EST Legal Sex Male 10:42 AM EDT Gender Identity Male 06/14/2020 7:33 AM EST Sexual Orientation Straight 06/14/2020 7: 33 AM EST Last Filed Vital Signs Vital Sign Reading Time Taken Comments Blood Pressure 95/58 03/01/2025 4:11 PM EDT Pulse 73 03/01/2025 4:11 PM EDT Temperature 36.3 C (97.4 F) 03/01/2025 4:10 PM EDT Respiratory Rate 16 03/01/2025 4:10 PM EDT Oxygen Saturation 99% 03/01/2025 4:10 PM EDT Inhaled Oxygen Concentration - - Weight 74.4 kg (164 lb) 03/01/2025 4:10 PM EDT Height 180.3 cm (5' 11 ) 03/01/2025 4:10 PM EDT Body Mass Index 22.87 03/01/2025 4:10 PM EDT Plan of Treatment Upcoming Encounters Date Type Department Care Team (Late st Contact Info) Description 06/18/2025 8:00 AM EST Office Visit [facility] [address] [place] [address] Mindy German NP [address] [place] [address] 07/04/2025 8:00 AM EST Office Visit [facility] [address] [place] [address] Mindy Greman NP [address] [place] [address] 07/18/2025 8:00 AM EST Office Visit [facility] [address] [place] [address] Mindy German NP [address] [place] [address] 10/18/2025 2:30 PM EDT Procedure visit [facility] [address] [place] [address] Surinder Valenzuela MD [address] [place] [address] Health Maintenance Due Date Last Done Comments Cologuard 1961 FOBT / Fit Test 1961 HIV Screening 1961 Hepatitis C Screening 1961 Sigmoidoscopy 1961 DTaP,Tdap,and Td Vaccines (1 - Tdap) 1983 Zoster Vaccines (1 of 2) 2011 Alcohol/Substance Use Screening 08/02/2024 07/17/2024 Depression Screening and Follow-Up 08/02/2024 Social Drivers of Health Annual Screening 08/02/2024 Influenza Vaccine (#1) 2025 , 04/09/2023, 05/04/2022, Additional history exists Pneumococcal Vaccine: 50+ Years (3 of 3 - PCV20 or PCV21) 05/30/2025 05/30/2020, 11/16/2017 Colon Cancer Screening 10/21/2032 Colonoscopy 10/21/2032 10/21/2022 RSV Vaccine (60+ years old and patients) (1 - 1-dose 75+ series) 2036 COVID-19 Vaccine Completed 04/07/2024, 12/2022, 06/08/2022, Additional history exists Hepatitis B Vaccines Aged Out No long er eligible based on patient's age to complete this topic Procedures * Due to [place] state law, this organization might not be sharing negative HIV tests. Procedure Name Priority Date/Time Associated Diagnosis Comments COLONOSCOPY 10/21/2022 from Last 3 Months or Most Recently Relevant to Health Maintenance Results * Due to [place] state law, this organization might not be sharing negative HIV tests. * Colonoscopy (10/21/2022) 10/21/2022 us Onbase Scan [facility] Final Resu lt from Last 3 Months or Most Recently Relevant to Health Maintenance Insurance [facility] OUT OF STATE PPO Care Teams Adult Manager Relationship Specialty Start Date End Date Galileo Gore [address] [place] [address] [place] [address] PCP - General Internal Medicine 02/08/20
--- OUTSIDE RECORDS SUMMARY | 2025-04-12 16:49 | XMS_ITS | Encounter Summary ---
Author Organization [facility] Address [address] [place] [phone] Phone Care Team Providers Care Tire Servicer Name Role Phone Galileo Gore MD Primary Care Provider Encounter Details Date Type Department Care Team (Latest Contact Info) Description 11/02/2022 Transcribe Orders Virtual Department [address] [place] [address] Surinder Valenzuela MD [address] [place] [address] [phone] Oropharyngeal dysphagia (Primary Dx) Social History Tobacco Use Types Packs/Day Years [...] (Latest Contact Info) Description 05/22/2024 Procedure Pass [facility] - MRI [address] [facility], 6th [place] [address] 09/11/2024 Procedure Pass [facility] MRI, Lunder [address] [facility], 4th [place] [address] 04/04/2025 Procedure Pass MRI, [facility] [address] [place] [address] 04/20/2025 11:45 AM EDT Pre-Admission Testing [facility] Pre-Procedure Evaluation Department Please [place] [phone] [facility] Ad[facility], Provider 04/26/2025 12:00 PM EDT Appointment MRI, [facility] [address] [place] [address] Shawna Lopez PA-C [address] [place] [phone] [email or web address] 05/04/2025 Procedure Pass [facility] PERIOPERATIVE DEPT [address] [place] [address] 05/04/2025 7:00 AM EDT Appointment [facility] MRI, [address] [facility], 4th [place] [address] Mj Young MD, PhD [address] [place] [phone] [email or web address] 05/04/2025 7:45 AM EDT Hospital Encounter [facility] PERIOPERATIVE DEPT [address] [place] [phone] Mj Young MD, PhD [address] [place] [phone] [email or web address] 05/04/2025 7:45 AM EDT - 05/04/2025 2:50 PM EDT Surgery [facility] PERIOPERATIVE DEPT [address] [place] [phone] Mj Young MD, PhD [address] [place] [phone] [email or web address] INSERTION STIMULATOR DEEP BRAIN 05/10/2025 Procedure Pass [facility] Periop Dept [address] [place] [address] 05/10/2025 Procedure Pass [facility] Periop Dept [address] [place] [address] 05/11/2025 12:45 PM EDT Pre-Admission Testing [facility] Pre-Procedure Evaluation Department [place] [phone] [facility] Ad[facility], Provider 05/18/2025 Procedure Pass [facility] PERIOPERATIVE DEPT [address] [place] [address] 05/18/2025 2:39 PM EDT Hospital Encounter [facility] PERIOPERATIVE DEPT [address] [place] [phone] Mj Young MD, PhD [address] [place] [phone] [email or web address] 05/18/2025 2:39 PM EDT - 05/18/2025 5:01 PM EDT Surgery [facility] PERIOPERATIVE DEPT [address] [place] [phone] Mj Young MD, PhD [address] [place] [phone] [email or web address] PLACEMENT PULSE GENERATOR [email or web address] 05/21/2025 11:30 AM EDT Telephone [facility] Neurosurgery 55 [facility], 7th Floor, [address] [place] [address] Shawna Lopez PA-C [address] [place] [phone] [email or web address] 11/05/2025 9:45 AM EDT Appointment [facility] - MRI 32 [facility], 6th [place] [address] Keri Smith, BLADDER CHANGER [address] [phone] [email or web address] 11/05/2025 1:00 PM EDT Office Visit [facility] Cardiovascular Medicine [address] [place] [address], 5th Floor, [address] [place] [address] Keri Smith, MICHAEL 32 [facility] [address] [place] [address] [email or web address] Scheduled Procedures Name Priority Associated Diagnoses Date/Ti me INSERTION STIMULATOR DEEP BRAIN Parkinson's disease with dyskinesia and fluctuating manifestations 05/04/2025 7:45 AM EDT MODIFIER MRI Parkinson's disease with dyskinesia and fluctuating manifestations 05/04/2025 7:45 AM EDT PLACEMENT PULSE GENERATOR INFRACLAVICULAR Parkinson's disease, unspecified whether dyskinesia present, unspecified whether manifestations fluctuate 05/18/2025 2:39 PM EDT documented as of this encounter Results * FL (Speech) Video Swallow Study (12/22/2022 10:29 AM EDT) Anatomical Region Laterality Modality Radio Fluoroscop y 12/22/2022 12:1 7 PM EDT Impressions 12/22/2022 12:34 PM EDT No epiglottic penetration, significant residuum, or other hypopharyngeal dysmotility apparent. These findings were reviewed with the speech pathologist. There seems to be chronic luminal narrowing of the distal esophagus due to extrinsic mass-effect from descending aortic tortuosity. FLUOROSCOPY TIME: 1 min. 33 sec; 686 IMAGES/FRAMES POS - [id number] Narrative 12/22/2022 12:34 PM EDT COMPARISON: Outside chest CT dated 11/04/2021 FINDINGS: A preliminary lateral view the neck reveals no acute bony abnormality or large osteophytes. With the patient in the upright lateral projection thin liquid barium, applesauce with barium paste, and yecenia cracker with barium paste was presented by the speech pathologist with deglutition assessed fluoroscopically and recorded on rapid sequence digital images. There was adequate tongue base control of all substances and appropriate mastication of cracker. No abnormality the lingual phase was noted. Once the swallows were triggered no epiglottic penetration, nasopharyngeal reflux, or cricopharyngeal achalasia were detected. Minimal vallecular residual of cracker cleared following ingestion of water. Limited evaluation of the esophagus with liquids revealed adequate drainage from the upper portion but with a region of apparently chronic luminal narrowing in its distal portion which on the CT seems to be related to adjacent tortuosity of the descending aorta, with a small amount of residual barium persisting within the lumen above this level. Procedure Note Berny Fitzgerald MD - 12/22/2022 COMPARISON: Outside chest CT dated 11/04/2021 FINDINGS: A preliminary lateral view the neck reveals no acute bony abnormality orlarge osteophytes. With the patient in the upright lateral projection thinliquid barium, applesauce with barium paste, and yecenia cracker withbarium paste was presented by the speech pathologist with deglutitionassessed fluoroscopically and recorded on rapid sequence digital images. There was adequate tongue base control of all substances and appropriatemastication of cracker. No abnormality the lingual phase was noted. Oncethe swallows were triggered no epiglottic penetration, nasopharyngealreflux, or cricopharyngeal achalasia were detected. Minimal vallecularresidual of cracker cleared following ingestion of water. Limited evaluation of the esophagus with liquids revealed adequatedrainage from the upper portion but with a region of apparently chronicluminal narrowing in its distal portion which on the CT seems to berelated to adjacent tortuosity of the descending aorta, with a smallamount of residual barium persisting within the lumen above this level. IMPRESSION: No epiglottic penetration, significant residuum, or other hypopharyngealdysmotility apparent. These findings were reviewed with the speechpathologist. There seems to be chronic luminal narrowing of the distal esophagus due toextrinsic mass-effect from descending aortic tortuosity. FLUOROSCOPY TIME: 1 min. 33 sec; 686 IMAGES/FRAMES POS - [id number] us Surinder Valenzuela MD IMG FL EXAMS Final Res ult documented in this encounter Visit Diagnoses Diagnosis Oropharyngeal dysphagia- Primary Dysphagia, oropharyngeal phase Oropharyngeal dysphagia- Primary Dysphagia, oropharyngeal phase Parkinson's disease with dyskinesia and fluctuating manifestations Parkinson's disease, unspecified whether dyskinesia present, unspecified whether manifestations fluctuate documented in this encounter Care Teams Tire Servicer Relationship Specialty Start Date End Date Galileo Gore MD [address] [place] [address] [place] [address] PCP - General 01/30/14 documented as of this encounter Additional Source Comments The information contained in this document represents components of the legal health record. It is not the complete legal health record.[facility]
--- OUTSIDE RECORDS SUMMARY | 2025-04-12 16:49 | XMS_ITS | Encounter Summary ---
Author Organization [facility] Address [address] [place] [address] Care Team Providers Care Executive Business Coach Name Role Phone Galileo Gore Primary Care Provider [phone] Encounter Details Date Type Department Care Team (Late st Contact Info) Description 04/09/2025 myChart Message [facility] [address] [place] [address] Mindy German NP [address] [place] [address] Upcoming DBS Social History Tobacco Use Types Packs/Day Years [...] Description 06/18/2025 8:00 AM EST Office Visit [facility] [address] [place] [phone] Mindy German NP [address] [place], [place] [phone] 07/04/2025 8:00 AM EST Office Visit [facility] [address] [place] [address] Mindy German NP [address] [place] [address] 07/18/2025 8:00 AM EST Office Visit [facility] [address] [place] [phone] Mindy German NP [address] [place] [address] 10/18/2025 2:30 PM EDT Procedure visit [facility] [address] [place] [address] Surinder Valenzuela MD [address] [place] [phone] documented as of this encounter Visit Diagnoses Not on filedocumented in this encounter Care Teams Executive Business Coach Relationship Specialty Start Date End Date Galileo Gore [address] [place] [address] [place] [address] PCP - General Internal Medicine 02/08/20 documented as of this encounter
--- OUTSIDE RECORDS SUMMARY | 2025-04-12 16:49 | XMS_ITS | Patient Health Record ---
Author Organization Galileo Gore MD Address [address] [place], [place] [address] Care Team Providers Care Branch Office Administrator Name Role Phone Galileo Gore Primary Care Provider Allergies No Known Allergies Results Component Value Reference Range Notes Complete Blood Count Auto Di ff Reviewed date:03/22/2025 04:28:07 PM Interpretation: Performing Lab:[facility], [address] [place] [phone] Notes/Report: White Blood Count 6.8 4.8-10.8 X10*3/uL [...] Panel Reviewed date:03/22/2025 12:31:57 PM Interpretation: Performing Lab:[address] [address] Notes/Report: Triglycerides 107 <150 mg/dL Desirable Triglyceride: [...] (Free>4and<10) Reviewed date:03/22/2025 12:32:12 PM Interpretation: Performing Lab:[address] [address] Notes/Report: PSA,Total (Free>4and<10) 1.16 0.00-4.00 ng/mL A [...] A1c Reviewed date:03/22/2025 12:32:04 PM Interpretation: Performing Lab:[address] [address] Notes/Report: Hemoglobin A1c % 5.4 <6.0 % [...] average glucose, using the formula of the V7F-Hsslscr Average Glucose study (ADAG), Diabetes Care, Vol.31,#8, Mar. 2007 Occult Blood, Stool, Guaiac Reviewed date:04/12/2025 12:09:37 PM Interpretation:Negative Performing Lab: Notes/Report: Negative Occult Blood, Stool, Guaiac Neg Blood Urea Nitrogen Reviewed date:04/12/2025 02:12:14 PM Interpretation: Performing Lab:[facility], [address] [place] [phone] Notes/Report: Blood Urea Nitrogen 21 9-16 mg/dL Microalbumin, Random Reviewed date:04/12/2025 04:34:47 PM Interpretation: Performing Lab:[address] [address] Notes/Report: Creatinine Urine 133.91 Microalbumin Urine 10.0 Microalbum/Creatinine Ratio Ur 7.4 <30 ug/mg cr Albumin/Creatinine Ratio Reference Ranges: Normal: < 30 ug/mg creatinine Microalbuminuria: 30 - 300 ug/mg creatinine Clinical Albuminuria: > 300 ug/mg creatinine UA ClnCatch+Micro w/rflx Cul t Reviewed date:04/12/2025 04:35:07 PM Interpretation: Performing Lab:[facility], [address] [place] [phone] Notes/Report: [id number] Urine, Clean Catch Color Urine Dark Yellow Appearance Urine Clear PH 6.5 5.0-9.0 Glucose Urine UA Negative Negative mg/dL Urine Blood Negative Negative Specific Lynn - Urine 1.025 1.005-1.025 Urine Protein Negative Neg-Trace mg/dL Urine Ketones Trace Negative mg/dL Nitrite Urine Negative Negative Leukocyte Esterase Urine Small (1+) Negative RBC Urine 0-2 0-2 /HPF WBC Urine 6-10 0-5 /HPF Squamous Epithelial Cell Urine 0-2 0-2 /HPF Bacteria Urine None Seen None Seen Hyaline Casts Urine 0-2 0-2 /LPF XR lumbar spine 4V min Reviewed date:03/16/2025 09:33:47 AM Interpretation: Performing Lab: Notes/Report: [facility] [address] [place] [address] [place] [address] XRay Report Signed Patient: Wellington Daniel MR#: [id number] 7 : 1960 Acct:[id number] Age/Sex: 64 / M ADM Date: 03/15/25 Loc: HO.HMGCX Attending Dr: Galileo Gore MD Ordering Physician: Galileo Gore MD Date of Service: 03/15/25 Procedure(s): XR lumbar spine 4V min Accession Number(s): [id number] cc: Galileo Gore MD XR LUMBAR SPINE [...] signed by Sandra Ramirez MD in OV> 03/15/251749 DD/ 23 TD/TT: 03/15/25 163 Fisheries Enforcement Officer: [facility] [address] [place] [address] XRay Report Signed Patient: Wellington Daniel MR#: [id number] 7 : 1960 Acct:[id number] Age/Sex: 64 / M ADM Date: 03/15/25 Loc: .HMGCX Attending Dr: Galileo Gore MD Ordering Physician: Galileo Gore MD Date of Service: 03/15/25 Procedure(s): XR lumbar spine 4V min Accession Number(s): [id number] cc: Galileo Gore MD XR LUMBAR SPINE 4 OR MORE VIEWS Reason: M54.9 LOW BA CK PAIN Comparison: Radiographs on May 22, 2019 [...] degenerative changes, mildly progressed from 2019. Electronically eliza d by: Sandra Ramirez MD 03/15/2025 05:50 PM EDT RP Dictated By: Sandra Ramirez MD Signed By: <Electronically signed by Sandra Ramirez MD in OV> 03/15/251749 DD/ 23 TD/TT: 03/15/25 163 Fisheries Enforcement Officer: Pathology Reviewed date:06/01/2024 11:45:17 AM Interpretation: Performing Lab:[facility], [address] [place] [phone] Notes/Report: -- ---- Name: Wellington Daniel Age/Sex: 63/M : 1960 Unit#: [id number] Attend Dr: Mj Pena MD Re05/29/24 Status : [facility] Location: [facility] Disch: -- ---- SPEC : [id number] RECD : 05/30/24 STATUS: FRANDY VALENCIA NUM: [id number] GUILLERMO: 05/29/[address] [facility] [address]: Mj Pena MD ENTERED: 05/30/24 37 SP TYPE: Surgical [...] Received in 2 parts. A. Received in formalin labeled ?gastric antrum biopsy? are 3 fragments of silva-white soft tissue measuring 0.3-0.4 cm in greatest dimension which are wrapped in lens paper and entirely submitted f or microscopic examination, 3 pieces in cassette A. B. Received in formalin labeled ?gastric polyps? are 2 fragments of silva soft tissue measuring 0.3 and 0. 3 cm in greatest dimension which are wrapped in lens paper and entirely submitted for microscopic examination, 2 pieces in cassette B. [facility] Copies To: Galileo Gore MD [facility] [address] [place] [address] [place] [address] CONTINUED ON NEXT PAGE -- ---- Name: Wellington Daniel Age/Sex: 63/M : 1960 Unit#: [id number] Attend Dr: Mj Pena MD Re05/29/24 Status : [facility] Location: [facility] Disch: -- ---- SPEC : [id number] RECD : 05/30/24 STATUS: FRANDY VALENCIA NUM: [id number] GUILLERMO: 05/29/24-[address] [facility] [address]: Mj Pena MD ENTERED: 05/30/24- 37 SP TYPE: Surgical OTHR DR: Galileo Gore MD ORDERED: HE Stain/6, Gross Micro L4/2, IHC/2, Special st. 2/2, H. pylori/2, AB/PAS/2 Copies To: (Continued) Mj Pena MD [facility] [address] [place] [address] -- ---- Signed (signature on file) Pedro Gomez MD 06/01/24 1014 -- ---- END OF REPORT Comprehensive Met. Panel Reviewed date:03/22/2025 04:23:22 PM Interpretation: Performing Lab:[facility], [address] [place] [phone] Notes/Report: Sodium 141 135-145 mmol/L Potassium 4.6 3.3-5.1 mmol/L Chloride 106 96-108 mmol/L Carbon Dioxide 28 22-29 mmol/L Anion Gap 12 12-20 Blood Urea Nitrogen 26 9-16 mg/dL Creatinine 1.08 0.5-1.4 mg/dL Estimated Glomerular Filt Rate > 60 Chronic Kidney Disease: Estimated GFR < 60 mL/min/1.73m2 Severe Kidney Disease: Estimated GFR < 15 mL/min/1.73m2 Glucose Random 76 60-115 mg/dL Calcium 9.1 8.4-10.2 mg/dL Bilirubin Total 0.6 0.0-1.0 mg/dL Aspartate Amino Transferase 25 5-37 U/L Alanine Aminotransferase 10 0-40 U/L Total Protein 6.9 6.5-8.0 g/dL Albumin Level 4.6 3.5-5.0 g/dL Alkaline Phosphatase 78 39-117 U/L Reason For Referral No Information Medications Medication SIG (Take, Route, Frequency, Duration) Notes Start Date End Date Status Ambien 5 MG 1 tablet at bedtime Orally Once a day for 10 days 08/28/2019 Not-Taking Cyclobenzaprine HCl 5 MG 1 tablet at bed time as needed Orally twice a day for 10 days 03/15/2025 Not-Taking Carbidopa-Levodopa ER 50-200 MG 1 tablet as needed Orally hs Active Melatonin 5 MG 1 tablet in the evening Orally Once a day for 30 day(s) Active Finasteride 5 MG 1 tablet Orally Once a day Active Mirtazapine 7.5 MG 1tablets at bedtime Orally Once a day Active Tamsulosin HCl 0.4 MG TAKE ONE CAPSULE B Y MOUTH TWICE A DAY Active Omeprazole 40 MG 1 capsule 30 minutes before morning meal Orally Once a day Active Sildenafil Citrate 100 MG TAKE 1/2 TABLE T BY MOUTH ONCE DAILY NEEDED for 60 Active Gabapentin 300 MG 2 capsules once a da y for 90 days Active Carbidopa-Levodopa 25-100 MG 2 tablet as needed Orally 5 times a day Active Immunizations Vaccine Route Administration Date Status [...] Administe red Fluarix Quadrivalent IM Intramuscular 04/17/2020 Administe red Prevnar 13 IM Intramuscular 05/30/2020 Administered Covid Vaccine Unknown 08/21/2020 Administered Covid Vaccine Unknown 09/11/2020 Administered Fluarix Quadrivalent IM Intramuscular 04/24/2021 Administe red SARS-COV-2 Pfizer Unknown 08/27/2020 Administered SARS-COV-2 Pfizer Unknown 09/11/2020 Administered SARS-COV-2 Pfizer Unknown 05/16/2021 Administered Fluarix Quadrivalent IM Intramuscular 05/04/2022 Administe red Fluarix Quadrivalent IM Intramuscular 04/09/2023 Administe red Fluarix Quadrivalent - 150 IM Intramuscular 06/16/2024 Adm inistered Fluarix Quadrivalent - 150 IM Intramuscular 04/12/2025 [...] Problem Status W/U Status Risk Notes Problem 288742560 Neuropathy (G62.9) Active confirmed Problem 482840228 Irritable bowel syndrome with diarrhea (K58.0) Active confirmed Problem 61400375 Prostatism (N40.0) Active confirmed Problem 6885678 Primary insomnia (F51.01) Active confirmed Problem 91238380 Diplopia (H53.2) Active confirmed Problem 745031606 Tubular adenoma of colon (D12.6) Active confirmed Problem 9182002 Prediabetes (R73.09) Active confirmed Problem 817865888 Cervical disc disease (M50.90) Active confirmed Problem 628033764 PAC (premature atrial contraction) (I49.1) Active confirmed Problem 82944427 Sciatica of left side (M54.32) Active confirmed Problem 53319053 Constipation, unspecified constipation type (K59.00) Active confirmed Problem Dysthymia (35782438) Dysthymia (F34.1) Active confirmed Problem 64433646993810 Pharyngeal dysphagia (R13.13) Active confirmed Problem 61870891 Reflux gastritis (K29.60) Active confirmed Problem 155199186 Thoracic aneurys m without mention of rupture (I71.2) Active confirmed Problem 62627851 VSD (ventricular septal defect) (Q21.0) Active confirmed Problem Spasm of bladder (516355114) Bladder spasms (N32.89) Active confirmed Problem 918051869 Elevated PSA (R97.20) Active confirmed Problem 86194357 Parkinson's disease without dyskinesia, unspecified whether manifestations fluctuate (G20.A1) Active confirmed Vital Signs Blood pressure diastolic 60 mm Hg 04/12/2025 june ght is down 2 pounds since 03-15-25 Height 70 in 04/12/2025 weight is down 2 pounds since 03-15-25 Blood pressure systolic 112 mm Hg 04/12/2025 weig ht is down 2 pounds since 03-15-25 Weight 164 lbs 04/12/2025 weight is down 2 pounds since 03-15-25 BMI 23.53 kg/m2 04/12/2025 weight is down 2 pounds since 03-15-25 Encounters Encounter Location Date Provider Diagnosis Galileo Gore MD [address] [place] [id number] 03/22/2025 Galileo Gore Blood tests for routine general physical examination Z00.00 ; Prediabetes R73.09 and Elevated PSA R97.20 Galileo Gore MD [address] [place] [id number] 04/12/2025 Galileo Gore Annual physical exam Z00.00 ; Tubular adenoma of colon D12.6 ; Parkinson's disease without dyskinesia, unspecified whether manifestations fluctuate G20.A1 ; Encounter for administration of vaccine Z23 ; Elevated BUN R79.9 ; Prediabetes R73.09 ; Elevated PSA R97.20 ; Reflux gastritis K29.60 ; Colon cancer screening Z12.11 and Depression screening Z13.31 Galileo Gore MD [address] [place] [id number] 04/18/2024 Galileo Gore Irritable bowel syndrome with diarrhea K58.0 ; Reflux gastritis K29.60 and Parkinson's disease without dyskinesia, unspecified whether manifestations fluctuate G20.A1 Galileo Gore MD [address] [place] [id number] 06/16/2024 Galileo Gore Parkinson's disease without dyskinesia, unspecified whether manifestations fluctuate G20.A1 ; Reflux gastritis K29.60 and Encounter for immunization Z23 Galileo Gore MD [address] [place] [id number] 09/14/2024 Galileo Gore Irritable bowel syndrome with diarrhea K58.0 ; Parkinson's disease without dyskinesia, unspecified whether manifestations fluctuate G20.A1 and Injury of flexor tendon of right hand, initial encounter S66.801A Galileo Gore MD [address] [place] [id number] 03/15/2025 Galileo Gore Back pain M54.9 Galileo Gore MD [address] [place] [id number] 03/16/2025 Galileo Gore Back pain M54.9 Galileo Gore MD [address] [place] [id number] 03/16/2025 Galileo Gore Assessments Encounter Date Diagnosis (ICD Code) Assessment Notes Treatment Notes Treatment Clinical Notes Section Notes 03/22/2025 Blood tests for routine general physical examination (ICD-10 - Z00.00) 04/12/2025 Annual physical exam (ICD-10 - Z00.00) labs reviewed and discussed with patient 04/12/2025 Tubular adenoma of colon (ICD-10 - D12.6) had colonoscopy 2 years ago 04/18/2024 Irritable bowel syndrome with diarrhea (ICD-10 [...] results of manometry at gastro clinic at [facility] 09/14/2024 Parkinson's disease without dyskinesia, unspecified whether manifestations fluctuate (ICD-10 - G20.A1) has planned treatment at [facility] 03/15/2025 Back pain (ICD-10 - M54.9) patient verbalized understanding of medication and directins for use 03/16/2025 Back pain (ICD-10 - M54.9) 03/22/2025 Prediabetes (ICD-10 - R73.09) 04/12/2025 Parkinson's disease without dyskinesia, unspecified whether manifestations fluctuate (ICD-10 - G20.A1) going to get surgery in 2 weeks is going to check with surgeon to see if he should get a covid vaccination before his surgery 04/18/2024 Parkinson's disease without dyskinesia, unspecified whether manifestations fluctuate (ICD-10 - G20.A1) is going for evalution beginning of 06/16/2024 Encounter for immunization (ICD-10 - Z23) flu vaccine administered 09/14/2024 Injury of flexor tendon of right hand, initial encounter (ICD-10 - S66.801A) if not better in 2 weeks to call and will send to hand surgeon 03/22/2025 Elevated PSA (ICD-10 - R97.20) 04/12/2025 Encounter for administration of vaccine (ICD-10 [...] - Z13.31) negative screen Plan Of Treatment Pending Test Test Name Order Date Electrocardiogram (EKG) 10/18/2015 Electrocardiogram (EKG) 06/23/2011 XR GI SERIES 02/01/2024 XR GI SERIES 03/14/2024 Comprehensive [place]. Panel Fast Microalbumin, Random 03/22/2025 US breast RT limited 03/24/2022 UA ClnCatch+Micro w/rflx Cult 03/22/2025 Next Appt Details Provider Name:Galileo Mccray ier, 07/13/2025 10:15:00 AM, [address], [address], [place], [place], [phone], Provider Name:Galileo Mccray ier, 04/09/2026 07:45:00 AM, [address] [facility] [address], [address], [place], [place], [phone], Provider Name:Galileo Mccray ier, 04/15/2026 10:30:00 AM, [address], [address], [place], [place], [phone], Insurance Providers Payer Name Payer Address Payer Phone Subscriber Number Group Number Insured Name Patient Relationship to Insured Coverage Start Date Coverage End Date [employer] [facility] [address] [place], [place] [id number] [id number] Wellington Daniel Self - patient is the insured Medical (General) History Medical History History ICD Code colonoscopy 09/2011 due in 5 years; colonoscopy done 06/30/[address] Pena - repeat 5 years(2021) Colonoscopy 10/21/22 repeat 5 years Parkinson disease G20 Parkinson disease
--- OUTSIDE RECORDS SUMMARY | 2025-04-12 16:49 | XMS_ITS | Encounter Summary ---
Author Organization [facility] Address [address] [place] [address] Care Team Providers Care Diamond Mounter Name Role Phone Galileo Gore Primary Care Provider [phone] Encounter Details Date Type Department Care Team (Late st Contact Info) Description 05/04/2024 myChart Message [facility] Speech Therapy Department [address] [place] [address] Mychart, Generic Provider [address] [phone] MBS Appt Social History Tobacco Use Types Packs/Day Years [...] Description 06/18/2025 8:00 AM EST Office Visit [facility] [address] [place] [address] Mindy German NP [address] [place] [address] 07/04/2025 8:00 AM EST Office Visit [facility] [address] [place] [address] Mindy German NP [address] [place] [address] 07/18/2025 8:00 AM EST Office Visit [facility] [address] [place] [address] Mindy German NP [address] [place] [address] 10/18/2025 2:30 PM EDT Procedure visit [facility] Neurology [address] [address] Surinder Valenzuela MD [address] [place] [address] documented as of this encounter Visit Diagnoses Not on filedocumented in this encounter Care Teams Diamond Mounter Relationship Specialty Start Date End Date Galileo Gore [address] [place] [address] [place] [address] PCP - General Internal Medicine 02/08/20 documented as of this encounter
--- OUTSIDE RECORDS SUMMARY | 2025-04-12 16:50 | XMS_ITS | Encounter Summary ---
Author Organization [facility] Address [address] [facility] [address] [place] [address] Phone Care Team Providers Care Hand Box Folder Name Role Phone Galileo Gore MD Primary Care Provider Encounter Details Date Type Department Care Team (Late st Contact Info) Description 12/09/2017 Procedure Pass [facility], Tristan [address] [facility], 2nd [place] [address] Social History Tobacco Use Types Packs/Day Years [...] (Latest Contact Info) Description 05/22/2024 Procedure Pass [facility] - MRI [address] [facility], 6th [place] [address] 09/11/2024 Procedure Pass [facility], Lunder [address] [facility], 4th [place] [address] 04/04/2025 Procedure Pass [facility], [facility] [address] [place] [address] 04/20/2025 11:45 AM EDT Pre-Admission Testing [facility] Pre-Procedure Evaluation Department Please [place] [phone] [facility] Admitting, Provider 04/26/2025 12:00 PM EDT Appointment [facility], [facility] [address] [place] [address] Shawna Lopez PA-C [address] [place] [address] [email or web address] 05/04/2025 Procedure Pass [facility]IVE [facility] [address] [place] [phone] 05/04/2025 7:00 AM EDT Appointment [facility] MRI, Lunder [address] [facility], 4th [place] [address] Mj Young MD, PhD [address] [place] [phone] [email or web address] 05/04/2025 7:45 AM EDT Hospital Encounter [facility] [address] [place] [phone] Mj Young MD, PhD [address] [place] [phone] [email or web address] 05/04/2025 7:45 AM EDT - 05/04/2025 2:50 PM EDT Surgery [facility] [address] [place] [phone] Mj Young MD, PhD [address] [place] [phone] [email or web address] INSERTION STIMULATOR DEEP BRAIN 05/10/[address] [facility] Periop Dept [address] [place] [address] 05/10/[address] [facility] Periop Dept [address] [place] [address] 05/11/2025 12:45 PM EDT Pre-Admission Testing [facility] Pre-Procedure Evaluation Department Please [place] [address] [facility] Admitting, Provider 05/18/2025 Procedure Pass [facility] [address] [place] [phone] 05/18/2025 2:39 PM EDT Hospital Encounter [facility] [address] [place] [phone] Mj Young MD, PhD [address] [place] [phone] [email or web address] 05/18/2025 2:39 PM EDT - 05/18/2025 5:01 PM EDT Surgery [facility] [address] [place] [phone] Mj Young MD, PhD [address] [place] [phone] [email or web address] GENERATOR [email or web address] 05/21/2025 11:30 AM EDT Telephone [facility] Neurosurgery [address] [place] [address], 7th Floor, [address] [place] [address] Shawna Lopez PA-C [address] [place] [address] [email or web address] 11/05/2025 9:45 AM EDT Appointment [facility] - MRI [address] [place] [address], 6th [place] [address] Keri Smith, MICHAEL [address] [place] [phone] [email or web address] 11/05/2025 1:00 PM EDT Office Visit [facility] Cardiovascular Medicine [address] [facility], 5th Floor, [address] [place] [address] Keri Smith, GROUT MACHINE OPERATOR [address] [facility] [address] [place] [address] [email or web address] Scheduled Procedures Name Priority Associated Diagnoses [...] on filedocumented in this encounter Care Teams Hand Box Folder Relationship Specialty Start Date End Date Galileo Gore MD [address] [place] [address] [place] [address] PCP - General 01/30/14 documented as of this encounter Additional Source Comments The information contained in this document represents components of the legal health record. It is not the complete legal health record.[facility]
--- OUTSIDE RECORDS SUMMARY | 2025-04-12 16:50 | XMS_ITS | Encounter Summary ---
Author Organization [facility] Address [address] [place] [address] Phone Care Team Providers Care Bookkeeping Teacher Name Role Phone Galileo Gore MD Primary Care Provider Encounter Details Date Type Department Care Team (Late st Contact Info) Description 06/08/2020 Procedure Pass [facility] Cardiac US [address] [place] [address] Social History Tobacco Use Types Packs/Day Years [...] (Latest Contact Info) Description 05/22/2024 Procedure Pass [facility] [address] [facility] [address] [place] [address] 09/11/2024 Procedure Pass [facility] MRI, Lunder [address] [facility] 4[facility] [place] [address] 04/04/2025 Procedure Pass MRI, [facility] [address] [place] [address] 04/20/2025 11:45 AM EDT Pre-Admission Testing [facility] Pre-Procedure Evaluation Department Please [place] [phone] [facility] Admitting, Provider 04/26/2025 12:00 PM EDT Appointment MRI, [facility] [address] [place] [address] Shawna Lopez PA-C [address] [place] [phone] [email or web address] 05/04/2025 Procedure Pass [facility] PERIOPERATIVE DEPT [address] [place] [phone] 05/04/2025 7:00 AM EDT Appointment [facility] MRI, Lunder [address] [facility], 4th [place] [address] Mj Young MD, PhD [address] [place] [phone] [email or web address] 05/04/2025 7:45 AM EDT Hospital Encounter [facility] PERIOPERATIVE DEPT [address] [place] [phone] Mj Young MD, PhD [address] [place] [phone] [email or web address] 05/04/2025 7:45 AM EDT - 05/04/2025 2:50 PM EDT Surgery [facility] PERIOPERATIVE DEPT [address] [place] [phone] Mj Young MD, PhD [address] [place] [phone] [email or web address] INSERTION STIMULATOR DEEP BRAIN 05/10/2025 Procedure Pass [facility] Periop Dept [address] [place] [phone] 05/10/[address] [facility] [address] [place] [address] 05/11/2025 12:45 PM EDT Pre-Admission Testing [facility] Pre-Procedure Evaluation Department Please [place] [phone] [facility] Admitting, Provider 05/18/2025 Procedure Pass [facility] PERIOPERATIVE DEPT [address] [place] [phone] 05/18/2025 2:39 PM EDT Hospital Encounter [facility] PERIOPERATIVE DEPT [address] [place] [phone] Mj Young MD, PhD [address] [place] [phone] [email or web address] 05/18/2025 2:39 PM EDT - 05/18/2025 5:01 PM EDT Surgery [facility] PERIOPERATIVE DEPT [address] [place] [phone] Mj Young MD, PhD [address] [place] [phone] [email or web address] PLACEMENT PULSE GENERATOR [email or web address] 05/21/2025 11:30 AM EDT Telephone [facility] Neurosurgery [address] [place] [address], 7th Floor, [address] [place] [address] Shawna Lopez PA-C [address] [place] [phone] [email or web address] 11/05/2025 9:45 AM EDT Appointment [facility] - MRI [address] [place] [address], 6th [place] [address] Keri mSith, MICHAEL [address] [place] [phone] [email or web address] 11/05/2025 1:00 PM EDT Office Visit [facility] Cardiovascular Medicine [address] [place] [address], 5th Floor, [address] [place] [address] Keri Smith, FIELD PLACEMENT DIRECTOR [address] [facility] [address] [place] [address] [email or web address] Scheduled Procedures Name Priority Associated Diagnoses [...] on filedocumented in this encounter Care Teams Bookkeeping Teacher Relationship Specialty Start Date End Date Galileo Gore MD [address] [place] [address] Dr GIANG [address] [place] [phone] PCP - General 01/30/14 documented as of this encounter Additional Source Comments The information contained in this document represents components of the legal health record. It is not the complete legal health record.[facility]
--- OUTSIDE RECORDS SUMMARY | 2025-04-12 16:50 | XMS_ITS | Encounter Summary ---
Author Organization [facility] Address [address] [place] [address] Care Team Providers Care Community Service Worker Name Role Phone Galileo Gore Primary Care Provider [phone] Encounter Details Date Type Department Care Team (Late st Contact Info) Description 10/07/2020 myChart Message [facility] [address] [place] [phone] Surinder Valenzuela MD [address], [place] [phone] RE: Visit Follow-Up Question Social History Tobacco Use Types Packs/Day Years [...] Description 06/18/2025 8:00 AM EST Office Visit [facility] [address] [place] [address] [phone] Mindy German NP [address], [place] [phone] 07/04/2025 8:00 AM EST Office Visit [facility] [address] [place] [phone] Mindy German NP [address] [place] [phone] 07/18/2025 8:00 AM EST Office Visit [facility] [address] [place] [phone] Mindy German NP [address] [place] [phone] 10/18/2025 2:30 PM EDT Procedure visit [facility] [address] [place] [phone] Surinder Valenzuela MD [address] [place] [phone] documented as of this encounter Visit Diagnoses Not on filedocumented in this encounter Care Teams Community Service Worker Relationship Specialty Start Date End Date Galileo Gore [address] [place] [address] [place] [address] PCP - General Internal Medicine 02/08/20 documented as of this encounter
== END 2025-04-12 12:38 | disposition home or self-care (01) ==
LOC: HO.LNP 12:37
PROVIDERS: Visit Provider Internal Medicine
DX: Z00.00 Encounter for general adult medical examination without abnormal findings (principal); R79.9 Abnormal finding of blood chemistry, unspecified; R73.09 Other abnormal glucose; G20.A1 Parkinson's disease without dyskinesia, without mention of fluctuations
CPT/HCPCS: 81001; 82043; 82570; 84520; 87086